=== PATIENT | male | born 1960 | race Caucasian/White ===

== ENCOUNTER 2018-01-16 17:27 | Emergency (ER) | payer OTHER ==
[~2018-01-16] VITALS: Ht 180.3 cm; Wt 74.8 kg
[2018-01-16 17:36] VITALS: Ht 180.3 cm; Wt 74.8 kg
[2018-01-16] MEDS ORDERED: KETOROLAC TROMETHAMINE 30 MG/ML VIAL IV STA (17:45)
[2018-01-16] MEDS ORDERED: SODIUM CHLORIDE 0.9% 1000ML 1,000 ML IV STA (17:45)
[2018-01-16] MEDS ORDERED: SODIUM CHLORIDE 0.9% 1000ML 1,000 ML IV ONE (17:45)
[2018-01-16] MEDS ORDERED: IBUP-1050 PO (17:59)
[2018-01-16] MEDS ORDERED: MULT20CH PO (17:59)
[2018-01-16] MEDS ORDERED: ACET-1256 PO (17:59)
[2018-01-16] MEDS ORDERED: OPTIRAY 320 IV PRN (18:00)
[2018-01-16 18:42] LABS: BASO % 0.8 %; BASO ABS # 0.05 K/uL (0-0.2); EOS % 4.1 %; EOS ABS # 0.25 K/uL (0-0.5); HEMOGLOBIN 14.7 g/dL (14.0-18.0); IG# 0.01 K/uL (0.00-0.02); LYMPH % 40.5 %; LYMPH ABS # 2.45 K/uL (1.2-3.4); MEAN CELL VOLUME 95.6 fL (80-100); MEAN CORPUSCULAR HEMOGLOBIN 34.3 pg (25-34); MEAN CORPUSCULAR HGB CONC 35.9 g/dl (32-36); MEAN PLATELET VOLUME 9.5 fL (7.4-10.4); MONO % 9.3 %; MONO ABS # 0.56 K/uL (0.11-0.59); NEUT % 45.1 %; NEUT ABS # 2.73 K/uL (1.4-6.5); PLATELET COUNT 227 K/uL (130-400); RED CELL DISTRIBUTION WIDTH CV 13.3 % (11.5-14.5); RED CELL DISTRIBUTION WIDTH SD 46.4 fL (36.4-46.3); WHITE BLOOD COUNT 6.05 K/uL (4.8-10.8)
[2018-01-16 20:37] LABS: ALBUMIN 3.8 gm/dl (3.4-5.0); ALKALINE PHOSPHATASE 78 U/L (45-117); ALT/SGPT 64 U/L (12-78); AST/SGOT 50 U/L (15-37); BLOOD UREA NITROGEN 13 mg/dl (7-18); CALCIUM 7.9 mg/dl (8.5-10.1); CARBON DIOXIDE 22 mmol/L (21-32); CREATININE 0.86 mg/dl (0.60-1.40); GLUCOSE 87 mg/dl (70-99); LIPASE 194 U/L (73-393); POTASSIUM 3.3 mmol/L (3.5-5.1); SODIUM 129 mmol/L (136-145); TOTAL PROTEIN 7.6 gm/dl (6.4-8.2)
--- NOTE | 2018-01-16 21:28 | DIAGNOSTIC IMAGING REPORT ---
CT SCAN OF THE ABDOMEN AND PELVIS WITH IV CONTRAST CLINICAL HISTORY: Right lower quadrant abdominal pain. COMPARISON STUDY: No priors. TECHNIQUE: Following the IV administration of 120 cc of Optiray 320, CT scan of the abdomen and pelvis is performed from the lung bases to the proximal femora. Images are reviewed in the axial, sagittal, and coronal planes. IV contrast was administered without complication. A dose lowering technique was utilized adhering to the principles of ALARA. CT DOSE: 324.17 mGy.cm FINDINGS: Lung bases: The heart is normal in size and without pericardial effusion. The coronary arteries are densely calcified. Emphysematous change is suggested at the lung bases. There is dependent atelectasis. No airspace consolidation or pleural effusion is identified. Chronic change is partially imaged in the lingula. A small hiatal hernia is observed. Liver: The contrast-enhanced liver is enlarged, measuring 20.9 cm in length. The liver demonstrates diffusely diminished attenuation consistent with hepatic steatosis. There is no intrahepatic biliary ductal dilatation. The hepatic veins and portal veins are patent. Gallbladder: Unremarkable. Spleen: Normal in size and attenuation. Pancreas: Unremarkable. Adrenal glands: Unremarkable. Kidneys: The contrast enhanced kidneys are normal in size and without hydronephrosis. The kidneys enhance symmetrically. Abdominal vasculature: The abdominal aorta is normal in course and caliber noting moderate atherosclerotic calcification. Bowel: There is mild colonic diverticulosis without CT evidence of acute diverticulitis. No bowel obstruction is seen. The appendix is well-visualized and normal. Peritoneum: There is no intraperitoneal free air or abdominal ascites. There is a small fat-containing umbilical hernia. Lymphadenopathy: None. Pelvic viscera: There is median lobe hypertrophy of the prostate gland. The bladder wall appears mildly thickened and trabeculated suggesting chronic outlet obstruction. Skeletal structures: There is mild/moderate lumbosacral spondylosis. Healed bilateral rib fractures are noted. No lytic or blastic lesions are seen. IMPRESSION: 1. There are no acute infectious or inflammatory findings in the abdomen or pelvis. 2. There is mild colonic diverticulosis without CT evidence of acute diverticulitis. 3. The coronary arteries are densely calcified. Consider nonemergent cardiology follow-up. 4. Hepatomegaly and hepatic steatosis. 5. There are chronic appearing changes suggested in the lingula. Follow-up chest x-ray is recommended. Electronically signed by: Liu Dawson M.D. 01/16/2018 9:27 PM Dictated Date/Time: 01/16/2018 9:20 PM
[2018-01-16 21:50] VITALS: BP 163/102; PULSE 77; TEMP 36.8; O2SAT 97
--- NOTE | 2018-01-16 23:18 | EMERGENCY ROOM VISIT NOTE ---
History Report prepared by Bernadette: Aarti Burnett Under the Supervision of: Dr. Rocky Hugo M.D. First contact with patient: 17:39 Chief Complaint: ABDOMINAL PAIN Stated Complaint: RLQ PAIN History of Present Illness The patient is a 57 year old male who presents to the Emergency Room with complaints of constant pain in his right lower abdomen that onset today. He notes that occasionally his abdomen will "sink in on the right side and then get bigger on the left". The patient notes that his pain increases with bending and lifting. The patient denies nausea, vomiting, back pain, genital pain, heart burn symptoms, leg pain, and urinary symptoms. He denies any trauma to cause the pain. He notes that this issue has happened before. He states that he took Tylenol and Ibuprofen this morning for the pain, but they did not help to reduce the pain. The patient states that he is a smoker and drinks daily. He denies any other drug use. The patient notes that he had a surgery on his nose two years ago, but denies any abdominal surgeries. Source of History: patient Onset: Today Position: abdomen Timing: constant Modifying Factors (Worsening): exertion, other (bending) Associated Symptoms: No nausea, No vomiting, No back pain, No urinary symptoms Note: The patient denies genital pain, heart burn symptoms, and leg pain. Review of Systems See HPI for pertinent positives and negatives. A total of ten systems were reviewed and were otherwise negative. Social History Smoking Status: Current Every Day Smoker Alcohol Use: other (daily) Drug Use: none Current/Historical Medications Scheduled Multiple Vitamins W/ Minerals (Adult One Daily Gummies), 1 TAB PO DAILY Scheduled PRN Acetaminophen (Tylenol), 1,000-2,000 MG PO DIRECTED PRN for Pain Ibuprofen (Advil), 200-600 MG PO Q4H PRN for Pain Allergies Coded Allergies: No Known Allergies (Unverified , 01/16/18) Physical Exam Vital Signs Date Time Temp Pulse Resp B/P (MAP) Pulse Ox O2 Delivery O2 Flow Rate FiO2 01/16/18 21:50 36.8 77 18 163/102 97 01/16/18 21:45 77 18 163/102 97 Room Air 01/16/18 20:58 74 18 145/96 95 Room Air 01/16/18 20:37 68 22 157/103 97 Room Air 01/16/18 20:01 122/90 01/16/18 19:57 61 14 96 01/16/18 19:34 158/94 01/16/18 19:27 72 16 98 01/16/18 19:01 78 21 159/100 97 Room Air 01/16/18 19:00 159/100 01/16/18 18:30 148/102 01/16/18 18:27 76 19 96 01/16/18 18:00 129/78 01/16/18 17:58 72 01/16/18 17:57 78 14 97 01/16/18 17:55 132/95 01/16/18 17:36 36.8 77 18 130/76 98 Room Air Physical Exam GENERAL: Awake, alert, well-appearing, in no distress HENT: Normocephalic, atraumatic. Oropharynx unremarkable. EYES: Normal conjunctiva. Sclera non-icteric. NECK: Supple. No nuchal rigidity. RESPIRATORY: Clear to auscultation. No wheezes. Normal respiratory effort. CARDIAC: Normal rate. Normal rhythm. Extremities warm and well perfused. GI: Soft, non-distended. Right lower quadrant periumbilical tenderness. No masses. Negative Obturator sign. RECTAL: Deferred. MUSCULOSKELETAL: Atraumatic. Chest examination reveals no tenderness. There is no CVA tenderness to palpation. LOWER EXTREMITIES: Calves are equal size bilaterally and non-tender. No edema NEURO: Normal sensorium. No sensory or motor deficits noted. No facial droop. SKIN: Warm and dry. No rash or jaundice noted. Medical Decision & Procedures ER Provider Diagnostic Interpretation: Radiology results as stated below per my review and radiologist interpretation: CT SCAN OF THE ABDOMEN AND PELVIS WITH IV CONTRAST CLINICAL HISTORY: Right lower quadrant abdominal pain. COMPARISON STUDY: No priors. TECHNIQUE: Following the IV administration of 120 cc of Optiray 320, CT scan of the abdomen and pelvis is performed from the lung bases to the proximal femora. Images are reviewed in the axial, sagittal, and coronal planes. IV contrast was administered without complication. A dose lowering technique was utilized adhering to the principles of ALARA. CT DOSE: 324.17 mGy.cm FINDINGS: Lung bases: The heart is normal in size and without pericardial effusion. The coronary arteries are densely calcified. Emphysematous change is suggested at the lung bases. There is dependent atelectasis. No airspace consolidation or pleural effusion is identified. Chronic change is partially imaged in the lingula. A small hiatal hernia is observed. Liver: The contrast-enhanced liver is enlarged, measuring 20.9 cm in length. The liver demonstrates diffusely diminished attenuation consistent with hepatic steatosis. There is no intrahepatic biliary ductal dilatation. The hepatic veins and portal veins are patent. Gallbladder: Unremarkable. Spleen: Normal in size and attenuation. Pancreas: Unremarkable. Adrenal glands: Unremarkable. Kidneys: The contrast enhanced kidneys are normal in size and without hydronephrosis. The kidneys enhance symmetrically. Abdominal vasculature: The abdominal aorta is normal in course and caliber noting moderate atherosclerotic calcification. Bowel: There is mild colonic diverticulosis without CT evidence of acute diverticulitis. No bowel obstruction is seen. The appendix is well-visualized and normal. Peritoneum: There is no intraperitoneal free air or abdominal ascites. There is a small fat-containing umbilical hernia. Lymphadenopathy: None. Pelvic viscera: There is median lobe hypertrophy of the prostate gland. The bladder wall appears mildly thickened and trabeculated suggesting chronic outlet obstruction. Skeletal structures: There is mild/moderate lumbosacral spondylosis. Healed bilateral rib fractures are noted. No lytic or blastic lesions are seen. IMPRESSION: 1. There are no acute infectious or inflammatory findings in the abdomen or pelvis. 2. There is mild colonic diverticulosis without CT evidence of acute diverticulitis. 3. The coronary arteries are densely calcified. Consider nonemergent cardiology follow-up. 4. Hepatomegaly and hepatic steatosis. 5. There are chronic appearing changes suggested in the lingula. Follow-up chest x-ray is recommended. Electronically signed by: Liu Dawson M.D. 01/16/2018 9:27 PM Dictated Date/Time: 01/16/2018 9:20 PM Laboratory Results 01/16/18 18:24 Red Blood Count 4.29, Mean Corpuscular Volume 95.6, Mean Corpuscular Hemoglobin 34.3, Mean Corpuscular Hemoglobin Concent 35.9, Mean Platelet Volume 9.5, Neutrophils (%) (Auto) 45.1, Lymphocytes (%) (Auto) 40.5, Monocytes (%) (Auto) 9.3, Eosinophils (%) (Auto) 4.1, Basophils (%) (Auto) 0.8, Neutrophils # (Auto) 2.73, Lymphocytes # (Auto) 2.45, Monocytes # (Auto) 0.56, Eosinophils # (Auto) 0.25, Basophils # (Auto) 0.05 01/16/18 18:24 Test 01/16/18 18:24 01/16/18 18:55 White Blood Count 6.05 K/uL (4.8-10.8) Red Blood Count 4.29 M/uL (4.7-6.1) Hemoglobin 14.7 g/dL (14.0-18.0) Hematocrit 41.0 % (42-52) Mean Corpuscular Volume 95.6 fL (80-100) Mean Corpuscular Hemoglobin 34.3 pg (25-34) Mean Corpuscular Hemoglobin Concent 35.9 g/dl (32-36) Platelet Count 227 K/uL (130-400) Mean Platelet Volume 9.5 fL (7.4-10.4) Neutrophils (%) (Auto) 45.1 % Lymphocytes (%) (Auto) 40.5 % Monocytes (%) (Auto) 9.3 % Eosinophils (%) (Auto) 4.1 % Basophils (%) (Auto) 0.8 % Neutrophils # (Auto) 2.73 K/uL (1.4-6.5) Lymphocytes # (Auto) 2.45 K/uL (1.2-3.4) Monocytes # (Auto) 0.56 K/uL (0.11-0.59) Eosinophils # (Auto) 0.25 K/uL (0-0.5) Basophils # (Auto) 0.05 K/uL (0-0.2) RDW Standard Deviation 46.4 fL (36.4-46.3) RDW Coefficient of Variation 13.3 % (11.5-14.5) Immature Granulocyte % (Auto) 0.2 % Immature Granulocyte # (Auto) 0.01 K/uL (0.00-0.02) Anion Gap 11.0 mmol/L (3-11) Est Creatinine Clear Calc Drug Dose 100.3 ml/min Estimated GFR () 111.6 Estimated GFR (Non- 96.3 BUN/Creatinine Ratio 14.7 (10-20) Lactic Acid Level 1.3 mmol/L (0.4-2.0) Calcium Level 7.9 mg/dl (8.5-10.1) Total Bilirubin 1.4 mg/dl (0.2-1) Direct Bilirubin 0.4 mg/dl (0-0.2) Aspartate Amino Transf (AST/SGOT) 50 U/L (15-37) Alanine Aminotransferase (ALT/SGPT) 64 U/L (12-78) Alkaline Phosphatase 78 U/L (45-117) Troponin I < 0.015 ng/ml (0-0.045) Total Protein 7.6 gm/dl (6.4-8.2) Albumin 3.8 gm/dl (3.4-5.0) Lipase 194 U/L (73-393) Urine Color YELLOW Urine Appearance CLEAR (CLEAR) Urine pH 5.5 (4.5-7.5) Urine Specific [place] 1.010 (1.000-1.030) Urine Protein NEG (NEG) Urine Glucose (UA) NEG (NEG) Urine Ketones NEG (NEG) Urine Occult Blood NEG (NEG) Urine Nitrite NEG (NEG) Urine Bilirubin NEG (NEG) Urine Urobilinogen NEG (NEG) Urine Leukocyte Esterase NEG (NEG) Laboratory results reviewed by me Medications Administered Medications (Trade) Dose Ordered Sig/Asim Route Start Time Stop Time Status Last Admin Dose Admin Sodium Chloride 1,000 ml @ 999 mls/hr Q1H1M STAT IV 01/16/18 17:45 01/16/18 18:45 DC 01/16/18 17:45 999 MLS/HR Ketorolac Tromethamine (Toradol Inj) 15 mg NOW STAT IV 01/16/18 17:45 01/16/18 17:47 DC 01/16/18 18:31 15 MG ECG Per My Interpretation Indication: abdominal pain Rate (beats per minute): 74 Rhythm: normal sinus Findings: other (Sinus arrhythmia, no ST segment elevation or depression, normal intervals. ) Comparison ECG Date: no prior available ED Course 1739: The patient was evaluated in room B12A. A complete history and physical exam was performed. 1745: Ordered Sodium Chloride 1,000 ml@ 999 mls/hr IV, Toradol Ink 15 mg IV, Sodium Chloride 1,000 ml @ 999 mls/hr IV. 1800: Ordered Ioversol 100 ml IV. 2145: I reevaluated the patient. Discussed results and discharge instructions: he verbalized understanding and agreement. The patient is ready for discharge. Medical Decision Differential diagnosis: Etiologies such as appendicitis, diverticulitis, PUD, biliary pathology, UTI, pancreatitis, obstruction, mesenteric ischemia, aortic pathology, infections, inflammatory bowel disease, renal colic, as well as others were entertained. Patient presents with onset of severe right lower quadrant pain starting today somewhat intermittent waxing and waning in nature. Occasionally radiates the periumbilical area. No nausea vomiting or diarrhea. 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 Denies back pain. Denies any sciatica symptoms. States occasionally past he has had some pain here but not like this. No testicular pain or masses. No chest pain or shortness of breath. Took Tylenol and Motrin with minimal improvement. Does have right lower quadrant tender without evidence of obvious hernia. CT of the abdomen pelvis completed. Basic laboratory studies look for possible hepatitis , pancreatitis, colitis, hernia, or appendicitis. Laboratory studies are significant only for some Hyponatremia. His pain is improved here upon reevaluation.. I doubt this is appendicitis. CT scan showed no acute intra- abdominal abnormality. Doubt hernia. Likely this is muscular skeletal pain and cramping; could be precipitated by his mild hyponatremia. Patient is otherwise well-appearing and can undergo an outpatient further workup for this. Was made aware of the findings of the lingula changes and some coronary calcifications advised to follow-up with his regular doctor regarding these. Will recommend patient continue to maintain hydration and follow-up as an outpatient at this time. Medication Reconcilliation Current Medication List: was personally reviewed by me Blood Pressure Screening Patient's blood pressure: Elevated blood pressure Blood pressure disposition: Referred to PCP Impression Primary Impression: Right lower quadrant abdominal pain Additional Impression: Hyponatremia Scribe Attestation The scribe's documentation has been prepared under my direction and personally reviewed by me in its entirety. I confirm that the note above accurately reflects all work, treatment, procedures, and medical decision making performed by me. Departure Information Dispostion Home / Self-Care Referrals Kimmy Randle DO (PCP) Forms Call Back Authorization, HOME CARE DOCUMENTATION FORM, IMPORTANT VISIT INFORMATION Patient Instructions My [facility] Additional Instructions Please continue to maintain good hydration. Recommend follow-up with a primary care physician in the next 3 days to discuss your symptoms, her sodium level, some findings of possible heart disease on imaging, and chronic lingular lung changes. May utilize [id number] pain medicine such as Tylenol for any recurrent pain symptoms. If you have any new or worrisome symptoms including but not limited to significant intractable abdominal pain, nausea, vomiting, fever, chest pain, or other concerns please represent for reevaluation. Would recommend some rest over the next several days as well as you are able. Problem Qualifiers
== END 2018-01-16 21:52 | disposition home or self-care (01) ==
LOC: C.EDB 17:28
DX: R10.31 Right lower quadrant pain (principal); E87.1 Hypo-osmolality and hyponatremia; I25.10 Atherosclerotic heart disease of native coronary artery without angina pectoris; F17.200 Nicotine dependence, unspecified, uncomplicated

== ENCOUNTER 2018-07-23 05:27 | Inpatient (IN) ==
--- NOTE | 2018-07-21 10:23 | Anesthesiology Consultation ---
Date of Service July 21, 2018 Assessment & Plan Chart Review Chart Review: Acceptable Risk for Surgery (PENDING PREOP CBC, BMP ORDERED BY SURGEON) and Patient NOT seen in Pre Admission Testing History Surgery Operation Date: 07/23/18 07:30 Proposed Procedures p Left Robotic Video Assisted Thoracoscopy with Chest Wall Resection - Brant Veloz MD, FACS Height/Weight Height: 5 ft 11 in Weight: 78.018 kg Allergies Allergy/AdvReac Type Severity Reaction Status Date / Time No Known Allergies Allergy Verified 07/11/18 08:02 Medications Home Medications Medication Instructions Recorded Confirmed Last Taken albuterol sulfate [ProAir HFA] 1 - 2 puff INHALATION Q6H PRN 07/11/18 07/11/18 Unknown amoxicillin-pot clavulanate 1 tab PO Q12H 07/11/18 07/11/18 Unknown loratadine 10 mg PO QAM 07/11/18 07/11/18 Unknown tiotropium bromide [Spiriva 2 puff INHALATION BID 07/11/18 07/11/18 Unknown Respimat] Past Medical History Medical History Chest wall mass Chronic obstructive pulmonary disease Past Surgical History Surgical History History of nasal cauterization Social History tobacco type: cigarettes Smoking cigarettes per day: QUIT 2 WEEKS AGO-ON PATCH Do You Dip or Chew Tobacco: No Hx Alcohol Use: Yes Alcohol type: beer alcohol intake frequency: a few times a week Hx Substance Use: No substance use type: does not use Testing Electrocardiogram Date: 01/16/18 NSR with sinus arrhythmia at 74bpm.
[2018-07-23 05:56] LABS: Hematocrit (blood only) 43.9 % (42-52); Hemoglobin 15.6 g/dL (14.0-18.0); Mean Platelet Volume 9.3 fL (7.4-10.4); Platelet Count 202 K/uL (130-400); RDW Coefficient of Variation 13.4 % (11.5-14.5); RDW Standard Deviation 46.3 fL (36.4-46.3); Red Blood Count 4.67 M/uL (4.7-6.1); White Blood Count 5.59 K/uL (4.8-10.8)
[2018-07-23 06:02] LABS: Mean Corpuscular Hgb Conc 35.5 g/dL (32-36)
[2018-07-23 06:14] LABS: BUN Creatinine Ratio 11.9 (10-20); Calcium 8.4 mg/dl (8.5-10.1); Creatinine Clr Calc Pharmacy 112.8 ml/min; Est GFR (African American) 116.6; Est GFR (Non-African American) 100.6; Potassium 4.2 mmol/L (3.5-5.1)
--- NOTE | 2018-07-23 06:53 | History & Physical Bridge Note ---
Date of Service July 23, 2018 History & Physical Bridge Note I have examined the patient, reviewed the History & Physical and in the interval since the performance of the History & Physical I have noted the following changes of clinical significance: no changes noted
[2018-07-23] MEDS ORDERED: SODIUM CHLORIDE 0.9% PF 50 ML VIAL ONE (06:59)
[2018-07-23] MEDS ORDERED: BUPIVACAINE LIPOSOME 1.3% 266 MG/20 ML VIAL ONE (06:59)
[2018-07-23] MEDS ORDERED: BUPIVACAINE 0.5 % 5 MG/1 ML MPF 30ML VIAL ONE (06:59)
[2018-07-23] MEDS ORDERED: PHENYLEPHRINE HCL 10 MG/ML VIAL ONE (07:08)
[2018-07-23] MEDS ORDERED: GLYCOPYRROLATE 0.2 MG/ML VIAL ONE (07:08)
[2018-07-23] MEDS ORDERED: LIDOCAINE HCL 2% 2 ML VIAL/AMP(20MG/ML) INFIL ONE (07:08)
[2018-07-23] MEDS ORDERED: DEXAMETHASONE SOD INJ 4 MG/ML VIAL ONE (07:08)
[2018-07-23] MEDS ORDERED: NEOSTIGMINE METHYLSULFATE 5 MG/5 ML SYR ONE (07:08)
[2018-07-23] MEDS ORDERED: SUCCINYLCHOLINE CHLORIDE 20 MG/ML 10 ML VIAL ONE (07:08)
[2018-07-23] MEDS ORDERED: ePHEDrine sulfate 50 MG/ML AMP ONE (07:08)
[2018-07-23] MEDS ORDERED: ONDANSETRON INJ 2 MG/ML 2 ML VIAL ONE (07:08)
[2018-07-23] MEDS ORDERED: PROPOFOL IV EMULSION 10 MG/ML 20 ML VIAL IV ONE (07:08)
[2018-07-23] MEDS ORDERED: MIDAZOLAM HCL 1 MG/ML 2ML VIAL ONE (07:09)
[2018-07-23] MEDS ORDERED: fentaNYL citrate 100 MCG/2 ML VIAL ONE ×2 (07:09→10:29)
[2018-07-23] MEDS ORDERED: ALBUT/IPRATROP 3MG/0.5MG NEB 3 ML VIAL ONE (07:23)
[2018-07-23] MEDS ORDERED: ALBUT/IPRATROP 3MG/0.5MG NEB 3 ML VIAL NEB STA (07:30)
[2018-07-23] MEDS ORDERED: ATROPINE SULFATE 0.1 MG/ML 10ML SYR IV PRN (07:31)
[2018-07-23] MEDS ORDERED: PHENYLEPHRINE 100MCG/ML 5ML SYR IV PRN (07:31)
[2018-07-23] MEDS ORDERED: MEPERIDINE HCL 25 MG/ML CARP IV PRN (07:31)
[2018-07-23] MEDS ORDERED: fentaNYL citrate 100 MCG/2 ML VIAL IV PRN (07:31)
[2018-07-23] MEDS ORDERED: ONDANSETRON INJ 2 MG/ML 2 ML VIAL IV PRN ×2 (07:31→12:22)
[2018-07-23] MEDS ORDERED: HYDROmorphone INJ 1 MG/ML SYRINGE IV PRN (07:31)
[2018-07-23] MEDS ORDERED: ePHEDrine sulfate 50 MG/ML AMP IV PRN (07:31)
[2018-07-23] MEDS ORDERED: CEFAZOLIN 250 MG/ML 1 GM VIAL ONE (08:04)
[2018-07-23] MEDS ORDERED: CEFAZOLIN 2000MG 2,000 MG/15 ML SYR IV SCH ×2 (08:45→09:30)
[2018-07-23] MEDS ORDERED: ROCURONIUM BROMIDE 10 MG/ML 5 ML VIAL ONE (09:05)
--- NOTE | 2018-07-23 10:15 | Post Operative Brief Note ---
Immediate Post Op Note v1 Date of Surgery July 23, 2018 Pre & Post Diagnosis Operation Date: 07/23/18 07:30 Pre-Op Diagnosis: Left 4th rib Mass Post-Op Diagnosis: Left 4th rib Mass Procedure Operation Date: 07/23/18 07:30 Actual Procedures p Left Robotic Video Assisted Thoracoscopy with Chest Wall Resection(Left) and reconstruction with prosthetic mesh - Brant Veloz MD, FACS Surgeon Brant Veloz MD, FACS Office Services Manager Edgardo VÁSQUEZ Estimated Blood Loss 15 Findings Consistent with Post-Op Diagnosis Drains Chest Tube
[2018-07-23] MEDS ORDERED: METOCLOPRAMIDE HCL INJ 5 MG/ML 2 ML VIAL IV ONE (10:35)
[2018-07-23] MEDS: LABETALOL HCL IV 5 MG/ML 20ML IV PRN ×3 (11:01→11:16)
--- NOTE | 2018-07-23 11:14 | XRay Report ---
SINGLE VIEW CHEST CLINICAL HISTORY: Status post rib resection. FINDINGS: An AP, portable, upright chest radiograph is compared to study dated 02/07/2018. Correlation is made with chest CT dated 02/28/2018. A left-sided chest tube is new from previous. Postoperative c hange is seen involving the left anterior fourth rib. The cardiomediastinal silhouette is unremarkabl e. Emphysema and chronic interstitial thickening are similar to previous. No airspace consolidation o r pleural effusion is identified. There is bibasilar atelectasis. Question a trace left apical pneumo thorax. The bony thorax is grossly intact. Subcutaneous emphysema is noted along the left chest wall. IMPRESSION: 1. A left-sided chest tube has been placed. A trace left apical pneumothorax is suspected. 2. Postoperative change is noted in the left anterior fourth rib. 3. No airspace consolidation or large pleural effusion is identified. Electronically signed by: Liu Dawson M.D. 07/23/2018 11:12 AM
--- NOTE | 2018-07-23 11:48 | Anesthesiology Progress Note ---
Date of Service July 23, 2018 Anesthesia Post Procedure Vital Signs Vital Signs: Temp Pulse Pulse Resp BP BP Pulse Ox 07/23/18 11:45 36.4 C L 73 12 96 07/23/18 11:43 66 12 150/99 H 97 07/23/18 11:41 71 18 147/100 H 97 07/23/18 11:40 61 14 98 07/23/18 11:36 68 12 165/99 H 97 07/23/18 11:35 58 L 13 97 07/23/18 11:32 60 16 168/97 H 97 07/23/18 11:31 59 L 15 152/104 H 99 07/23/18 11:30 67 13 95 07/23/18 11:27 68 13 166/96 H 95 07/23/18 11:26 62 18 148/102 H 97 07/23/18 11:25 66 14 98 07/23/18 11:22 60 15 153/97 H 96 07/23/18 11:21 65 17 155/107 H 98 07/23/18 11:20 65 15 97 07/23/18 11:16 61 14 168/106 H 98 07/23/18 11:15 65 15 99 07/23/18 11:11 64 13 158/93 H 99 07/23/18 11:10 61 14 98 07/23/18 11:06 59 L 14 165/92 H 100 07/23/18 11:05 71 11 L 98 07/23/18 11:02 71 13 97 07/23/18 11:01 68 14 168/105 H 99 07/23/18 11:00 77 16 98 07/23/18 10:57 75 13 175/101 H 98 07/23/18 10:56 77 12 157/110 H 98 07/23/18 10:55 79 20 97 07/23/18 10:51 76 13 164/98 H 98 07/23/18 10:50 74 13 99 07/23/18 10:46 71 12 152/99 H 99 07/23/18 10:45 74 17 97 07/23/18 10:42 72 15 152/106 H 98 07/23/18 10:41 74 17 151/105 H 97 07/23/18 10:40 80 15 99 07/23/18 10:36 83 17 97 07/23/18 10:35 36.4 C L 80 82 17 152/87 H 152/87 H 97 07/23/18 10:33 96 07/23/18 06:03 36.6 C 80 18 150/97 H 96 Notes Mental Status: alert / awake / arousable Patient Amnestic to Procedure: Yes Nausea / Vomiting: adequately controlled Pain: adequately controlled Airway Patency, RR, SpO2: stable & adequate BP & HR: stable & adequate Hydration State: stable & adequate Anesthetic Complications: no major complications apparent and Pt Satisfied with anesthetic care Notes: The patient is awake and comfortable in PACU. His vitals are stable.
[2018-07-23] MEDS ORDERED: MoRPHine SULFATE 4 MG/ML 1 ML CARP\\VIAL IV PRN (12:22)
[2018-07-23] MEDS ORDERED: D5W AND 1/2NSS 1,000 ML IV SCH (12:45)
[2018-07-23] MEDS: ACETAMINOPHEN 1,000 MG/100 ML VIAL IV SCH ×2 (14:00→20:31)
[2018-07-23] MEDS: TIOTROPIUM BROMIDE 5 PUFF/90 MCG INH INH SCH (14:01)
[2018-07-23] MEDS: KETOROLAC TROMETHAMINE 15 MG/ML VIAL IV PRN (15:35)
--- NOTE | 2018-07-23 20:29 | Operative Report ---
DATE OF OPERATION: 07/23/2018 PREOPERATIVE DIAGNOSIS: Mass, left fourth rib. POSTOPERATIVE DIAGNOSIS: Same. PROCEDURE: Robot-assisted thoracoscopic resection of left 4th rib. SURGEON: Brant Veloz MD HOTEL CUSTODIAN: FAHAD Estrada (Mr. Peraza was present for the entire case and was at the patient's bedside while I was at the console). ANESTHESIA: General anesthesia, endotracheal intubation using double lumen tube. 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 It is unclear whether this represented a benign etiology and really the only way to tell would be to remove it. After a long discussion, we elected to proceed with resection. On 07/23/2018, the patient underwent an uncomplicated robot-assisted left thoracoscopy. The mass was not growing into anything. It was not attached to the lung. We got good margins and removed it robotically and took it out longitudinally through the assistance port. He tolerated it very well with negligible blood loss and was extubated in the room. DESCRIPTION OF PROCEDURE: The patient was brought to the operating room and laid in supine position. General anesthesia was induced and endotracheal intubation was performed with a double lumen tube. The patient was then placed in the right lateral decubitus position. The left chest was prepped and draped in the usual sterile fashion. At approximately the 10th interspace just posterior to the mid axillary line, a camera port was placed. Upon placing the 5 mm thoracoscope first, it could be seen that we were in good position and had excellent visualization of this mass which was not attached to any underlying tissues and was confined to the 4th rib right near the rib and cartilage junction. We then put an 8 mm port more posteriorly and superiorly and another 8 mm port more medially and the assistance port was placed just above the diaphragm, 15 mm port. A 5 mm port was exchanged out for a 12 mm port and we docked the camera. First it should be noted that Exparel 266 mg was mixed with 250 mL of normal saline and 30 mL of 0.25% Marcaine injected into each of the 4 ports prior to placing the ports. We then went and did a block from the 2nd to the 11th rib. This was an intercostal intrathoracic block. We injected the Exparel under visualization into each of the interspaces. After docking the robot, we then used heat and with the cautery, I scored up in the interspace above and the interspace below the mass which was growing out of the 4th rib. I then scored the ribs posteriorly and anteriorly and it gave us about a 3 cm margin on each. With the cautery scissors, I was able to cut through the cartilage anteriorly. Posteriorly, we used an upper biting rongeur and we were able to cut through this. We then divided the rest of the tissue and it did not appear to be growing through the anterior cortex of the rib. We then this. We really did not get any bleeding from the intercostals. We then placed this in a bag. A nonabsorbable mesh was then used. This was a 7.5 x 13 cm mesh which we cut to size. I then used 2-0 Prolene and sutured this to cover this opening and prevent a lung herniation. This went well and we just tacked it down to keep it in place. The patient tolerated it quite well. We really began to note no bleeding, really no air leak. A 24-Lux[place]bourgish chest tube was then placed through the anterior port and directed towards the apex. We were able to deliver the mass longitudinally through our assistance port without difficulty and without enlarging it too much. This muscle layer was closed with 0 Vicryl in a running continuous fashion and then 4-0 Monocryl was used to close all of the skin incisions. We did hold this to the chest tube in with heavy silk suture. The patient was extubated in the room. He tolerated it well. I attest to the content of the Intraoperative Record and any orders documented therein. Any exception s are noted below.
[2018-07-23] MEDS: METOCLOPRAMIDE HCL INJ 5 MG/ML 2 ML VIAL IV SCH (20:31)
[2018-07-23] MEDS: DOCUSATE SODIUM 100 MG CAP PO SCH (20:31)
[2018-07-24] MEDS: METOCLOPRAMIDE HCL INJ 5 MG/ML 2 ML VIAL IV SCH (04:57)
[2018-07-24] MEDS: ACETAMINOPHEN 1,000 MG/100 ML VIAL IV SCH (04:57)
[2018-07-24] MEDS: KETOROLAC TROMETHAMINE 15 MG/ML VIAL IV PRN ×3 (05:30→23:48)
[2018-07-24 06:55] LABS: Partial Thromboplastin Ratio 1.1; Partial Thromboplastin Time 27.4 Seconds (21.0-31.0); Prothrombin Time 10.1 Seconds (9.0-12.0)
--- NOTE | 2018-07-24 07:10 | XRay Report ---
XR chest 1V portable CLINICAL HISTORY: left rib resection COMPARISON STUDY: 07/23/2018 FINDINGS: Postsurgical changes are present on the left with partial resection of the left fourth rib. There is left-sided subcutaneous emphysema. A left-sided chest tube is again evident. There is 25 mm left apical pneumothorax. There is no focal pulmonary consolidation.[ IMPRESSION: 1. 25 mm left apical pneumothorax 2. A left-sided chest tube is again visualized. 3. Persistent subcutaneous emphysema on the left Electronically signed by: Fabien Morataya M.D. 07/24/2018 7:08 AM
[2018-07-24] MEDS: OXYCODONE HCL IR 5 MG TAB (IMMEDIATE RELEASE) PO PRN (08:01)
[2018-07-24] MEDS: LORATADINE 10 MG TAB PO SCH (09:45)
[2018-07-24] MEDS: DOCUSATE SODIUM 100 MG CAP PO SCH ×2 (09:46→19:58)
[2018-07-24] MEDS: TIOTROPIUM BROMIDE 5 PUFF/90 MCG INH INH SCH (09:47)
[2018-07-24] MEDS: ENOXAPARIN INJ 40 MG/0.4 ML SYR SQ SCH (09:48)
--- NOTE | 2018-07-24 10:20 | Anesthesiology Progress Note ---
Date of Service July 24, 2018 Anesthesia Post Procedure Vital Signs Vital Signs: Temp Pulse Pulse Resp BP BP Pulse Ox 07/24/18 08:46 07/24/18 07:23 36.7 C 67 16 135/88 94 07/24/18 03:09 36.7 C 82 18 122/76 95 07/23/18 23:15 36.8 C 85 18 127/76 92 07/23/18 21:46 36.6 C 81 15 134/79 94 07/23/18 19:41 36.6 C 79 17 143/83 H 91 07/23/18 17:22 36.9 C 73 17 148/98 H 94 07/23/18 15:13 36.6 C 70 18 143/92 H 94 07/23/18 13:09 69 18 156/96 H 100 07/23/18 12:45 36.7 C 70 16 159/103 H 99 07/23/18 12:15 36.6 C 66 16 153/95 H 97 07/23/18 11:56 67 15 158/100 H 97 07/23/18 11:55 66 12 98 07/23/18 11:51 68 15 164/105 H 97 07/23/18 11:50 67 13 98 07/23/18 11:47 65 13 156/99 H 97 07/23/18 11:46 61 15 149/100 H 98 07/23/18 11:45 36.4 C L 73 12 96 07/23/18 11:43 66 12 150/99 H 97 07/23/18 11:41 71 18 147/100 H 97 07/23/18 11:40 61 14 98 07/23/18 11:36 68 12 165/99 H 97 07/23/18 11:35 58 L 13 97 07/23/18 11:32 60 16 168/97 H 97 07/23/18 11:31 59 L 15 152/104 H 99 07/23/18 11:30 67 13 95 07/23/18 11:27 68 13 166/96 H 95 07/23/18 11:26 62 18 148/102 H 97 07/23/18 11:25 66 14 98 07/23/18 11:22 60 15 153/97 H 96 07/23/18 11:21 65 17 155/107 H 98 07/23/18 11:20 65 15 97 07/23/18 11:16 61 14 168/106 H 98 07/23/18 11:15 65 15 99 07/23/18 11:11 64 13 158/93 H 99 07/23/18 11:10 61 14 98 07/23/18 11:06 59 L 14 165/92 H 100 07/23/18 11:05 71 11 L 98 07/23/18 11:02 71 13 97 07/23/18 11:01 68 14 168/105 H 99 07/23/18 11:00 77 16 98 07/23/18 10:57 75 13 175/101 H 98 07/23/18 10:56 77 12 157/110 H 98 07/23/18 10:55 79 20 97 07/23/18 10:51 76 13 164/98 H 98 07/23/18 10:50 74 13 99 07/23/18 10:46 71 12 152/99 H 99 07/23/18 10:45 74 17 97 07/23/18 10:42 72 15 152/106 H 98 07/23/18 10:41 74 17 151/105 H 97 07/23/18 10:40 80 15 99 07/23/18 10:36 83 17 97 07/23/18 10:35 36.4 C L 80 82 17 152/87 H 152/87 H 97 07/23/18 10:33 96 Pulse Ox 07/24/18 08:46 94 07/24/18 07:23 07/24/18 03:09 07/23/18 23:15 07/23/18 21:46 07/23/18 19:41 07/23/18 17:22 07/23/18 15:13 07/23/18 13:09 07/23/18 12:45 07/23/18 12:15 07/23/18 11:56 07/23/18 11:55 07/23/18 11:51 07/23/18 11:50 07/23/18 11:47 07/23/18 11:46 07/23/18 11:45 07/23/18 11:43 07/23/18 11:41 07/23/18 11:40 07/23/18 11:36 07/23/18 11:35 07/23/18 11:32 07/23/18 11:31 07/23/18 11:30 07/23/18 11:27 07/23/18 11:26 07/23/18 11:25 07/23/18 11:22 07/23/18 11:21 07/23/18 11:20 07/23/18 11:16 07/23/18 11:15 07/23/18 11:11 07/23/18 11:10 07/23/18 11:06 07/23/18 11:05 07/23/18 11:02 07/23/18 11:01 07/23/18 11:00 07/23/18 10:57 07/23/18 10:56 07/23/18 10:55 07/23/18 10:51 07/23/18 10:50 07/23/18 10:46 07/23/18 10:45 07/23/18 10:42 07/23/18 10:41 07/23/18 10:40 07/23/18 10:36 07/23/18 10:35 07/23/18 10:33 Pain Intensity Left Chest: Pain Intensity: 7 Notes Mental Status: alert / awake / arousable Patient Amnestic to Procedure: Yes Nausea / Vomiting: adequately controlled Pain: adequately controlled Airway Patency, RR, SpO2: stable & adequate BP & HR: stable & adequate Hydration State: stable & adequate Anesthetic Complications: no major complications apparent and Pt Satisfied with anesthetic care
--- NOTE | 2018-07-24 11:03 | Progress Note ---
DATE: 07/24/2018 Mr. Pineda looks great today. He is on room air. He is tolerating a regular diet. He is ambulating in the hallway. He is having some mild pain, but has done very well, was able to sleep last night. He appears to have a small air leak which is surprising to me since we did not do anything with the lung itself. I did not see an air leak, we inflated the lung, either. At any rate, he definitely has 1 small pneumothorax on his x-ray. We are going to place him on waterseal and leave him there and check an x-ray in the morning. It should be noted, he does not have an air leak on waterseal.
[2018-07-24] MEDS: ACETAMINOPHEN 325 MG TAB PO SCH ×3 (13:32→21:16)
[2018-07-24] MEDS: NICOTINE 14 MG/24 HR PATCH TD SCH (17:50)
[2018-07-24] MEDS: ALBUTEROL HFA 8 GM INHALER INH PRN (23:49)
[2018-07-25] MEDS: ACETAMINOPHEN 325 MG TAB PO SCH ×6 (02:29→22:05)
[2018-07-25] MEDS: ALBUTEROL HFA 8 GM INHALER INH PRN ×3 (06:15→20:35)
--- NOTE | 2018-07-25 07:49 | XRay Report ---
XR chest 1V portable CLINICAL HISTORY: pneumothorax COMPARISON STUDY: Chest radiograph July 24, 2018. FINDINGS: Extensive subcutaneous gas within the left chest wall and neck has increased since exam per formed July 24, 2018. There is suspected pneumomediastinum. Left apical chest tube is in place. E valuation for pneumothorax is difficult on this exam given subcutaneous emphysema. Possible displaced pleural line is noted superiorly. A medial pneumothorax is noted. IMPRESSION: 1. Increase in extensive subcutaneous gas within the left chest wall and neck. Suspected pneumomedias tinum. 2. Left apical chest tube in place. Probable left pneumothorax although size difficult to determine given subcutaneous emphysema. Electronically signed by: Tyrone Vasquez M.D. 07/25/2018 7:47 AM
[2018-07-25] MEDS: DOCUSATE SODIUM 100 MG CAP PO SCH ×2 (09:42→20:37)
[2018-07-25] MEDS: TIOTROPIUM BROMIDE 5 PUFF/90 MCG INH INH SCH (09:43)
[2018-07-25] MEDS: LORATADINE 10 MG TAB PO SCH (09:43)
[2018-07-25] MEDS: NICOTINE 14 MG/24 HR PATCH TD SCH (09:44)
[2018-07-25] MEDS: ENOXAPARIN INJ 40 MG/0.4 ML SYR SQ SCH (09:44)
--- NOTE | 2018-07-25 11:16 | XRay Report ---
XR chest 1V portable CLINICAL HISTORY: pneumothorax postoperative COMPARISON STUDY: 07/25/2018 at 7:00 AM FINDINGS: Left-sided chest tube remains in good position. Minimal pneumomediastinum.. No evidence for recurrent pneumothorax. Extensive subcutaneous emphysema and low cervical subcutaneous emphysema sim ilar. Right lung remains clear. IMPRESSION: 1. No significant pneumothorax. 2. Unchanging small pneumomediastinum. 3. Unchanging extensive subcutaneous emphysematous change. The above report was generated using voice recognition software. It may contain grammatical, syntax or spelling errors. Electronically signed by: Aric Joiner M.D. 07/25/2018 11:15 AM
[2018-07-25] MEDS: OXYCODONE HCL IR 5 MG TAB (IMMEDIATE RELEASE) PO PRN (14:45)
--- NOTE | 2018-07-25 16:24 | Progress Note ---
DATE: 07/25/2018 Mr. Pnieda was seen today. He looks fine. He did have some subcutaneous emphysema, which was much more on his x-ray and clinically, however, I switched him over to a Heimlich valve and the subcutaneous emphysema noticeably decreased over the course of the day. In addition, his air leak appears smaller, although persistent. It is unclear to me why he is leaking air. At any rate, his incisions looked good. He feels good, otherwise, is very little in the way of pain. He is ambulating in the hallway on room air. Tolerating a diet. He is having some nicotine withdrawal, but is doing well with nicotine patches. I discussed this case with pathology and it is interesting thus far. We are not quite clear what type of tumor this is; however, it was unusual on gross inspection. At any rate, we will have to wait to the permanent sections come out. It is still decalcifying.
[2018-07-26] MEDS: ACETAMINOPHEN 325 MG TAB PO SCH ×3 (01:38→10:42)
--- NOTE | 2018-07-26 07:03 | XRay Report ---
XR chest 1V portable CLINICAL HISTORY: pneumothorax COMPARISON STUDY: Chest radiograph July 25, 2018 10:50 AM. FINDINGS: Extensive gas within the left chest wall and neck is noted as well as suspected pneumomedia stinum. A left apical chest tube is in place. Evaluation for pneumothorax is difficult given subcutan eous gas. There is a suspected small pneumothorax with pleural separation of approximately 6 mm. Card iac size is normal. Mediastinal contours are normal. IMPRESSION: 1. Left apical chest tube in place. Suspected small left pneumothorax. 2. Subcutaneous gas within the chest and neck wall and pneumomediastinum which is similar to previous exam. Electronically signed by: Tyrone Vasquez M.D. 07/26/2018 7:02 AM
[2018-07-26] MEDS: OXYCODONE HCL IR 5 MG TAB (IMMEDIATE RELEASE) PO PRN (08:41)
[2018-07-26] MEDS: TIOTROPIUM BROMIDE 5 PUFF/90 MCG INH INH SCH (08:41)
[2018-07-26] MEDS: ALBUTEROL HFA 8 GM INHALER INH PRN (08:42)
[2018-07-26] MEDS: NICOTINE 14 MG/24 HR PATCH TD SCH (08:43)
[2018-07-26] MEDS: LORATADINE 10 MG TAB PO SCH (08:43)
[2018-07-26] MEDS: DOCUSATE SODIUM 100 MG CAP PO SCH (08:43)
[2018-07-26] MEDS: ENOXAPARIN INJ 40 MG/0.4 ML SYR SQ SCH (08:43)
[2018-07-26] MEDS: KETOROLAC TROMETHAMINE 15 MG/ML VIAL IV PRN (09:02)
--- NOTE | 2018-07-28 07:58 | Discharge Summary ---
Nabor Pineda is a 58-year-old male who had some pain in his left lateral chest and was found to have a mass growing out of his 4th rib. We had a long talk about this and electively planned to resect this. HOSPITAL COURSE: On 07/23/2018, the patient was brought to the operating room and underwent a robotic repair. His lung looked fine and we did not work on his lung at all. We were able to resect this rib without difficulty. I did not see an air leak at the time of surgery. It did not appear that he had an air leak. The following morning it was rather small. I put a Heimlich valve on him yesterday. He had subcutaneous emphysema and a small pneumothorax. He looked fine otherwise. We discussed keeping him or sending him home with a Heimlich valve in place. He really wanted to go home. His subcutaneous emphysema had improved clinically, although looked about the same on x-ray. I am going to send him home and see him back in the office in 5 days with an x-ray. I gave him oxycodone to go home. His incisions all looked good. The pathology is still pending on this mass. He tolerated it quite well. He looked quite good at the time of his discharge.
== END 2018-07-26 12:45 | disposition home health service (06) | DRG 168 ==
LOC: ASU 05:27 → 3N 10:23
DX: D16.7 Benign neoplasm of ribs, sternum and clavicle

== ENCOUNTER 2018-08-11 12:59 | Inpatient (IN) ==
[2018-08-11] MEDS ORDERED: VANCOMYCIN HCL 1,500 MG in SODIUM CHLORIDE 0.9% 500 ML IV ONE (14:10)
[2018-08-11] MEDS ORDERED: VANCOMYCIN CONSULT ACTIVE PRN (14:10)
[2018-08-11] MEDS ORDERED: PIPERACILL/TAZOBAC CONSULT ACTIVE PRN (14:12)
[2018-08-11] MEDS ORDERED: PIPERACILLIN/TAZOBACTAM 3.375 GM in DEXTROSE 5% 100 ML IV SCH (14:15)
[2018-08-11] MEDS ORDERED: ALBUTEROL HFA 8 GM INHALER INH PRN (14:20)
[2018-08-11 15:07] LABS: Hematocrit (blood only) 35.8 % (42-52); Hemoglobin 12.5 g/dL (14.0-18.0); Mean Corpuscular Volume 93.2 fL (80-100); Mean Platelet Volume 9.4 fL (7.4-10.4); Platelet Count 499 K/uL (130-400); RDW Coefficient of Variation 13.2 % (11.5-14.5); RDW Standard Deviation 44.7 fL (36.4-46.3); Red Blood Count 3.84 M/uL (4.7-6.1); White Blood Count 13.75 K/uL (4.8-10.8)
[2018-08-11 15:10] LABS: Mean Corpuscular Hgb Conc 34.9 g/dL (32-36)
--- NOTE | 2018-08-11 15:21 | Pharmacy Report ---
Pharmacy Abx Initial Consult - Date of Service August 11, 2018 - Pharmacy Dosing Scope Date of Consult: 3-4 Consultation requested by: Dr. Veloz Pharmacy is consulted to initiate vancomycin and zosyn dosing therapy, order appropriate labs and adjust drug dose/frequency. - Subjective The patient is a 58 year old M admitted on 08/11/18 13:19. - Objective Height: 5 ft 11 in Weight: 77 kg Vital Signs (Past 12hrs): Vital Signs Temp Pulse Resp BP Pulse Ox 08/11/18 13:30 36.4 C L 106 H 18 132/89 94 Micro Results: 08/11/18 14:46 Blood Culture - Pending Blood 08/11/18 14:39 Blood Culture - Pending Blood - Assessment & Plan Assessment/Plan Pharmacy consulted for vancomycin and zosyn for possible pneumonia. Per nurse, patient direct admit from 's office due to worsening respiratory symptoms. Blood cultures x 2 are pending at this time. Vancomycin: * 1750 mg (~23 mg/kg) loading dose ordered * Will start maintenance dosing of vancomycin 1000 mg (~13 mg/kg) iv q 8 hrs to achieve an estimated trough ~15-20 mcg/ml (goal for pneumonia) * Estimated kinetics: t1/2~8 hr, ke~0.08 hr-1, CrCl >100 ml/min; appears to be at baseline for Scr Zosyn: * 3.375 gm iv x 1 ordered; will start 3.375 gm iv q 8 hrs (appropriate for CrCl >20 ml/min) Pharmacy will continue to follow and will adjust dose/frequency as necessary. Thank you.
[2018-08-11 15:24] LABS: Albumin Level 2.2 gm/dl (3.4-5.0); BUN Creatinine Ratio 22.1 (10-20); Calcium 8.3 mg/dl (8.5-10.1); Creatinine Clr Calc Pharmacy 112.8 ml/min; Est GFR (African American) 116.6; Est GFR (Non-African American) 100.6; Phosphorus 4.2 mg/dl (2.5-4.9); Potassium 4.1 mmol/L (3.5-5.1)
[2018-08-11] MEDS ORDERED: PIPERACILLIN/TAZOBACTAM 3.375 GM in DEXTROSE 5% 100 ML IV ONE (15:30)
[2018-08-11] MEDS ORDERED: VANCOMYCIN HCL 1,750 MG in SODIUM CHLORIDE 0.9% 500 ML IV ONE (15:30)
[2018-08-11 15:34] LABS: Basophils # (auto) 0.05 K/uL (0-0.2); Basophils % (auto) 0.4 %; Eosinophils # (auto) 0.38 K/uL (0-0.5); Eosinophils % (auto) 2.8 %; Immature Granulocytes # (auto) 0.18 K/uL (0.00-0.02); Immature Granulocytes % (auto) 1.3 %; Lymphocytes # (auto) 1.48 K/uL (1.2-3.4); Lymphocytes % (auto) 10.8 %; Monocytes # (auto) 2.46 K/uL (0.11-0.59); Monocytes % (auto) 17.9 %; Neutrophils % (auto) 66.8 %; Toxic Granulation 1+
--- NOTE | 2018-08-11 15:54 | Anesthesiology Consultation ---
Date of Service August 11, 2018 Assessment & Plan Chart Review Chart Review: Pending: Refer to Additional Notes / Consult section (Pt is currently with acute hyponatremia. Will need to get sodium improved prior to surgery unless surgery is emergent. Will need to recheck sodium prior to case tomorrow. Dr. Veloz is aware of the hyponatremia and will get the hospitalist involved to manage the hyponatremia.) and Patient NOT seen in Pre Admission Testing Proposed Anesthesia Anesthesia Type: General Risk / Benefits Reviewed With: PT / POA / Parent / Guardian, Accepts Plan and Informed Consent Obtained Additional Comments: Risks and benefits of anesthesia explained to patient. Risks including possible post op intubation were also discussed. All questions and concerns were answered. Consent was signed by pt and witnessed by his nurse. History Surgery Operation Date: 08/11/18 15:10 Proposed Procedures p Left Video Assisted Thoracoscopy - Brant Veloz MD, FACS Height/Weight Height: 1.8 m Weight: 77 kg Allergies Allergy/AdvReac Type Severity Reaction Status Date / Time No Known Allergies Allergy Verified 07/11/18 08:02 Medications Home Medications Medication Instructions Recorded Confirmed Last Taken Spiriva Respimat 2 puff INHALATION BID 07/11/18 08/11/18 08/11/18 albuterol sulfate [ProAir HFA] 1 - 2 puff INHALATION Q6H PRN 07/11/18 08/11/18 Unknown loratadine 10 mg PO QAM 07/11/18 08/11/18 08/08/18 Advil 200 mg PO DAILY 08/11/18 08/11/18 08/11/18 09:00 Active Medications Generic Name Dose Route Start Last Admin Trade Name Freq PRN Reason Stop Dose Admin Diclofenac Sodium 1 appln 08/11/18 16:00 08/11/18 16:19 Voltaren 1% Top EXT 09/10/18 15:59 1 appln [id number] TYLER Administration Vancomycin HCl 1,750 mg/ 535 mls @ 200 mls/hr 08/11/18 15:30 08/11/18 15:55 Sodium Chloride IV 08/11/18 18:10 200 mls/hr TODAY@1530 ONE Administration Past Medical History Medical History Chest wall mass Chronic obstructive pulmonary disease No h/o prior hospitalization or intubation due to COPD. No home O2 Past Family History Family History Other Family history non-contributory Past Surgical History Surgical History S/P robot-assisted surgical procedure S/p Left robot assisted VATS on 07/23/18. Mac 3 with gr 1 view with VICENTE without issues History of nasal cauterization Past Anesthesia History No Hx of Anesthesia Complications and No Family Hx of Anesthesia Complications History of PONV No Motion Sickness Screening History of Motion Sickness: No Social History Smoking Status: Current every day smoker (2-5 cigs/day. Used to smoke 2ppd x 30 years) tobacco type: cigarettes Smoking cigarettes per day: 5-6 Do You Dip or Chew Tobacco: No Hx Alcohol Use: Yes Alcohol type: beer alcohol intake frequency: a few times a week Hx Substance Use: No substance use type: does not use Exercise / Class Metabolic Activity II 4-5 Yardwork/Stairs/Walk up hill Works with a tree service trimming around power lines. Walks around and active without issues of SOB or CP. Physical Exam Vital Signs Last Vital Signs Temp 37.0 C 08/11/18 16:34 Pulse 98 H 08/11/18 16:34 Resp 18 08/11/18 16:34 BP 137/76 08/11/18 16:34 Pulse Ox 92 08/11/18 16:34 ENMT Mouth: + edentulous; no TMJ abnormality and no TMJ clicking Thyromental Distance: > or= 3.5 Finger Breadths Mallampati Class: II Neck normal visual inspection; neck extension not limited Respiratory Auscultation: lungs clear to auscultation bilaterally Cardiovascular Rate/Rhythm: regular rate and regular rhythm Psychiatric Orientation: alert and oriented x 3 Testing Electrocardiogram Date: 01/16/18 Findings: + NSR @ (@ 74 bpm with sinus arrhythmia) Chest X-Ray Date: 08/11/18 FINDINGS: The right lung remains clear. No pneumothorax. Left chest wall subcutaneous emphysema has improved. Interval development of left mid to lower lung zone posterior density. This favors a large loculated pleural effusion. This measures approximately 20 x 10 cm. There is evidence for resection of the left anterior fourth rib. The heart is normal in size. Compressive atelectasis seen within the left lower lobe. IMPRESSION: Interval development of left mid to lower lung zone posterior density. This favors a large loculated pleural effusion. Pulmonary Function Test Date: 07/16/18 FINDINGS: Pre-bronchodilator spirometry demonstrates mild obstructive airways disease. FVC was 116% of predicted. FEV1 was 72% of predicted. [id number] was 25% of predicted. There was minimal change after inhaled bronchodilator. FVC improved 2%-119% of predicted. FEV1 improve 8%-78% of predicted. [id number] improved 7%-26% of predicted. IMPRESSION: Mild obstructive airways disease with minimal improvement after inhaled bronchodilator. These pulmonary function tests are consistent with the clinical diagnosis of chronic obstructive pulmonary disease. Laboratory Results 08/11/18 14:40 08/11/18 14:40 08/11/18 15:00 Gram Stain - Final Pleural Fluid
[2018-08-11] MEDS ORDERED: GLYCOPYRROLATE 0.2 MG/ML VIAL ONE (15:58)
[2018-08-11] MEDS ORDERED: NEOSTIGMINE METHYLSULFATE 5 MG/5 ML SYR ONE (15:58)
[2018-08-11] MEDS ORDERED: ONDANSETRON INJ 2 MG/ML 2 ML VIAL ONE (15:58)
[2018-08-11] MEDS ORDERED: LIDOCAINE HCL 2% 2 ML VIAL/AMP(20MG/ML) INFIL ONE (15:58)
[2018-08-11] MEDS ORDERED: ROCURONIUM BROMIDE 10 MG/ML 5 ML VIAL ONE (15:58)
[2018-08-11] MEDS ORDERED: DEXAMETHASONE SOD INJ 4 MG/ML VIAL ONE (15:58)
[2018-08-11] MEDS ORDERED: PROPOFOL IV EMULSION 10 MG/ML 20 ML VIAL IV ONE (15:58)
[2018-08-11] MEDS ORDERED: BUPIVACAINE 0.5 % 5 MG/1 ML MPF 30ML VIAL ONE (15:59)
[2018-08-11] MEDS ORDERED: fentaNYL citrate 100 MCG/2 ML VIAL ONE (15:59)
[2018-08-11] MEDS ORDERED: MIDAZOLAM HCL 1 MG/ML 2ML VIAL ONE (15:59)
[2018-08-11] MEDS ORDERED: BUPIVACAINE LIPOSOME 1.3% 266 MG/20 ML VIAL ONE (15:59)
[2018-08-11] MEDS ORDERED: SODIUM CHLORIDE 0.9% PF 50 ML VIAL ONE (15:59)
--- NOTE | 2018-08-11 15:59 | XRay Report ---
XR chest 1V portable CLINICAL HISTORY: 58 years-old Male presenting with thoracentesis. TECHNIQUE: Portable upright AP view of the chest was obtained. COMPARISON: 08/11/2018 at 11:52 AM. FINDINGS: The left heart border is obscured due to the presence of a moderate to large left pleural effusion. S light interval decreased size of the left pleural effusion status post thoracentesis. Slight improved aeration of the left upper lung though there is significant nonaeration of the mid to lower left shari g. The right lung and pleural spaces clear. Soft tissue emphysema along the left lateral chest wall. No pneumothorax allowing for portable technique. Fracture of the left anterolateral fourth rib. IMPRESSION: 1. Slight interval decreased size of the moderate to large left pleural effusion with slight improve d aeration of the left lung. No pneumothorax. 2. Acute anterolateral left fourth rib fracture. Electronically signed by: Amarjit Bustillos M.D. 08/11/2018 3:58 PM
--- NOTE | 2018-08-11 16:02 | History & Physical Report ---
Date of Service August 11, 2018 Assessment & Plan (1) Empyema of left pleural space: Thoracentesis. If the fluid has a low pH, I will take him to the operating room to drain the empyema and remove the patch. Present on Admission?: Yes History of Present Illness Primary Care Provider: Colleen Sanchez MD This is a 58-year-old male with a history of cigarette smoking who was found to have a mass growing from his left fourth rib. After workup we deemed him to be a surgical candidate on and on July 23, 2018 I performed a left robot- assisted thoracoscopic resection of this mass. We placed a nonabsorbable patch over this chest wall defect anteriorly. Surprisingly, the patient had an air leak following day. We did not appear that we injured the lung we did not see an air leak at the time of surgery. At any rate on postoperative day 3 the patient was very eager to be discharged. I sent him home with a Heimlich valve. 9 days later I saw him back in the office. Because of the there is been cancellations of the head patient came back and I was quite pleased with how it all looked in the catheter was no longer leaking air. I removed the chest tube. I made arrangements to see him back in the office. Patient called today and stated that he felt poorly. He also had "swelling" in his chest. I asked him to come in after an x-ray which showed a large effusion. I immediately admitted him to the hospital. Quite concerned he may have a empyema as there is erythema over the anterior aspect of his chest where the patches. Should be noted that this patient does not have an incision over this as we resected the mass and repaired with mesh intra-thoracically. Allergies Allergy/AdvReac Type Severity Reaction Status Date / Time No Known Allergies Allergy Verified 07/11/18 08:02 Home Medications Home Medications Medication Instructions Recorded Confirmed Type Spiriva Respimat 2 puff INHALATION BID 07/11/18 08/11/18 History albuterol sulfate [ProAir HFA] 1 - 2 puff INHALATION Q6H PRN 07/11/18 08/11/18 History loratadine 10 mg PO QAM 07/11/18 08/11/18 History Advil 200 mg PO DAILY 08/11/18 08/11/18 History Past Med/Surg History Medical History Chest wall mass Chronic obstructive pulmonary disease Surgical History History of nasal cauterization Social History Preferred Language: Tunisian Communication Ability: Effective Radio Interference Investigator Required: No Beliefs That Will Affect Care: None marital status: Single Current Living Situation: Family Current Living Situation Comment: LIVES WITH MOTHER Other Information That Helps Us Care for You: No Feels Safe at Home: Yes Safety Concerns: Feels Safe At This Time Smoking Status: Current every day smoker Hx Alcohol Use: Yes Hx Substance Use: No Review of Systems All systems reviewed & are unremarkable except as noted in HPI & below Patient states he has had no appetite for the last several days. He is been drinking fluids. He said nothing to eat or drink today. He states that the last 24-48 hours his breathing is become worse. He denies fevers or chills. He had no nausea or vomiting. He has had increasing pain in his left chest. Physical Exam Vital Signs (Past 24 Hours): Last Vital Signs Temp 36.4 C L 08/11/18 13:30 Pulse 106 H 08/11/18 13:30 Resp 18 08/11/18 13:30 BP 132/89 08/11/18 13:30 Pulse Ox 94 08/11/18 13:30 Physical Exam: He is awake and alert. Extra commands are intact. His mucous membranes are fairly dry. He has no neck vein distention. He has decreased breath sounds on the left. All of his incisions of healed quite nicely. He has a regular rate and rhythm of his heart at about 100 bpm. His abdomen soft nontender. He does have some fluctuance over his left anterior chest. There is some mild erythema. He has no peripheral edema. He has good peripheral pulses. Neurologically is completely intact.
[2018-08-11] MEDS: DICLOFENAC SOD 1% GEL 100 GM TUBE EXT SCH (16:19)
[2018-08-11] MEDS ORDERED: SODIUM CHLORIDE 0.9% 1000ML 1,000 ML IV ONE (16:41)
--- NOTE | 2018-08-11 17:00 | Consultation ---
Date of Consultation August 11, 2018 Assessment & Plan (1) Empyema of left pleural space: - Surgical management per primary team - Zosyn and Vancomycin - H/O L 4th Rib mass removed on Jul 23 with patching; ultimately had air leak and Heimlich valve which was then removed; now presenting with increasing L pleural effusion and underwent thoracentesis today which likely supports empyema Present on Admission?: Yes (2) Hyponatremia: - Found incidentally on pre-operative labs; no home meds as culprit - Reports increasing fluid intake however not taking in food adequately - so maybe some poor intake/dilution from increase fluids - Repeat BMP now with serum osm/urine osm/urine Na and TSH - Can continue LR at 125 mL/hr and will repeat BMP Q4H until stabilized - if worsening with fluid intake with ultimately restrict intake as SIADH is possible - Has a mild headache but no other symptoms of low Na - did have a reading of 129 in January but most recent from Jul was 135 Present on Admission?: Yes (3) COPD (chronic obstructive pulmonary disease): - No evidence of acute exacerbation at this time - Continue Albuterol PRN; Loratadine 10 mg daily; Tiotropium bromide daily Present on Admission?: Yes Supervising Physician Co-Signing Physician Notes FAHAD Supervision Note: I personally saw and examined the patient. I verified all casey points and agree with FAHAD Mccrary with the following exceptions and/or additions: Patient here with left-sided empyema and hospitalist service was asked to consult for his hyponatremia. He has been drinking several gallons of free water and very minimal p.o. intake over the last few days as he was feeling unwell with his empyema. His urine sodium is quite low at 7 and his urine osmolality is in the 700s. He appears euvolemic but may have been a little hypovolemic prior to our evaluation given his illness. Therefore, urine studies may be consistent with a combination of polydipsia along with the "Tea and toast diet" as well as some component of hypovolemic hyponatremia Vitals reviewed NAD, AAO x3 RRR, no murmurs rubs gallops Lungs with diminished breath sounds in the left lower and middle lung white with rhonchi in the left upper lung field, no wheezing Extremities-no edema 58-year-old male here with left-sided empyema and hyponatremia Switch LR to normal saline and give another 1 L of normal saline at 180 mL's per hour as sodium has slightly improved but has stabilized at 128-he likely needs increased sodium intake -Follow BMP in the morning, however with a sodium of 128, he is already improved and could undergo surgery if okay with anesthesia History of Present Illness Reason for Consultation: Hyponatremia Requesting Physician: Dr. Veloz Attending Physician: Brant Veloz MD, [facility] History of Present Illness Mr. Pineda is a 58 y/o male with PMHx of Emphysema who presents as a direct admission from Dr. Veloz's office for possible empyema. Pt underwent a L rib mass removal on 07/23/18 which pathology supports a osteochondroma. He had a patch placed over this defect. He had an air leak and had a Heimlich valve placed which was ultimately removed several days later. However today patient reports feeling ill. He noticed increased edema in the anterior L chest and a cough. XR shows a large L pleural effusion. He was directly admitted by Dr. Veloz and underwent thoracentesis for approx. 700 cc and suspicion of empyema. On pre-operative labs he was found to be hyponatremic at 126. He denies having issues with hyponatremia in the past. He reports taking in more fluids than he normally does (several gallons of water the last few days) and reports a reduced appetite in regards to food. He is not on any medications that would likely contribute to hyponatremia. Allergies Allergy/AdvReac Type Severity Reaction Status Date / Time No Known Allergies Allergy Verified 07/11/18 08:02 Home Medications Home Medications Medication Instructions Recorded Confirmed Type Spiriva Respimat 2 puff INHALATION BID 07/11/18 08/11/18 History albuterol sulfate [ProAir HFA] 1 - 2 puff INHALATION Q6H PRN 07/11/18 08/11/18 History loratadine 10 mg PO QAM 07/11/18 08/11/18 History Advil 200 mg PO DAILY 08/11/18 08/11/18 History Patient History Medical History Chest wall mass Chronic obstructive pulmonary disease No h/o prior hospitalization or intubation due to COPD. No home O2 Surgical History S/P robot-assisted surgical procedure S/p Left robot assisted VATS on 07/23/18. Mac 3 with gr 1 view with IVCENTE without issues History of nasal cauterization Family History Other Family history non-contributory Social History Preferred Language: Urdu Communication Ability: Effective Pourer Off Required: No Beliefs That Will Affect Care: None marital status: Single Current Living Situation: Family Current Living Situation Comment: LIVES WITH MOTHER Other Information That Helps Us Care for You: No Feels Safe at Home: Yes Safety Concerns: Feels Safe At This Time Smoking Status: Current every day smoker (2-5 cigs/day. Used to smoke 2ppd x 30 years) Hx Alcohol Use: Yes Hx Substance Use: No Review of Systems Constitutional: + fatigue and + anorexia; no fever and no chills Eyes: no worsening vision Ear, Nose, Mouth, Throat: no nasal congestion, no sore throat and no dysphagia Respiratory: + cough and + sputum production; no dyspnea Cardiovascular: + chest pain (at tap site - mild); no palpitations and no edema Gastrointestinal: no abdominal pain, no nausea, no vomiting, no constipation and no diarrhea/loose stools Genitourinary (Male): no dysuria Musculoskeletal: + swelling (L upper chest) Integumentary: + rash (mild erythema of L upper chest which is warm to touch; new thoracentesis site without erythema; healing incisions from previous chest tubes/procedures) Physical Exam Vital Signs (Past 24 Hours): Last Vital Signs Temp 37.0 C 08/11/18 16:34 Pulse 98 H 08/11/18 16:34 Resp 18 08/11/18 16:34 BP 137/76 08/11/18 16:34 Pulse Ox 92 08/11/18 16:34 Constitutional: well developed, well nourished and + thin; no acute distress and not ill appearing Eyes: + anicteric sclerae ENMT: Ears: no hearing impairment Neck: trachea midline Respiratory: normal respiratory effort Auscultation: + diminished lung sounds (L base to mid lung) Cardiovascular: Rate/Rhythm: regular rate and regular rhythm Heart Sounds: no murmur Chest (Breasts): Additional Comments: L upper thoracentesis site with dressing C/D/I without surrounding erythema; healing incisions from previous chest tube/VATs without erythema; mild erythema and edema of upper L chest Gastrointestinal (Abdomen): Inspection/Auscultation: normal bowel sounds Percussion/Palpation: abdomen soft; abdomen nontender Musculoskeletal: large quarter-sized raised mass that feels soft and mobile - possible lipoma Skin: no rashes, warm and dry (other than described in chest) Neurologic: moves all extremities Psychiatric: A+Ox3, euthymic affect Results & Data Laboratory Results 08/11/18 08/11/18 08/11/18 Range/Units 21:09 17:28 17:28 WBC (4.8-10.8) K/uL RBC (4.7-6.1) M/uL Hgb (14.0-18.0) g/dL Hct (42-52) % MCV (80-100) fL MCH (25-34) pg MCHC (32-36) g/dL RDW Std Deviation (36.4-46.3) fL RDW Coeff of Genevieve (11.5-14.5) % Plt Count (130-400) K/uL MPV (7.4-10.4) fL Immature Gran % (Auto) % Neut % (Auto) % Lymph % (Auto) % Falls % (Auto) % Eos % (Auto) % Baso % (Auto) % Immature Gran # (Auto) (0.00-0.02) K/uL Neut # (Auto) (1.4-6.5) K/uL Lymph # (Auto) (1.2-3.4) K/uL Falls # (Auto) (0.11-0.59) K/uL Eos # (Auto) (0-0.5) K/uL Baso # (Auto) (0-0.2) K/uL Toxic Granulation Sodium 128 L (136-145) mmol/L Potassium 4.1 (3.5-5.1) mmol/L Chloride 94 L (98-107) mmol/L Carbon Dioxide 24 (21-32) mmol/L Anion Gap 10.0 (3-11) BUN 15 (7-18) mg/dl Creatinine 0.73 (0.6-1.4) mg/dl Est Cr Clr Drug Dosing 117.5 ml/min Est GFR ( Amer) 118.5 Est GFR (Non-Af Amer) 102.2 BUN/Creatinine Ratio 21.1 H (10-20) Glucose 117 H (70-99) mg/dl Osmolality (280-300) mOsm/kg Calcium 8.1 L (8.5-10.1) mg/dl Phosphorus (2.5-4.9) mg/dl Albumin (3.4-5.0) gm/dl TSH (0.300-4.500) uIu/ml Urine Osmolality 719 (500-800) mOsm/kg Ur Random Sodium 7 mmol/L Fluid Slide Review Pleural Fluid Source Pleural Color Pleural Appearance Pleural WBC /uL Pleural RBC /uL Pleural Polynuclear % % Pleural Mononuclear % % Pleural Total Protein g/dl Pleural LDH U/L Pleural Glucose mg/dl 08/11/18 08/11/18 08/11/18 Range/Units 16:57 16:57 16:57 WBC (4.8-10.8) K/uL RBC (4.7-6.1) M/uL Hgb (14.0-18.0) g/dL Hct (42-52) % MCV (80-100) fL MCH (25-34) pg MCHC (32-36) g/dL RDW Std Deviation (36.4-46.3) fL RDW Coeff of Genevieve (11.5-14.5) % Plt Count (130-400) K/uL MPV (7.4-10.4) fL Immature Gran % (Auto) % Neut % (Auto) % Lymph % (Auto) % Falls % (Auto) % Eos % (Auto) % Baso % (Auto) % Immature Gran # (Auto) (0.00-0.02) K/uL Neut # (Auto) (1.4-6.5) K/uL Lymph # (Auto) (1.2-3.4) K/uL Falls # (Auto) (0.11-0.59) K/uL Eos # (Auto) (0-0.5) K/uL Baso # (Auto) (0-0.2) K/uL Toxic Granulation Sodium 128 L (136-145) mmol/L Potassium 4.4 (3.5-5.1) mmol/L Chloride 92 L (98-107) mmol/L Carbon Dioxide 26 (21-32) mmol/L Anion Gap 10.0 (3-11) BUN 16 (7-18) mg/dl Creatinine 0.80 (0.6-1.4) mg/dl Est Cr Clr Drug Dosing 107.2 ml/min Est GFR ( Amer) 114.1 Est GFR (Non-Af Amer) 98.5 BUN/Creatinine Ratio 19.9 (10-20) Glucose 117 H (70-99) mg/dl Osmolality 267 L (280-300) mOsm/kg Calcium 8.4 L (8.5-10.1) mg/dl Phosphorus (2.5-4.9) mg/dl Albumin (3.4-5.0) gm/dl TSH 0.669 (0.300-4.500) uIu/ml Urine Osmolality (500-800) mOsm/kg Ur Random Sodium mmol/L Fluid Slide Review Pleural Fluid Source Pleural Color Pleural Appearance Pleural WBC /uL Pleural RBC /uL Pleural Polynuclear % % Pleural Mononuclear % % Pleural Total Protein g/dl Pleural LDH U/L Pleural Glucose mg/dl 08/11/18 08/11/18 08/11/18 Range/Units 15:00 14:40 14:40 WBC (4.8-10.8) K/uL RBC (4.7-6.1) M/uL Hgb (14.0-18.0) g/dL Hct (42-52) % MCV (80-100) fL MCH (25-34) pg MCHC (32-36) g/dL RDW Std Deviation (36.4-46.3) fL RDW Coeff of Genevieve (11.5-14.5) % Plt Count (130-400) K/uL MPV (7.4-10.4) fL Immature Gran % (Auto) % Neut % (Auto) % Lymph % (Auto) % Falls % (Auto) % Eos % (Auto) % Baso % (Auto) % Immature Gran # (Auto) (0.00-0.02) K/uL Neut # (Auto) (1.4-6.5) K/uL Lymph # (Auto) (1.2-3.4) K/uL Falls # (Auto) (0.11-0.59) K/uL Eos # (Auto) (0-0.5) K/uL Baso # (Auto) (0-0.2) K/uL Toxic Granulation Sodium 126 L (136-145) mmol/L Potassium 4.1 (3.5-5.1) mmol/L Chloride 91 L (98-107) mmol/L Carbon Dioxide 24 (21-32) mmol/L Anion Gap 11.0 (3-11) BUN 17 (7-18) mg/dl Creatinine Cancelled 0.76 (0.6-1.4) mg/dl Est Cr Clr Drug Dosing Cancelled 112.8 ml/min Est GFR ( Amer) Cancelled 116.6 Est GFR (Non-Af Amer) Cancelled 100.6 BUN/Creatinine Ratio 22.1 H (10-20) Glucose 114 H (70-99) mg/dl Osmolality (280-300) mOsm/kg Calcium 8.3 L (8.5-10.1) mg/dl Phosphorus 4.2 (2.5-4.9) mg/dl Albumin 2.2 L (3.4-5.0) gm/dl TSH (0.300-4.500) uIu/ml Urine Osmolality (500-800) mOsm/kg Ur Random Sodium mmol/L Fluid Slide Review Pending Pleural Fluid Source LEFT LUNG Pleural Color RED Pleural Appearance BLOODY Pleural WBC 595647 /uL Pleural RBC 909811 /uL Pleural Polynuclear % 96.2 % Pleural Mononuclear % 3.8 % Pleural Total Protein g/dl Pleural LDH U/L Pleural Glucose mg/dl 08/11/18 Range/Units 14:40 WBC 13.75 H (4.8-10.8) K/uL RBC 3.84 L (4.7-6.1) M/uL Hgb 12.5 L (14.0-18.0) g/dL Hct 35.8 L (42-52) % MCV 93.2 (80-100) fL MCH 32.6 (25-34) pg MCHC 34.9 (32-36) g/dL RDW Std Deviation 44.7 (36.4-46.3) fL RDW Coeff of Genevieve 13.2 (11.5-14.5) % Plt Count 499 H (130-400) K/uL MPV 9.4 (7.4-10.4) fL Immature Gran % (Auto) 1.3 % Neut % (Auto) 66.8 % Lymph % (Auto) 10.8 % Falls % (Auto) 17.9 % Eos % (Auto) 2.8 % Baso % (Auto) 0.4 % Immature Gran # (Auto) 0.18 H (0.00-0.02) K/uL Neut # (Auto) 9.20 H (1.4-6.5) K/uL Lymph # (Auto) 1.48 (1.2-3.4) K/uL Falls # (Auto) 2.46 H (0.11-0.59) K/uL Eos # (Auto) 0.38 (0-0.5) K/uL Baso # (Auto) 0.05 (0-0.2) K/uL Toxic Granulation 1+ Sodium (136-145) mmol/L Potassium (3.5-5.1) mmol/L Chloride (98-107) mmol/L Carbon Dioxide (21-32) mmol/L Anion Gap (3-11) BUN (7-18) mg/dl Creatinine (0.6-1.4) mg/dl Est Cr Clr Drug Dosing ml/min Est GFR ( Amer) Est GFR (Non-Af Amer) BUN/Creatinine Ratio (10-20) Glucose (70-99) mg/dl Osmolality (280-300) mOsm/kg Calcium (8.5-10.1) mg/dl Phosphorus (2.5-4.9) mg/dl Albumin (3.4-5.0) gm/dl TSH (0.300-4.500) uIu/ml Urine Osmolality (500-800) mOsm/kg Ur Random Sodium mmol/L Fluid Slide Review Pleural Fluid Source Pleural Color Pleural Appearance Pleural WBC /uL Pleural RBC /uL Pleural Polynuclear % % Pleural Mononuclear % % Pleural Total Protein g/dl Pleural LDH U/L Pleural Glucose mg/dl
[2018-08-11 17:16] LABS: Appearance Pleural Fluid BLOODY; Color Pleural Fluid RED; Mononuclear WBC Pleural 3.8 %; RBC Pleural Fluid (A) 445000 /uL; Source Pleural Fluid LEFT LUNG; WBC Pleural Fluid (A) 144100 /uL
--- NOTE | 2018-08-11 17:48 | Progress Note ---
DATE: 08/11/2018 The patient was scheduled for the operating room tonight to drain an empyema. I performed a thoracentesis and removed about 700 mL of serous bloody fluid with a low pH. Unfortunately, his sodium is 126. For this reason, I have pushed him off into early tomorrow morning. I have asked Dr. Avis Carlson to evaluate him for correcting his sodium. I discussed this with Anesthesia and we would like to get the sodium up to at least 128 - 130 before proceeding. NOLVIAD
[2018-08-11 17:49] LABS: BUN Creatinine Ratio 19.9 (10-20); Calcium 8.4 mg/dl (8.5-10.1); Creatinine Clr Calc Pharmacy 107.2 ml/min; Est GFR (African American) 114.1; Est GFR (Non-African American) 98.5; Potassium 4.4 mmol/L (3.5-5.1)
[2018-08-11] MEDS: LACTATED RINGER'S 1,000 ML IV SCH (19:03)
[2018-08-11] MEDS: ENOXAPARIN INJ 40 MG/0.4 ML SYR SQ SCH (19:03)
[2018-08-11 20:37] LABS: Polynuclear WBC Pleural 96.2 %
--- NOTE | 2018-08-11 20:55 | Operative Report ---
DATE OF OPERATION: 08/11/2018 PREOPERATIVE DIAGNOSIS: Postoperative pleural effusion. POSTOPERATIVE DIAGNOSIS: Postoperative empyema. PROCEDURE: Ultrasound-guided thoracentesis. SURGEON: Brant Veloz MD ANESTHESIA: Local. SPECIFICS OF PROCEDURE: The patient is a 58-year-old and I excised a benign bone tumor from his left 4th rib. We were concerned about an osteosarcoma but it turns out this is a benign lesion. We did this robotically and I did place a patch over this defect. He did have an air leak after surgery, went home on postop day 3 with a Heimlich valve, and then returned to the office where I removed it. He states over the last several days, he has felt very poorly and he is having more pain. I saw him in the office today, I was quite concerned about him. Admitted him directly to the hospital and then came up to the floor where I offered him a thoracentesis under ultrasound guidance. I had a long talk with the patient and his family. I drained about 700 mL of a sero-bloody fluid and the pH was 6.6. He tolerated it well. X-ray showed no pneumothorax with some decrease in the amount of fluid. DESCRIPTION OF PROCEDURE: The patient sat up at the side of the bed in room 379. Ultrasound showed there to be complex fluid, but there did appear to be a window. At approximately the fifth interspace in the posterior axillary line, I raised a skin wheal. This was done with a 25-gauge needle after he had been properly anesthetized and a timeout had been called. A large bore needle was then used to anesthetize the deeper subcutaneous tissues and enter the pleural cavity where some sero-bloody fluid was drained. A guidewire was inserted and needle removed. A triple lumen catheter was then slid over the guidewire into this and we drained about 700 mL of a sero-bloody fluid. The pH was checked with the i-STAT and seemed to be about 6.6. When we could drain no more fluid, I removed the catheter. He had no bleeding. An x-ray showed no evidence of pneumothorax. As this is an empyema, we will be taking him to the operating room. He did tolerate this well. We placed the antimicrobial dressing on the puncture site. I attest to the content of the Intraoperative Record and any orders documented therein. Any exception s are noted below.
[2018-08-11 21:42] LABS: BUN Creatinine Ratio 21.1 (10-20); Calcium 8.1 mg/dl (8.5-10.1); Creatinine Clr Calc Pharmacy 117.5 ml/min; Est GFR (African American) 118.5; Est GFR (Non-African American) 102.2; Potassium 4.1 mmol/L (3.5-5.1)
[2018-08-11] MEDS: PIPERACILLIN/TAZOBACTAM 3.375 GM in DEXTROSE 5% 100 ML IV SCH (21:51)
[2018-08-11] MEDS: HYDROCODONE/ACETAMOPHEN 5/325MG TAB PO PRN (21:56)
[2018-08-11] MEDS ORDERED: SODIUM CHLORIDE 0.9% 1000ML 1,000 ML IV SCH (23:00)
[2018-08-11] MEDS: VANCOMYCIN HCL 1,000 MG in SODIUM CHLORIDE 0.9% 250 ML IV SCH (23:35)
[2018-08-11] MEDS ORDERED: MoRPHine SULFATE 4 MG/ML 1 ML CARP\\VIAL ONE (23:39)
[2018-08-11] MEDS: MoRPHine SULFATE 2 MG/ML CARP IV PRN (23:43)
[2018-08-12] MEDS: PIPERACILLIN/TAZOBACTAM 3.375 GM in DEXTROSE 5% 100 ML IV SCH ×3 (05:55→22:47)
[2018-08-12] MEDS ORDERED: BUPIVACAINE 0.5 % 5 MG/1 ML MPF 30ML VIAL ONE (06:52)
[2018-08-12] MEDS ORDERED: SODIUM CHLORIDE 0.9% PF 50 ML VIAL ONE (06:52)
[2018-08-12] MEDS ORDERED: BUPIVACAINE LIPOSOME 1.3% 266 MG/20 ML VIAL ONE (06:53)
[2018-08-12 06:54] LABS: Hematocrit (blood only) 31.7 % (42-52); Hemoglobin 11.1 g/dL (14.0-18.0); Mean Corpuscular Volume 93.5 fL (80-100); Platelet Count 444 K/uL (130-400); RDW Coefficient of Variation 13.2 % (11.5-14.5); RDW Standard Deviation 45.6 fL (36.4-46.3); Red Blood Count 3.39 M/uL (4.7-6.1); White Blood Count 10.78 K/uL (4.8-10.8)
[2018-08-12] MEDS ORDERED: fentaNYL citrate 100 MCG/2 ML VIAL ONE (07:11)
[2018-08-12] MEDS ORDERED: MIDAZOLAM HCL 1 MG/ML 2ML VIAL ONE (07:11)
[2018-08-12 07:21] LABS: BUN Creatinine Ratio 21.9 (10-20); Calcium 7.9 mg/dl (8.5-10.1); Creatinine Clr Calc Pharmacy 129.9 ml/min; Est GFR (African American) 123.5; Est GFR (Non-African American) 106.6; Potassium 3.9 mmol/L (3.5-5.1)
--- NOTE | 2018-08-12 07:25 | History & Physical Bridge Note ---
Date of Service August 12, 2018 History & Physical Bridge Note I have examined the patient, reviewed the History & Physical and in the interval since the performance of the History & Physical I have noted the following changes of clinical significance: no changes noted
[2018-08-12] MEDS ORDERED: fentaNYL citrate 100 MCG/2 ML VIAL IV PRN (07:34)
[2018-08-12] MEDS ORDERED: ATROPINE SULFATE 0.1 MG/ML 10ML SYR IV PRN (07:34)
[2018-08-12] MEDS ORDERED: ePHEDrine sulfate 50 MG/ML AMP IV PRN (07:34)
[2018-08-12] MEDS ORDERED: PROMETHAZINE HCL 6.25 MG in SODIUM CHLORIDE 0.9% 50 ML IV PRN (07:34)
[2018-08-12] MEDS ORDERED: ONDANSETRON INJ 2 MG/ML 2 ML VIAL IV PRN (07:34)
[2018-08-12] MEDS: DICLOFENAC SOD 1% GEL 100 GM TUBE EXT SCH ×4 (08:00→16:47)
[2018-08-12] MEDS ORDERED: ROCURONIUM BROMIDE 10 MG/ML 5 ML VIAL ONE (08:08)
[2018-08-12] MEDS ORDERED: ePHEDrine sulfate 50 MG/ML SYR ONE (08:09)
[2018-08-12] MEDS ORDERED: LARYING-O-JET KIT (LTA) ONE (08:09)
[2018-08-12] MEDS ORDERED: PHENYLEPHRINE 100MCG/ML 5ML SYR ONE (08:09)
--- NOTE | 2018-08-12 09:56 | Post Operative Brief Note ---
Immediate Post Op Note v1 Date of Surgery August 12, 2018 Pre & Post Diagnosis Operation Date: 08/11/18 15:10 <No data on this case meets the specified criteria> Operation Date: 08/12/18 07:15 Pre-Op Diagnosis: Empyema, Left Post-Op Diagnosis: Empyema, Left Procedure Operation Date: 08/11/18 15:10 <No data on this case meets the specified criteria> Operation Date: 08/12/18 07:15 Actual Procedures p Video Assisted Left Thoracoscopy with Decortication, Evacuation of Empyema, Removal of Infected Patch, Placement of [place] Chest Tube and PleurX Catheter(Left) - Brant Veloz MD, FACS Surgeon Brant Veloz MD, FACS Marketing Strategy [employer] Estimated Blood Loss 50 Findings Consistent with Post-Op Diagnosis Drains Chest Tube and PleurX Catheter
--- NOTE | 2018-08-12 10:16 | XRay Report ---
XR chest 1V portable CLINICAL HISTORY: s/p VATS postoperative COMPARISON STUDY: 08/11/2017 FINDINGS: Interval placement of a left-sided drainage catheter. Considerable decrease in volume of a left effusion. Mild increase in density throughout the left hemithorax compared to the right. No evid ence for pneumothorax. IMPRESSION: Considerable improvement in aeration left hemithorax post left-sided chest tube placemen t and VATS procedure . No evidence for postprocedural pneumothorax. The above report was generated using voice recognition software. It may contain grammatical, syntax or spelling errors. Electronically signed by: Aric Joiner M.D. 08/12/2018 10:14 AM
--- NOTE | 2018-08-12 10:48 | Anesthesiology Progress Note ---
Date of Service August 12, 2018 Anesthesia Post Procedure Vital Signs Vital Signs: Temp Pulse Pulse Resp BP Pulse Ox 08/12/18 10:40 92 H 20 95/65 L 96 08/12/18 10:30 36.6 C 88 16 110/79 97 08/12/18 10:20 90 19 105/73 94 08/12/18 10:10 89 19 119/76 98 08/12/18 10:00 88 23 111/73 97 08/12/18 09:53 36.8 C 77 20 120/96 96 08/12/18 07:21 36.7 C 90 22 121/79 98 08/12/18 06:58 37.1 C 92 H 20 105/71 93 08/11/18 23:12 37.1 C 97 H 16 99/62 L 92 08/11/18 16:34 37.0 C 98 H 18 137/76 92 08/11/18 13:30 36.4 C L 106 H 18 132/89 94 Pain Intensity Left Ribs: Pain Intensity: 7 Notes Mental Status: alert / awake / arousable Patient Amnestic to Procedure: Yes Nausea / Vomiting: adequately controlled Pain: adequately controlled Airway Patency, RR, SpO2: stable & adequate BP & HR: stable & adequate Hydration State: stable & adequate Anesthetic Complications: no major complications apparent
--- NOTE | 2018-08-12 11:25 | Operative Report ---
DATE OF OPERATION: 08/12/2018 PREOPERATIVE DIAGNOSES: 1. Left pleural empyema. 2. Status post robot-assisted thoracoscopic excision of left 4th rib for benign osteochondroma. POSTOPERATIVE DIAGNOSES: 1. Left pleural empyema. 2. Status post robot-assisted thoracoscopic excision of left 4th rib for benign osteochondroma. PROCEDURE: 1. Left thoracoscopy with evacuation of empyema. 2. Excision of infected patch. 3. Decortication left lower lobe. SURGEON: Dr. Veloz. GRADES 1 THRU 6 HOME TEACHER: oJon Saeed PA-C. ANESTHESIA: General anesthesia with single lumen intubation. INDICATION FOR PROCEDURE AND FINDINGS: The patient is a 58-year-old male who is a smoker, who was found to have a mass growing from his right rib, which was remarkable on CT. He also had some pain with this. At this point, we felt that this should be excised after presenting her at our Multidisciplinary Cancer Conference. On 07/23/2018, I performed a left robot-assisted thoracoscopic resection of this mass and placed a nonabsorbable mesh over the chest wall defect. The patient had an air leak, went home with Gautam. We took it out and he looked quite good in the office about 10 days ago; however, he presented back and certainly appeared to have an infection. He had more pain, more shortness of breath and he had a large amount of fluid in his chest. I immediately admitted him to the hospital, gave him antibiotics and then did a thoracentesis and drained 700 mL of a serous bloody fluid, which had Gram positive cocci and Gram stain. I prepared to take him to the Operating Room last night right after he had been admitted; however, his sodium is 126. Anesthesia felt we should correct this prior to taking him to the Operating Room. This morning on 08/12/2018, I took the patient to the Operating Room and performed a left thoracoscopy without difficulty. He did have an empyema. I removed a good 1500 mL of sero-bloody fluid and removed debris. I then removed the patch which was rather attached to the left upper lobe, but we finally got it off. I removed this in toto. I then did a decortication of left lower lobe, which was not too difficult. He tolerated it quite well, was actually improved at the end of the surgery. I did do an Exparel block. DESCRIPTION OF PROCEDURE: The patient was brought to the Operating Room and laid in supine position. General anesthesia induced. Endotracheal intubation was performed. After prepping and draping in usual sterile fashion and turning the patient in right lateral decubitus position, a timeout was called. After appropriate antibiotics have been given, I made an incision posteriorly just at the tip of the scapular tip of the posterior for a 5 mm port. I immediately got sero-bloody fluid back and I placed a sucker and drained about a liter of fluid. I then placed another 5 mm port anteriorly and then placed about a 12 mm port in the mid axillary line, more inferiorly. Through these 3 ports, we then worked him. I suctioned out a total of about 1500 mL of sero-bloody fluid and then removed a large amount of debris, which I was able to remove with a forceps. I then irrigated out the entire chest. We felt the patch nicely and it was attached to the left upper lobe and we gently took this down bluntly and sharply. I then cut all the Prolene sutures, removed the patch and the Prolene sutures. After removing all the fibrinous debris meticulously, I then did a decortication by removing a fibrinous peel from the left lower lobe. This expanded nicely at the end of the case. A 266 mg of Exparel mixed with 250 mL of normal saline and 30 mL of 0.25% bupivacaine. This was used to do an intercostal block from the 2nd to the 11th rib intrathoracically. I did use an Aquamantys to make sure we had good bleeding control of the chest wall. A 24-Georgian chest tube was then placed through the anterior thoracoscopy port towards the apex, sutured in place with heavy silk suture. A PleurX catheter was then placed through a separate stab wound anteriorly and laid along the diaphragmatic gutter posteriorly. Sutured in place with silk suture. A 0 Polysorb was used to close the muscle layers of the larger 12 mm port site. A 4-0 Monocryl was used in running subcuticular fashion to approximate the wound edge. The patient was extubated in the room. He tolerated it well with negligible blood loss. I attest to the content of the Intraoperative Record and any orders documented therein. Any exceptions are noted below. SHAMA
[2018-08-12] MEDS: TIOTROPIUM BROMIDE 5 PUFF/90 MCG INH INH SCH (11:42)
[2018-08-12] MEDS: LORATADINE 10 MG TAB PO SCH (11:42)
[2018-08-12] MEDS: LACTATED RINGER'S 1,000 ML IV SCH (11:50)
[2018-08-12] MEDS: VANCOMYCIN HCL 1,000 MG in SODIUM CHLORIDE 0.9% 250 ML IV SCH ×2 (12:09→20:27)
--- NOTE | 2018-08-12 12:11 | Hospitalist Progress Note ---
Date of Service August 12, 2018 Assessment & Plan (1) Empyema of left pleural space: - Surgical management per primary team - Zosyn and Vancomycin - Cx with staph aureus and awaiting sensitivities covering for MRSA until proven otherwise - H/O L 4th Rib mass removed on Jul 23 with patching; ultimately had air leak and Heimlich valve which was then removed; now presenting with increasing L pleural effusion and underwent thoracentesis on 08/11 and underwent clean-out today with VATS (2) Hyponatremia: - Found incidentally on pre-operative labs; no home meds as culprit - Reports increasing fluid intake however not taking in food adequately - so maybe some poor intake/dilution from increase fluids - TSH WNL; some conflicting findings with osms - currently at 130 and will monitor now off fluids (3) COPD (chronic obstructive pulmonary disease): - No evidence of acute exacerbation at this time - Continue Albuterol PRN; Loratadine 10 mg daily; Tiotropium bromide daily - Will add Duonebs TYLER as he does have rhonchi now but did not hear wheezing but may help open airways Supervising Physician Co-Signing Physician Notes PA Supervision Note: I did not personally see or examine the patient today, but I verified all casey points of FAHAD Mccrary's assessment and plan with the following exceptions/additions: Na+ trended back down again this afternoon to 128--> start NaCl tabs 1 gm po bid, fluid restrict to 1500mL daily Follow BMP Subjective Patient reports doing okay but having increased pain today. Currently has a chest tube placed with some blood serosang drainage. He feels like he has a lot of congestion in the chest. He does have rhonchi throughout. Na improved to 130 and he notes he continues to take in significant oral fluids. Constitutional: + fatigue and + anorexia; no fever and no chills Eyes: no worsening vision Ear, Nose, Mouth, Throat: + hoarseness; no sore throat Respiratory: + cough and + sputum production; no dyspnea Cardiovascular: + chest pain (Site of chest tube); no palpitations and no edema Gastrointestinal: no abdominal pain, no nausea, no vomiting, no constipation and no diarrhea/loose stools Genitourinary (Male): no dysuria Physical Exam Vital Signs (Past 24 Hours): Last Vital Signs Temp 36.6 C 08/12/18 11:30 Pulse 89 08/12/18 11:30 Resp 16 08/12/18 11:30 BP 118/79 08/12/18 11:30 Pulse Ox 92 08/12/18 11:30 Constitutional: well developed, well nourished and + thin; no acute distress and not ill appearing Eyes: + anicteric sclerae ENMT: Ears: no hearing impairment Neck: trachea midline Respiratory: normal respiratory effort Auscultation: + rhonchi (diffuse with some improved aeration compared to yesterday's exam) Cardiovascular: Rate/Rhythm: regular rate and regular rhythm Heart Sounds: no murmur Chest (Breasts): Additional Comments: Chest tube present with dressing C/D/I to L anterior axillary line Gastrointestinal (Abdomen): Inspection/Auscultation: normal bowel sounds Percussion/Palpation: abdomen soft; abdomen nontender Skin: no rashes, warm and dry (other than described in chest) Neurologic: moves all extremities Psychiatric: A+Ox3, euthymic affect
[2018-08-12 15:37] LABS: Hematocrit (blood only) 34.6 % (42-52); Hemoglobin 11.8 g/dL (14.0-18.0); Mean Corpuscular Hgb Conc 34.1 g/dL (32-36); Mean Corpuscular Volume 95.3 fL (80-100); Mean Platelet Volume 9.3 fL (7.4-10.4); Platelet Count 475 K/uL (130-400); RDW Coefficient of Variation 13.4 % (11.5-14.5); RDW Standard Deviation 47.3 fL (36.4-46.3); Red Blood Count 3.63 M/uL (4.7-6.1); White Blood Count 14.06 K/uL (4.8-10.8)
[2018-08-12 15:45] LABS: Albumin Level 1.6 gm/dl (3.4-5.0); BUN Creatinine Ratio 18.7 (10-20); Calcium 7.2 mg/dl (8.5-10.1); Creatinine Clr Calc Pharmacy 114.3 ml/min; Est GFR (African American) 117.2; Est GFR (Non-African American) 101.1; Phosphorus 4.2 mg/dl (2.5-4.9); Potassium 4.3 mmol/L (3.5-5.1)
[2018-08-12] MEDS: ALBUT/IPRATROP 3MG/0.5MG NEB 3 ML VIAL NEB SCH ×2 (15:53→20:01)
[2018-08-12 16:14] LABS: Basophils # (auto) 0.04 K/uL (0-0.2); Basophils % (auto) 0.3 %; Eosinophils % (auto) 0.7 %; Immature Granulocytes # (auto) 0.11 K/uL (0.00-0.02); Immature Granulocytes % (auto) 0.8 %; Lymphocytes # (auto) 1.75 K/uL (1.2-3.4); Lymphocytes % (auto) 12.4 %; Monocytes # (auto) 1.45 K/uL (0.11-0.59); Monocytes % (auto) 10.3 %; Neutrophils # (auto) 10.61 K/uL (1.4-6.5); Neutrophils % (auto) 75.5 %
[2018-08-12] MEDS: ENOXAPARIN INJ 40 MG/0.4 ML SYR SQ SCH (18:54)
[2018-08-12] MEDS: guaiFENesin 600 MG TABCR PO SCH (20:24)
[2018-08-12] MEDS: SODIUM CHLORIDE 1 GM TABLET PO SCH (20:24)
[2018-08-12] MEDS: HYDROCODONE/ACETAMOPHEN 5/325MG TAB PO PRN (22:47)
[2018-08-13] MEDS ORDERED: MoRPHine SULFATE 4 MG/ML 1 ML CARP\\VIAL ONE ×2 (01:46→07:59)
[2018-08-13] MEDS: MoRPHine SULFATE 2 MG/ML CARP IV PRN (01:50)
[2018-08-13] MEDS: VANCOMYCIN HCL 1,000 MG in SODIUM CHLORIDE 0.9% 250 ML IV SCH (04:38)
[2018-08-13] MEDS: HYDROCODONE/ACETAMOPHEN 5/325MG TAB PO PRN ×3 (04:47→16:00)
[2018-08-13] MEDS: PIPERACILLIN/TAZOBACTAM 3.375 GM in DEXTROSE 5% 100 ML IV SCH ×3 (06:27→22:11)
[2018-08-13] MEDS: DICLOFENAC SOD 1% GEL 100 GM TUBE EXT SCH ×4 (06:28→16:00)
[2018-08-13 06:44] LABS: Hemoglobin 10.9 g/dL (14.0-18.0); Mean Corpuscular Hgb Conc 34.1 g/dL (32-36); Mean Corpuscular Volume 95.2 fL (80-100); Mean Platelet Volume 9.2 fL (7.4-10.4); Platelet Count 496 K/uL (130-400); RDW Coefficient of Variation 13.3 % (11.5-14.5); RDW Standard Deviation 46.3 fL (36.4-46.3); Red Blood Count 3.36 M/uL (4.7-6.1); White Blood Count 13.11 K/uL (4.8-10.8)
[2018-08-13 07:19] LABS: BUN Creatinine Ratio 16.8 (10-20); Calcium 7.8 mg/dl (8.5-10.1); Est GFR (African American) 122.8; Est GFR (Non-African American) 105.9; Potassium 4.1 mmol/L (3.5-5.1)
--- NOTE | 2018-08-13 07:23 | XRay Report ---
XR chest 1V portable HISTORY: Postop. VATS COMPARISON: Chest 08/12/2018. FINDINGS: Left chest tube terminates in the left lung apex. This is unchanged in position. No definit e pneumothorax. There is also left basilar chest tube, unchanged. Small left pleural effusion persist s. Left lung interstitial thickening is slightly improved. Prior resection of the left anterior fourt h rib. Left chest wall subcutaneous emphysema remains unchanged. The heart is stable in size. The rig ht lung is clear. IMPRESSION: Postoperative changes again noted within the left hemithorax with improved aeration within the left h emithorax. No pneumothorax identified. Electronically signed by: Pavel Rose M.D. 08/13/2018 7:21 AM
[2018-08-13] MEDS ORDERED: VANCOMYCIN TROUGH ONE ×2 (07:30→11:30)
[2018-08-13 08:25] LABS: Basophils # (auto) 0.06 K/uL (0-0.2); Basophils % (auto) 0.5 %; Eosinophils # (auto) 0.29 K/uL (0-0.5); Eosinophils % (auto) 2.2 %; Immature Granulocytes # (auto) 0.13 K/uL (0.00-0.02); Lymphocytes # (auto) 1.61 K/uL (1.2-3.4); Lymphocytes % (auto) 12.3 %; Monocytes # (auto) 1.12 K/uL (0.11-0.59); Monocytes % (auto) 8.5 %; Neutrophils % (auto) 75.5 %
--- NOTE | 2018-08-13 08:59 | Progress Note ---
DATE: 08/13/2018 Mr. Pineda "feels great" today. He has no air leak. He has been draining some fluid from his chest tube, put out a total of 710, some of that was irrigation we had used. His PleurX catheter drained 300 last night, but very little today. His x-ray shows some blunting of the left costophrenic angle, but I think his x-ray looks better. All in all, I am quite pleased with Mr. Pineda. He is growing out a Staph aureus which is pansensitive. We will stop the vancomycin and simply continue the Zosyn. We will be able to transition him over to Augmentin. We were worried about his sodium. Today, his sodium is up to 131, his potassium is 4.1, chloride is 97. His BUN and creatinine are 11 and 0.67. Quite frankly, I am pleased with him. His white count is 13,110 with a hemoglobin of 10.9. He has been ambulating in the hallway. He is tolerating a regular diet. At this point, I would like to continue his chest tube for at least another day or two and then it is still unclear to me when we will take his PleurX out depending on his drainage. I am quite pleased and I think he is going to do well with this procedure.
[2018-08-13] MEDS ORDERED: IBUPROFEN 200 MG TAB PO SCH (09:00)
[2018-08-13] MEDS: SODIUM CHLORIDE 1 GM TABLET PO SCH ×2 (09:19→22:11)
[2018-08-13] MEDS: TIOTROPIUM BROMIDE 5 PUFF/90 MCG INH INH SCH (09:19)
[2018-08-13] MEDS: LORATADINE 10 MG TAB PO SCH (09:20)
--- NOTE | 2018-08-13 09:20 | Anesthesiology Progress Note ---
Date of Service August 13, 2018 Anesthesia Post Procedure Vital Signs Vital Signs: Temp Pulse Pulse Resp BP BP Pulse Ox 08/13/18 07:45 36.3 C L 76 18 104/70 95 08/13/18 07:00 36.7 C 72 16 104/73 95 08/13/18 02:58 36.9 C 77 16 85/54 L 94/62 L 95 08/12/18 22:54 36.7 C 80 17 98/65 L 93 08/12/18 20:53 36.8 C 86 17 100/62 93 08/12/18 20:02 77 16 95 08/12/18 17:06 37.5 C 99 H 17 102/68 93 08/12/18 16:00 101 H 16 95 08/12/18 15:09 36.7 C 100 H 17 109/73 91 08/12/18 13:52 36.8 C 90 16 103/67 92 08/12/18 12:47 90 16 107/73 96 08/12/18 11:30 36.6 C 89 16 118/79 92 08/12/18 11:00 36.8 C 89 18 102/69 92 08/12/18 10:40 92 H 20 95/65 L 96 08/12/18 10:30 36.6 C 88 16 110/79 97 08/12/18 10:20 90 19 105/73 94 08/12/18 10:10 89 19 119/76 98 08/12/18 10:00 88 23 111/73 97 08/12/18 09:53 36.8 C 77 20 120/96 96 Pain Intensity Left Ribs: Pain Intensity: 5 Left Lateral Chest: Pain Intensity: 5 Notes Mental Status: alert / awake / arousable and participated in evaluation Patient Amnestic to Procedure: Yes Nausea / Vomiting: adequately controlled Pain: adequately controlled Airway Patency, RR, SpO2: stable & adequate BP & HR: stable & adequate Hydration State: stable & adequate Anesthetic Complications: no major complications apparent and Pt Satisfied with anesthetic care
[2018-08-13] MEDS: ALBUT/IPRATROP 3MG/0.5MG NEB 3 ML VIAL NEB SCH ×4 (10:08→19:29)
[2018-08-13] MEDS: guaiFENesin 600 MG TABCR PO SCH ×2 (10:12→22:11)
[2018-08-13] MEDS ORDERED: BISACODYL 5 MG TABEC PO ONE (12:37)
[2018-08-13] MEDS ORDERED: BISACODYL 5 MG TABEC PO PRN (12:37)
[2018-08-13] MEDS ORDERED: SIMETHICONE 80 MG CHEW PO PRN (12:37)
--- NOTE | 2018-08-13 17:53 | Hospitalist Progress Note ---
Date of Service August 13, 2018 Assessment & Plan (1) Empyema of left pleural space: - Surgical management per primary team - Cx with MSSA - continuing Zosyn therapy for now and then will likely transition to Augmentin po for course as determined by Dr. Veloz - H/O L 4th Rib mass removed on Jul 23 with patching; ultimately had air leak and Heimlich valve which was then removed; now presenting with increasing L pleural effusion and underwent thoracentesis on 08/11 and underwent clean-out 08/12 with VATS (2) Hyponatremia: - Found incidentally on pre-operative labs; no home meds as culprit - Reports increasing fluid intake however not taking in food adequately - so maybe some poor intake/dilution from increase fluids - TSH WNL; some conflicting findings with osms could be tea and toast diet vs some hypovolemic hyponatremia- currently at 131-->130 - Fluid restriction in place; sodium tabs ordered -check daily weights, strict I/Os -dc NSAIDs as these can cause hyponatremia (3) COPD (chronic obstructive pulmonary disease): - No evidence of acute exacerbation at this time - Continue Albuterol PRN; Loratadine 10 mg daily; Tiotropium bromide daily; Duonebs ON LICENSE OF [facility] Supervising Physician Co-Signing Physician Notes PA Supervision Note: I did not personally see or examine the patient today, but I verified all casey p oints of FAHAD Mccrary's assessment and plan with the following exceptions/additions: None Subjective Reports feeling better today but having some discomfort at the chest tube site and did make some pain medication adjustment States he feels bloated and has not had a good BM in a few days. Will add a bowel regimen and simethicone Remains on RA and hemodynamically stable. Na is up to 131 and will repeat this evening - currently with fluid restriction Constitutional: + fatigue and + anorexia; no fever and no chills Respiratory: + cough, + chest congestion and + sputum production; no dyspnea Cardiovascular: + chest pain (Site of chest tube); no palpitations and no edema Gastrointestinal: + bloating and + constipation; no abdominal pain, no nausea, no vomiting and no diarrhea/loose stools Genitourinary (Male): no dysuria Physical Exam Vital Signs (Past 24 Hours): Last Vital Signs Temp 37.3 C 08/13/18 15:24 Pulse 87 08/13/18 15:28 Resp 16 08/13/18 15:28 BP 100/65 08/13/18 15:24 Pulse Ox 92 08/13/18 15:28 Constitutional: well developed, well nourished and + thin; no acute distress and not ill appearing Eyes: + anicteric sclerae ENMT: Ears: no hearing impairment Neck: trachea midline Respiratory: normal respiratory effort Auscultation: + rhonchi (diffuse with some improved aeration compared to yesterday's exam) Cardiovascular: Rate/Rhythm: regular rate and regular rhythm Heart Sounds: no murmur Gastrointestinal (Abdomen): Inspection/Auscultation: normal bowel sounds Percussion/Palpation: abdomen soft; abdomen nontender Skin: no rashes, warm and dry (other than described in chest) Neurologic: moves all extremities Psychiatric: A+Ox3, euthymic affect Results & Data Laboratory Results 08/13/18 08/13/18 08/13/18 Range/Units 18:06 06:09 06:09 WBC 13.11 H (4.8-10.8) K/uL RBC 3.36 L (4.7-6.1) M/uL Hgb 10.9 L (14.0-18.0) g/dL Hct 32.0 L (42-52) % MCV 95.2 (80-100) fL MCH 32.4 (25-34) pg MCHC 34.1 (32-36) g/dL RDW Std Deviation 46.3 (36.4-46.3) fL RDW Coeff of Genevieve 13.3 (11.5-14.5) % Plt Count 496 H (130-400) K/uL MPV 9.2 (7.4-10.4) fL Immature Gran % (Auto) 1.0 % Neut % (Auto) 75.5 % Lymph % (Auto) 12.3 % Baxter % (Auto) 8.5 % Eos % (Auto) 2.2 % Baso % (Auto) 0.5 % Immature Gran # (Auto) 0.13 H (0.00-0.02) K/uL Neut # (Auto) 9.90 H (1.4-6.5) K/uL Lymph # (Auto) 1.61 (1.2-3.4) K/uL Baxter # (Auto) 1.12 H (0.11-0.59) K/uL Eos # (Auto) 0.29 (0-0.5) K/uL Baso # (Auto) 0.06 (0-0.2) K/uL Sodium 130 L 131 L (136-145) mmol/L Potassium 3.7 4.1 (3.5-5.1) mmol/L Chloride 98 97 L (98-107) mmol/L Carbon Dioxide 26 27 (21-32) mmol/L Anion Gap 6.0 6.0 (3-11) BUN 10 11 (7-18) mg/dl Creatinine 0.73 0.67 (0.6-1.4) mg/dl Est Cr Clr Drug Dosing 117.5 128.0 ml/min Est GFR ( Amer) 118.5 122.8 Est GFR (Non-Af Amer) 102.2 105.9 BUN/Creatinine Ratio 14.0 16.8 (10-20) Glucose 112 H 105 H (70-99) mg/dl Calcium 7.5 L 7.8 L (8.5-10.1) mg/dl
[2018-08-13] MEDS: ENOXAPARIN INJ 40 MG/0.4 ML SYR SQ SCH (18:20)
[2018-08-13 18:35] LABS: Calcium 7.5 mg/dl (8.5-10.1); Creatinine Clr Calc Pharmacy 117.5 ml/min; Est GFR (African American) 118.5; Est GFR (Non-African American) 102.2; Potassium 3.7 mmol/L (3.5-5.1)
[2018-08-14] MEDS: HYDROCODONE/ACETAMOPHEN 5/325MG TAB PO PRN ×4 (04:38→21:30)
[2018-08-14] MEDS: PIPERACILLIN/TAZOBACTAM 3.375 GM in DEXTROSE 5% 100 ML IV SCH ×3 (05:56→21:30)
[2018-08-14] MEDS: DICLOFENAC SOD 1% GEL 100 GM TUBE EXT SCH ×4 (05:57→14:59)
[2018-08-14 06:20] LABS: Hematocrit (blood only) 29.9 % (42-52); Hemoglobin 10.2 g/dL (14.0-18.0); Mean Corpuscular Hgb Conc 34.1 g/dL (32-36); Mean Corpuscular Volume 94.9 fL (80-100); Platelet Count 522 K/uL (130-400); RDW Coefficient of Variation 13.3 % (11.5-14.5); RDW Standard Deviation 46.2 fL (36.4-46.3); Red Blood Count 3.15 M/uL (4.7-6.1); White Blood Count 12.22 K/uL (4.8-10.8)
[2018-08-14 06:53] LABS: BUN Creatinine Ratio 14.2 (10-20); Calcium 7.5 mg/dl (8.5-10.1); Est GFR (African American) 120.6; Potassium 4.1 mmol/L (3.5-5.1)
[2018-08-14] MEDS: ALBUT/IPRATROP 3MG/0.5MG NEB 3 ML VIAL NEB SCH ×4 (06:55→19:40)
[2018-08-14] MEDS: TIOTROPIUM BROMIDE 5 PUFF/90 MCG INH INH SCH (07:26)
[2018-08-14] MEDS: LORATADINE 10 MG TAB PO SCH (07:26)
[2018-08-14] MEDS: SODIUM CHLORIDE 1 GM TABLET PO SCH (07:27)
[2018-08-14] MEDS: guaiFENesin 600 MG TABCR PO SCH ×2 (07:27→21:26)
--- NOTE | 2018-08-14 08:04 | XRay Report ---
XR chest 2V routine CLINICAL HISTORY: 58 years-old Male presenting with empyema. TECHNIQUE: PA and lateral views of the chest were obtained. COMPARISON: 08/13/2018. FINDINGS: Two left pleural drains in place, one positioned at the periphery of the left upper lung and one at t he left lung base. Associated subcutaneous and soft tissue emphysema along the inferior left chest wa ll. Cardiomediastinal silhouette normal. Extensive mid to basilar predominant opacity of the left shari g and poor aeration of the left lung base. Small left pleural effusion, which may be loculated. No pn eumothorax. Right lung and pleural spaces grossly clear. Degenerative changes of the thoracic spine. Acute fracture of the lateral left fourth rib again noted. IMPRESSION: 1. No significant change in the small left pleural effusion and extensive mid to basilar predominant left lung infiltrates. Electronically signed by: Amarjit Bustillos M.D. 08/14/2018 8:03 AM
--- NOTE | 2018-08-14 16:22 | Hospitalist Progress Note ---
Date of Service August 14, 2018 Assessment & Plan (1) Empyema of left pleural space: - Surgical management per primary team - Cx with MSSA - continuing Zosyn therapy for now and then will likely transition to Augmentin po for course as determined by Dr. Veloz - H/O L 4th Rib mass removed on Jul 23 with patching; ultimately had air leak and Heimlich valve which was then removed; then presenting with increasing L pleural effusion and underwent thoracentesis on 08/11 and underwent clean-out 08/12 with VATS Hospitalist service will monitor peripherally. No contraindication for discharge from the medical team. Disposition/Discharge when ready by surgical team. Recommendations simply for maintaining a fluid restriction around 1500 mL even on discharge and can have F/U labs with PCP. Hospitalist will sign-off however do not hesitate to contact us for any questions/concerns (2) Hyponatremia: - Found incidentally on pre-operative labs; no home meds as culprit - Reports increasing fluid intake however not taking in food adequately - so maybe some poor intake/dilution from increase fluids - TSH WNL; some conflicting findings with osms could be tea and toast diet vs some hypovolemic hyponatremia- currently at 132 - Fluid restriction in place; will hold further sodium tablets and monitor with AM labs - Daily weights, strict I/Os - DC NSAIDs as these can cause hyponatremia (3) COPD (chronic obstructive pulmonary disease): - No evidence of acute exacerbation at this time - Continue Albuterol PRN; Loratadine 10 mg daily; Tiotropium bromide daily; Duonebs [facility] Supervising Physician Co-Signing Physician Notes PA Supervision Note: I did not personally see or examine the patient today, but I verified all casey points of FAHAD Mccrary's assessment and plan with the following exceptions/additions: None Subjective Reports feeling well today. The increased pill helps his pain. He feels that his breathing is stable and ambulating without difficulty. Is hoping the chest tube can be removed soon. Na is staying stable. Will hold further salt tablets and continue restriction and check labs in AM He did move his bowels yesterday and reports improvement with symptoms from yesterday Constitutional: no fever and no chills Eyes: no worsening vision Respiratory: + cough and + sputum production; no dyspnea Cardiovascular: + chest pain (Site of chest tube - improving); no palpitations and no edema Gastrointestinal: no abdominal pain, no nausea, no vomiting, no constipation and no diarrhea/loose stools Genitourinary (Male): no dysuria Neurologic: no gait abnormality and no unsteadiness Physical Exam Vital Signs (Past 24 Hours): Last Vital Signs Temp 36.8 C 08/14/18 15:27 Pulse 79 08/14/18 16:04 Resp 18 08/14/18 16:04 BP 102/65 08/14/18 15:27 Pulse Ox 93 08/14/18 16:04 Constitutional: well developed, well nourished and + thin; no acute distress and not ill appearing Eyes: + anicteric sclerae ENMT: Ears: no hearing impairment Neck: trachea midline Respiratory: normal respiratory effort Auscultation: + rhonchi Cardiovascular: Rate/Rhythm: regular rate and regular rhythm Heart Sounds: no murmur Chest (Breasts): Additional Comments: dressing applied around chest tube and pleur-x c/d/i Gastrointestinal (Abdomen): Inspection/Auscultation: normal bowel sounds Percussion/Palpation: abdomen soft; abdomen nontender Skin: no rashes, warm and dry (other than described in chest) Neurologic: moves all extremities Psychiatric: A+Ox3, euthymic affect
[2018-08-14] MEDS: ENOXAPARIN INJ 40 MG/0.4 ML SYR SQ SCH (18:18)
--- NOTE | 2018-08-14 19:01 | Progress Note ---
DATE: 08/14/2018 Mr. Pineda was seen today on 08/14/2018. He looks better. His numbers are all improving. He is growing out a methicillin-sensitive staph aureus from his pleural fluid. I am happy with his x-ray. He does have some thickening at the base but our PleurX catheter is right in the middle of this. The PleurX drained about 225 mL this morning. I went ahead and removed his chest tube as it was draining very little. His incisions are all clean, although he does have some mild erythema around his access port. The PleurX site and his chest tube site are clean. We are going to continue the Zosyn for the time being. I am going to see how his wounds look tomorrow. We will get an AP and lateral film on him in the morning.
[2018-08-15] MEDS: PIPERACILLIN/TAZOBACTAM 3.375 GM in DEXTROSE 5% 100 ML IV SCH ×3 (05:43→21:51)
[2018-08-15] MEDS: DICLOFENAC SOD 1% GEL 100 GM TUBE EXT SCH ×4 (05:44→16:06)
[2018-08-15] MEDS: HYDROCODONE/ACETAMOPHEN 5/325MG TAB PO PRN ×3 (05:47→21:54)
[2018-08-15 06:50] LABS: Hematocrit (blood only) 28.2 % (42-52); Mean Corpuscular Hgb Conc 35.5 g/dL (32-36); Mean Corpuscular Volume 94.3 fL (80-100); Mean Platelet Volume 8.9 fL (7.4-10.4); Platelet Count 530 K/uL (130-400); RDW Coefficient of Variation 13.4 % (11.5-14.5); RDW Standard Deviation 45.9 fL (36.4-46.3); Red Blood Count 2.99 M/uL (4.7-6.1); White Blood Count 11.99 K/uL (4.8-10.8)
[2018-08-15 07:20] LABS: BUN Creatinine Ratio 15.1 (10-20); Calcium 7.8 mg/dl (8.5-10.1); Creatinine Clr Calc Pharmacy 118.7 ml/min; Est GFR (African American) 121.3; Est GFR (Non-African American) 104.6; Potassium 4.2 mmol/L (3.5-5.1)
[2018-08-15] MEDS: ALBUT/IPRATROP 3MG/0.5MG NEB 3 ML VIAL NEB SCH (07:34)
--- NOTE | 2018-08-15 08:02 | XRay Report ---
XR chest 2V routine CLINICAL HISTORY: 58 years-old Male presenting with CHEST TUBE REMOVAL. TECHNIQUE: PA and lateral views of the chest were obtained. COMPARISON: [facility] 12/2018. FINDINGS: Cardiac silhouette top normal in size. 1 of the 2 left pleural drains has been removed. No pneumothor ax. The drain at the left lung base remains in place. Small left pleural effusion persists, which is likely loculated. Associated subcutaneous/soft tissue emphysema along the inferior left chest wall un changed. Diffuse left lung hazy opacity with a mid to basilar predominance. Trace right pleural effus ion. Right lung clear. Degenerative changes of the thoracic spine. Upper abdomen normal. IMPRESSION: 1. Removal of one of the 2 left pleural drains. No pneumothorax. 2. Unchanged left lung infiltrate and loculated left pleural effusion. Electronically signed by: Amarjit Bustillos M.D. 08/15/2018 8:01 AM
[2018-08-15] MEDS ORDERED: ALBUT/IPRATROP 3MG/0.5MG NEB 3 ML VIAL NEB PRN (08:25)
[2018-08-15] MEDS: guaiFENesin 600 MG TABCR PO SCH ×2 (09:40→21:47)
[2018-08-15] MEDS: LORATADINE 10 MG TAB PO SCH (09:41)
[2018-08-15] MEDS: TIOTROPIUM BROMIDE 5 PUFF/90 MCG INH INH SCH (09:41)
--- NOTE | 2018-08-15 09:57 | Progress Note ---
DATE: 08/15/2018 SUBJECTIVE: Mr. Pineda was seen today. He looks great. He is walking around the hallway without difficulty. OBJECTIVE: He is on room air. He has excellent saturations. His lungs are clear. His ice chest tube was pulled last night and the x-ray today shows no evidence of pneumothorax. He does have pleural thickening at the base. I believe that the airfield densities are improving. He certainly sounds very good on exam. LABORATORY DATA: The patient's white count today is 11,990. Hemoglobin is 10.0. His sodium is up to 133. His BUN and creatinine are 10 and 0.69 respectively. ASSESSMENT AND PLAN: I inspected his wounds that were all clean except for the access incision from his drainage of his empyema. Chest tube site was clean and the other port sites were fine; however, this area has some erythema. There is no fluctuance, but he does appear to have some purulent drainage. We are going to continue the Zosyn and put an antimicrobial dressing over this. I am going to keep him on parenteral antibiotics and will see how he looks in the morning. His PleurX site is clean and he drained 200 mL of fluid. My hope is that this goes down in the next few days. We are going to have to continue him on antibiotics, however.
[2018-08-15] MEDS: ENOXAPARIN INJ 40 MG/0.4 ML SYR SQ SCH (18:41)
[2018-08-16] MEDS: DICLOFENAC SOD 1% GEL 100 GM TUBE EXT SCH ×4 (06:05→18:15)
[2018-08-16] MEDS: PIPERACILLIN/TAZOBACTAM 3.375 GM in DEXTROSE 5% 100 ML IV SCH ×3 (06:05→21:21)
[2018-08-16] MEDS: TIOTROPIUM BROMIDE 5 PUFF/90 MCG INH INH SCH (09:04)
[2018-08-16] MEDS: LORATADINE 10 MG TAB PO SCH (09:04)
[2018-08-16] MEDS: guaiFENesin 600 MG TABCR PO SCH ×2 (09:04→21:06)
--- NOTE | 2018-08-16 10:20 | Progress Note ---
DATE: 08/16/2018 Mr. Pineda was seen today. The erythema and drainage from his thoracoscopy access port on the left side has improved. He is still draining some purulent material, but the erythema and edema is improved. I drained his PleurX catheter for 250 mL of a serous fluid. I have sent it down to the lab for evaluation. He looks fine. He is moving his bowels. He is eating. He is afebrile. He is on room air. He is ambulating in the hallway. Postop day #6 status post decortication for staph aureus, empyema, left pleural cavity. He is improving; however, he lives a good distance from the hospital, I am not comfortable sending him home at this point. We are going to continue the parenteral antibiotics and will evaluate him on a daily basis. SHAMA
[2018-08-16 11:03] LABS: Glucose Pleural Fluid < 1 mg/dl
[2018-08-16 11:16] LABS: LDH Pleural Fluid 2090 U/L
--- NOTE | 2018-08-16 11:51 | XRay Report ---
XR chest 2V routine HISTORY: left empyema COMPARISON: Chest 08/15/2018. FINDINGS: Left basilar pleural catheter is unchanged in position. Small left pleural effusion has sli ghtly improved. Hazy and interstitial thickening within the left lung remains unchanged. The heart is normal in size. The right lung is clear. No pneumothorax. IMPRESSION: 1. Slight improvement in the small left pleural effusion. The left pleural catheter remains unchanged . 2. Left lung opacities persist. Electronically signed by: Pavel Rose M.D. 08/16/2018 11:50 AM
[2018-08-16 12:15] LABS: Appearance Pleural Fluid CLOUDY; Color Pleural Fluid AMBER; Mononuclear WBC Pleural 3.7 %; Polynuclear WBC Pleural 96.3 %; RBC Pleural Fluid (A) 18000 /uL; Source Pleural Fluid LEFT LUNG; WBC Pleural Fluid (A) 48026 /uL
[2018-08-16] MEDS: POLYETHYLENE (MIRALAX) 17 GM PACK PO PRN (14:03)
[2018-08-16] MEDS: HYDROCODONE/ACETAMOPHEN 5/325MG TAB PO PRN (16:46)
[2018-08-16] MEDS: ENOXAPARIN INJ 40 MG/0.4 ML SYR SQ SCH (18:16)
[2018-08-17] MEDS: PIPERACILLIN/TAZOBACTAM 3.375 GM in DEXTROSE 5% 100 ML IV SCH ×3 (06:35→22:06)
[2018-08-17] MEDS: DICLOFENAC SOD 1% GEL 100 GM TUBE EXT SCH ×4 (06:37→15:29)
[2018-08-17] MEDS: HYDROCODONE/ACETAMOPHEN 5/325MG TAB PO PRN ×2 (06:40→20:16)
[2018-08-17] MEDS: guaiFENesin 600 MG TABCR PO SCH ×2 (08:34→20:16)
[2018-08-17] MEDS: LORATADINE 10 MG TAB PO SCH (08:34)
[2018-08-17] MEDS: TIOTROPIUM BROMIDE 5 PUFF/90 MCG INH INH SCH (08:34)
--- NOTE | 2018-08-17 12:25 | Progress Note ---
DATE: 08/17/2018 Mr. Pineda was seen today. A bit disappointed to see gram-positive cocci on the Gram stain. This is a Staph aureus, although sensitivities are not back yet. I only drained 150 mL today. He has no fever. The fluid is less than yesterday. The erythema and drainage from his access site for his thoracoscopy is improving on a daily basis. We are going to continue the local antimicrobial with the antibiotics. I think he is getting better with the Zosyn; however, this could be a bit longer than I anticipated. We are going to have to wait until he stops draining and the pleural fluid is negative. The patient is eating well. He is moving his bowels normally. Ambulating in the hallway. He is not on oxygen. He does have some decreased breath sounds on the left, but no wheezing, rhonchi, or rales. He is in no discomfort. The PleurX site is clean. MTDD
[2018-08-17] MEDS: ENOXAPARIN INJ 40 MG/0.4 ML SYR SQ SCH (17:41)
[2018-08-18] MEDS: PIPERACILLIN/TAZOBACTAM 3.375 GM in DEXTROSE 5% 100 ML IV SCH ×2 (05:47→13:58)
[2018-08-18] MEDS: DICLOFENAC SOD 1% GEL 100 GM TUBE EXT SCH ×4 (05:49→17:08)
[2018-08-18 05:50] LABS: Basophils # (auto) 0.05 K/uL (0-0.2); Basophils % (auto) 0.5 %; Eosinophils # (auto) 0.16 K/uL (0-0.5); Eosinophils % (auto) 1.7 %; Hematocrit (blood only) 28.9 % (42-52); Hemoglobin 9.9 g/dL (14.0-18.0); Immature Granulocytes # (auto) 0.07 K/uL (0.00-0.02); Immature Granulocytes % (auto) 0.7 %; Lymphocytes # (auto) 2.13 K/uL (1.2-3.4); Lymphocytes % (auto) 22.4 %; Mean Corpuscular Hgb Conc 34.3 g/dL (32-36); Mean Corpuscular Volume 95.4 fL (80-100); Mean Platelet Volume 8.3 fL (7.4-10.4); Monocytes # (auto) 0.83 K/uL (0.11-0.59); Monocytes % (auto) 8.7 %; Neutrophils # (auto) 6.29 K/uL (1.4-6.5); Platelet Count 573 K/uL (130-400); RDW Coefficient of Variation 13.4 % (11.5-14.5); RDW Standard Deviation 46.7 fL (36.4-46.3); Red Blood Count 3.03 M/uL (4.7-6.1); White Blood Count 9.53 K/uL (4.8-10.8)
[2018-08-18 06:24] LABS: Albumin Level 1.7 gm/dl (3.4-5.0); BUN Creatinine Ratio 12.5 (10-20); Calcium 7.9 mg/dl (8.5-10.1); Creatinine Clr Calc Pharmacy 110.9 ml/min; Est GFR (African American) 119.2; Est GFR (Non-African American) 102.8; Phosphorus 3.7 mg/dl (2.5-4.9)
[2018-08-18] MEDS: HYDROCODONE/ACETAMOPHEN 5/325MG TAB PO PRN ×3 (07:30→21:23)
[2018-08-18] MEDS: LORATADINE 10 MG TAB PO SCH (07:32)
[2018-08-18] MEDS: guaiFENesin 600 MG TABCR PO SCH ×2 (07:32→21:23)
[2018-08-18] MEDS: TIOTROPIUM BROMIDE 5 PUFF/90 MCG INH INH SCH (07:32)
--- NOTE | 2018-08-18 08:39 | XRay Report ---
XR chest 2V routine CLINICAL HISTORY: empyema COMPARISON STUDY: 08/16/2018 FINDINGS: The cardiac and mediastinal contours remain stable. There is a slight decrease in the left- sided subcutaneous emphysema. The left basilar chest tube remains unchanged in position. No pneumotho rax is visualized. There is persistent left pleural thickening/fluid. The left lung interstitial thic kening remains stable.[ The right lung is clear. IMPRESSION: Stable findings Electronically signed by: Fabien Morataya M.D. 08/18/2018 8:37 AM
--- NOTE | 2018-08-18 08:39 | Progress Note ---
DATE: 08/18/2018 Nabor was seen today. He looks great. He has no complaints whatsoever. He denies pain. Having said that, he does have some drainage from his access port. He has persistent erythema, although it is not really very extensive. He continues to have some purulent drainage from this wound. There is no fluctuance. The drainage from his PleurX catheter is decreasing. I only got 75 mL this morning and they got 50 last night. I got about 150 yesterday morning. The patient is afebrile. He has stable vital signs. His labs look quite good today. His sodium is up to 137. His white count is normal at 9530. Hemoglobin is stable at 9.9. His BUN and creatinine are 9 and 0.72. In reviewing his micro, the fluid that we drained 2 days ago on 08/16/2018 has persistent methicillin sensitive Staph aureus. He has been on Zosyn since his admission 1 week ago today. I am going to check a CT scan without contrast this morning. I may switch him over to a cephalosporin, but I would like to see how the scan looks. Hopefully his drainage will continue to decrease. Based on what we see on the CT, there is a possibility we may put some tPA or Dornase into this catheter. His pleural fluid today was serous in nature.
--- NOTE | 2018-08-18 09:22 | CT Scan Report ---
CT SCAN OF THE CHEST WITHOUT IV CONTRAST CLINICAL HISTORY: Empyema. COMPARISON STUDY: Chest x-ray dated 08/18/2018. Chest CT dated 02/28/2018. PET/CT dated 07/09/2018. TECHNIQUE: CT scan of the thorax was performed from the thoracic inlet to the upper abdomen. Images are reviewed in the axial, sagittal, and coronal planes. IV contrast was not administered for this ex amination as per the referring clinician. Note that the examination is suboptimal without IV contrast . A dose lowering technique was utilized adhering to the principles of ALARA. CT DOSE: 301.04 mGy.cm FINDINGS: Thyroid: Imaged portions of the thyroid gland are normal in size and attenuation. Thoracic aorta: There is mild atherosclerotic calcification of the thoracic aorta, which is normal in caliber and demonstrates standard 3-vessel arch anatomy. Heart: The heart is normal in size and without pericardial effusion. The coronary arteries are densel y calcified. Lungs and pleural spaces: Emphysematous change is noted. Trace pleural fluid with scarring/atelectas is is noted at the right lung base. There is a partially loculated pleural collection at the left shari g base which contains small foci of gas. There is associated pleural thickening, and the appearance i s consistent with the reported history of empyema. This collection measures up to 3 cm in maximum thi ckness. A pleural drain is present within the collection at the left lung base, entering laterally be tween the 8th and 9th ribs. Consolidation is noted at the left lung base. Small foci of loculated flu id are also seen along the anterior left chest wall and the left major fissure. No pneumothorax is se en. The trachea and central airways are clear. Mediastinum: There are numerous subcentimeter mediastinal lymph nodes. These are not pathologically e nlarged by size criteria Karla: Not well assessed without IV contrast. Axillae: There is no axillary lymphadenopathy. Upper abdomen: Partially visualized upper abdominal viscera is within normal limits. Skeletal structures: The left anterior fourth rib is surgically absent. There are healed left lower r ib fractures. No lytic or blastic bony lesions are seen. Soft tissues: A 3 cm sebaceous cyst is noted in the upper back on image #47. Subcutaneous emphysema a nd mild induration is noted along the left chest wall. IMPRESSION: 1. There are postoperative changes from left anterior 4th rib resection, new from prior studies. 2. There is a thick-walled and at least partially loculated pleural collection at the left lung base, with a left-sided pleural drain in place and associated left basilar consolidation. This is consiste nt with reported clinical history of empyema. 3. Emphysema. 4. Trace pleural fluid is seen at the right lung base. The right lung is otherwise clear. 5. Additional findings as above. Electronically signed by: Liu Dawson M.D. 08/18/2018 9:21 AM
[2018-08-18] MEDS: ENOXAPARIN INJ 40 MG/0.4 ML SYR SQ SCH (17:09)
[2018-08-18] MEDS: CEFAZOLIN 2000MG 2,000 MG/15 ML SYR IV SCH (21:24)
[2018-08-19] MEDS: HYDROCODONE/ACETAMOPHEN 5/325MG TAB PO PRN ×4 (01:21→20:53)
[2018-08-19] MEDS: CEFAZOLIN 2000MG 2,000 MG/15 ML SYR IV SCH ×3 (06:09→22:11)
[2018-08-19] MEDS: DICLOFENAC SOD 1% GEL 100 GM TUBE EXT SCH ×4 (06:12→17:21)
[2018-08-19] MEDS: guaiFENesin 600 MG TABCR PO SCH ×2 (07:46→20:53)
[2018-08-19] MEDS: LORATADINE 10 MG TAB PO SCH (07:47)
[2018-08-19] MEDS: TIOTROPIUM BROMIDE 5 PUFF/90 MCG INH INH SCH (07:48)
[2018-08-19] MEDS: RECOMBINANT IPL SCH ×2 (09:14→20:52)
[2018-08-19] MEDS: ALTEPLASE IPL SCH ×2 (09:14→20:52)
[2018-08-19] MEDS: DORNASE ALFA 5 ML in SYRINGE 25 ML IPL SCH ×2 (10:35→22:11)
--- NOTE | 2018-08-19 11:19 | XRay Report ---
XR chest 1V portable CLINICAL HISTORY: empyema dyspnea COMPARISON STUDY: 08/18/2018 FINDINGS: Left basilar chest tube unchanged in position. Small left effusion with medial left basilar consolidation is similar. Subtle increase in density left hemithorax is stable. Right lung is clear. IMPRESSION: Postprocedural changes left lung base including unchanged position of a drainage cathete r. No evidence of pneumothorax. The above report was generated using voice recognition software. It may contain grammatical, syntax or spelling errors. Electronically signed by: Aric Joiner M.D. 08/19/2018 11:18 AM
--- NOTE | 2018-08-19 18:54 | Progress Note ---
DATE: 08/19/2018 Mr. Pineda was seen today. He is afebrile. He looks quite good. His PleurX catheter was used for the MIST-2 protocol earlier and he drained about 150 mL after we instilled this. I am hopeful that this improves his chest x-ray. He has a small amount of loculated fluid above the diaphragm, and we have continued to grow methicillin sensitive staph out of this, but I think with the MIST-2 protocol we can get this completely drained. SHAMA
[2018-08-19] MEDS: ENOXAPARIN INJ 40 MG/0.4 ML SYR SQ SCH (20:52)
[2018-08-20] MEDS: CEFAZOLIN 2000MG 2,000 MG/15 ML SYR IV SCH ×3 (06:05→22:12)
[2018-08-20] MEDS: DICLOFENAC SOD 1% GEL 100 GM TUBE EXT SCH ×4 (06:06→15:24)
[2018-08-20] MEDS: HYDROCODONE/ACETAMOPHEN 5/325MG TAB PO PRN ×3 (06:13→21:24)
--- NOTE | 2018-08-20 07:21 | XRay Report ---
XR chest 1V not portable CLINICAL HISTORY: empyema COMPARISON STUDY: 08/19/2018 FINDINGS: The cardiac images so contours remain stable. There is a left basilar chest tube. There is trace left-sided subcutaneous emphysema. There is a persistent small left pleural effusion/pleural th ickening. Associated left basilar consolidative changes remain unchanged. The right lung remains inessa r. No pneumothorax is visualized. There are presumed postsurgical changes involving the left fourth r ib. IMPRESSION: No significant change from the preceding study. No evidence of pneumothorax. Stable left- sided pleural drain with left-sided pleural fluid/thickening and left mid and lower lung zone airspac e opacities Electronically signed by: Fabien Morataya M.D. 08/20/2018 7:20 AM
[2018-08-20] MEDS: ALTEPLASE IPL SCH ×2 (08:21→19:40)
[2018-08-20] MEDS: RECOMBINANT IPL SCH ×2 (08:21→19:40)
[2018-08-20] MEDS: LORATADINE 10 MG TAB PO SCH (08:49)
[2018-08-20] MEDS: guaiFENesin 600 MG TABCR PO SCH ×2 (08:49→21:05)
[2018-08-20] MEDS: DORNASE ALFA 5 ML in SYRINGE 25 ML IPL SCH ×2 (09:54→21:05)
[2018-08-20] MEDS: TIOTROPIUM BROMIDE 5 PUFF/90 MCG INH INH SCH (10:15)
--- NOTE | 2018-08-20 19:23 | Progress Note ---
DATE: 08/20/2018 Mr. Pineda was seen today. He has had a bit more pain when they drain him now, which actually is a good sign that his lung is expanding. There has been some blood in the drainage, but really not very much and he has not drained nearly as much fluid. He is ambulating in the hallway. He has been eating well. He is moving his bowels. His x-ray looks about the same. We are continuing the MIST2 protocol through tomorrow and then repeat his cultures on Saturday and repeat a CT scan.
[2018-08-20] MEDS: ENOXAPARIN INJ 40 MG/0.4 ML SYR SQ SCH (19:40)
[2018-08-21] MEDS: DICLOFENAC SOD 1% GEL 100 GM TUBE EXT SCH ×4 (06:12→16:07)
[2018-08-21] MEDS: CEFAZOLIN 2000MG 2,000 MG/15 ML SYR IV SCH ×3 (06:12→22:59)
[2018-08-21] MEDS: HYDROCODONE/ACETAMOPHEN 5/325MG TAB PO PRN ×3 (06:19→23:02)
--- NOTE | 2018-08-21 07:22 | XRay Report ---
XR chest 1V not portable CLINICAL HISTORY: empyema COMPARISON STUDY: 08/20/2018 FINDINGS: The cardiac and mediastinal contours remain stable. There is a persistent small left pleura l effusion with associated left basilar atelectasis/consolidation. Postsurgical changes involve the l eft fourth rib. Left basilar pleural drain remains unchanged in position. There is no pneumothorax. L eft mid and lower lung zone interstitial opacities remain stable.[ IMPRESSION: Stable findings Electronically signed by: Fabien Morataya M.D. 08/21/2018 7:21 AM
[2018-08-21] MEDS: RECOMBINANT IPL SCH ×2 (08:06→19:45)
[2018-08-21] MEDS: ALTEPLASE IPL SCH ×2 (08:06→19:45)
[2018-08-21] MEDS: DORNASE ALFA 5 ML in SYRINGE 25 ML IPL SCH ×2 (09:11→21:35)
[2018-08-21] MEDS: LORATADINE 10 MG TAB PO SCH (10:59)
[2018-08-21] MEDS: guaiFENesin 600 MG TABCR PO SCH ×2 (10:59→21:20)
[2018-08-21] MEDS: TIOTROPIUM BROMIDE 5 PUFF/90 MCG INH INH SCH (10:59)
--- NOTE | 2018-08-21 15:56 | Progress Note ---
DATE: 08/21/2018 Mr. Pineda was seen today. His drainage has really not been much with each of the drainages. He has no clinical complaints. He is on his last day of his MIST-2 protocol. We are going to finish this up today and then tomorrow we will check a CT scan and send his fluid off for culture. His incision looks better. He has less erythema, less drainage. We will see how he looks in the morning.
[2018-08-21] MEDS: ENOXAPARIN INJ 40 MG/0.4 ML SYR SQ SCH (17:57)
[2018-08-21] MEDS: POLYETHYLENE (MIRALAX) 17 GM PACK PO PRN (18:03)
[2018-08-22] MEDS: CEFAZOLIN 2000MG 2,000 MG/15 ML SYR IV SCH ×3 (06:16→21:31)
[2018-08-22] MEDS: DICLOFENAC SOD 1% GEL 100 GM TUBE EXT SCH ×4 (06:22→16:59)
--- NOTE | 2018-08-22 07:34 | XRay Report ---
XR chest 1V not portable CLINICAL HISTORY: 58 years-old Male presenting with empyema. TECHNIQUE: Portable upright AP view of the chest was obtained. COMPARISON: 08/21/2018. FINDINGS: Left pleural drain positioned at the left lung base. Minimal associated soft tissue emphysema. Cardio mediastinal silhouette normal. Diffuse hazy opacity with a gradient of density and persistent loculat ed left pleural effusion. No pneumothorax. Degenerative changes of the thoracic spine. Acute fracture of one of the lateral left ribs. IMPRESSION: 1. No significant change from prior. Persistent loculated left pleural effusion and basilar predomin ant infiltrate. Electronically signed by: Amarjit Bustillos M.D. 08/22/2018 7:32 AM
--- NOTE | 2018-08-22 09:02 | CT Scan Report ---
CT chest wo con CLINICAL HISTORY: 58 years-old Male presenting with empyema. TECHNIQUE: Multidetector CT imaging of the chest was performed without the use of intravenous contras t. IV contrast: None. One or more dose lowering techniques were used consistent with the principles o f ALARA (as low as reasonably achievable), including automatic exposure control, mA or kV adjustment to individual patient size, and/or use of iterative reconstruction. COMPARISON: 08/18/2018. CT DOSE (mGy.cm): The estimated cumulative dose is 281.65 mGy.cm. FINDINGS: [employer] topogram: Left pleural drain position at the left lung base with a loculated left pleural effus ion and hazy left lung infiltrate. Soft tissues: Normal thyroid and thoracic inlet. Few scattered small mediastinal lymph nodes, likely reactive. No axillary, supraclavicular, or mediastinal lymphadenopathy. Evaluation of the luis antonio limite d without intravenous contrast. Atherosclerosis of the aorta. Normal heart size. Coronary artery calc ification. Left pleural drain positioned at the left posterior lateral costophrenic sulcus, where the re is a small left pleural effusion and significant pleural thickening. The fluid component has decre ased from prior. Upper abdomen normal. Lungs and airways: No pneumothorax. Central airways patent. Mild bronchial wall thickening in the lef t lung. Mild interlobular septal thickening in the lung bases. Mild/moderate diffuse centrilobular em physema. Persistent subpleural consolidation and bronchiectasis in the lingula similar to prior. No n ew focal infiltrate. Musculoskeletal: Degenerative changes of the spine. Postsurgical changes of anterolateral left fourth rib resection. Nondisplaced fracture of the anterior left third rib unchanged from prior. IMPRESSION: 1. Diminished fluid volume within the loculated left pleural effusion with persistent significant pl eural thickening. This is compatible with known empyema. Left pleural drain remains in place. 2. Subpleural consolidation in the lingula and extensive left lung bronchial wall thickening unchang ed from prior. 3. Background emphysema. Electronically signed by: Amarjit Bustillos M.D. 08/22/2018 9:01 AM
[2018-08-22] MEDS: LORATADINE 10 MG TAB PO SCH (09:46)
[2018-08-22] MEDS: guaiFENesin 600 MG TABCR PO SCH ×2 (09:46→20:40)
[2018-08-22] MEDS: TIOTROPIUM BROMIDE 5 PUFF/90 MCG INH INH SCH (09:46)
[2018-08-22] MEDS: HYDROCODONE/ACETAMOPHEN 5/325MG TAB PO PRN ×2 (09:49→20:42)
[2018-08-22] MEDS: ENOXAPARIN INJ 40 MG/0.4 ML SYR SQ SCH (17:00)
--- NOTE | 2018-08-22 20:11 | Progress Note ---
DATE: 08/22/2018 Mr. Pineda was seen today. He has now been hospitalized for 11 days. He has undergone evacuation of an empyema with decortication and removal of infected patch. He looks great. He has no fevers. He has no chills. I was quite pleased with his CT scan today, which showed a decrease in the amount of fluid in his left base. He did have a pleural thickening; however, I was quite happy to see that he had no organisms on his Gram stain. He is afebrile. His vital signs are stable. All in all, I am quite pleased with him. He is ambulating in the hallway without difficulty. ASSESSMENT AND PLAN: Pansensitive Staphylococcus aureus empyema, left chest. He has responded well to the MIST-2 protocol. If his cultures remain negative tomorrow, I am going to remove his PleurX catheter and allow him to be discharged as we are draining very little from these catheters. Today, we got less than 20 mL. I am quite pleased with how well he looks clinically.
[2018-08-23] MEDS: CEFAZOLIN 2000MG 2,000 MG/15 ML SYR IV SCH (05:13)
[2018-08-23] MEDS: HYDROCODONE/ACETAMOPHEN 5/325MG TAB PO PRN (05:21)
[2018-08-23] MEDS: DICLOFENAC SOD 1% GEL 100 GM TUBE EXT SCH ×2 (05:22→09:55)
[2018-08-23 07:31] VITALS: BP 131/84; TEMP 97.9; O2SAT 96
[2018-08-23] MEDS: guaiFENesin 600 MG TABCR PO SCH (08:52)
[2018-08-23] MEDS: LORATADINE 10 MG TAB PO SCH (08:52)
[2018-08-23] MEDS: TIOTROPIUM BROMIDE 5 PUFF/90 MCG INH INH SCH (08:52)
[2018-08-23 10:44] VITALS: PULSE 90
--- NOTE | 2018-08-23 11:17 | XRay Report ---
SINGLE VIEW CHEST CLINICAL HISTORY: Status post pleural catheter removal. Empyema. FINDINGS: An AP, portable, upright chest radiograph is compared to chest x-ray and chest CT dated 08/08. The examination is degraded by portable technique and patient rotation. The cardiomediastina l silhouette is unremarkable. Advanced emphysema and chronic interstitial thickening is similar to pr evious. A pleural drain at the left lung base is normal. There is a small to moderate pleural effusio ns with the left lung base with left basilar consolidation probable scarring in the left mid to lower lung is similar to previous. The right lung appears clear. No pneumothorax is seen. Postoperative ch cheryl is again seen in the left-sided ribs. IMPRESSION: 1. A pleural drain at the left lung base has been removed. No pneumothorax is seen. 2. Small to moderate pleural effusion at the left lung base with associated consolidation is similar to previous. 3. Emphysema. Electronically signed by: Liu Dawson M.D. 08/23/2018 11:16 AM
--- NOTE | 2018-08-24 00:14 | Operative Report ---
DATE OF OPERATION: 08/23/2018 PROCEDURE: Removal of left PleurX catheter. SURGEON: Brant Veloz MD ANESTHESIA: Local. SPECIFICS OF PROCEDURE: The patient is lying supine in the bed. I took off all his dressings and cut the suture and anesthetize this area after prepping it with alcohol. I then had to sharply dissect out the fiber sheath, which was done rather easily. The catheter was then removed quickly and an occlusive antimicrobial dressing was placed. He tolerated it well. X-ray after we pulled it looked quite good. I attest to the content of the Intraoperative Record and any orders documented therein. Any exception s are noted below.
--- NOTE | 2018-08-24 01:39 | Discharge Summary ---
DISCHARGE DIAGNOSES: 1. Postoperative left pleural empyema. 2. Infected prosthetic patch left chest wall. 3. 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 4. History of cigarette smoking. HOSPITAL COURSE: This patient is a 58-year-old male who had an enlarging mass in his left 4th rib growing inward. I brought the patient to the Operating Room electively and on 07/23/2018, I performed a robot-assisted left thoracoscopy with resection of this mass. We placed a prosthetic mesh into the chest wall to cover this defect intrathoracically. This went very well. He was discharged quite quickly. He was discharged home on postoperative day #3 and I was quite pleased with him. Unfortunately, he had a small air leak and I discharged the patient with Heimlich valve. I had made arrangements to see him back in the office; however, due to snow and other issues, he was not seen for 9 days, when he came back in, chest tube was no longer leaking air and I removed it. The patient then presented back to the office on 08/11/2018 with increasing chest pain and loculated effusion. He was admitted. I was going to take him to the Operating Room that evening after admitted from the office because I tapped him and obviously the fluid was infected with a pH of 6.6. Upon evaluation of the patient, his sodium was down to 126. As it was in the evening, Anesthesia was a bit concerned about this and asked if we can wait till the following morning. Sodium came back up to 129. The following morning, I took him to the Operating Room and did an empyemectomy and removed the prosthetic patch thoracoscopically and decorticated him. He did well with the surgery and immediately felt better. He was on room air, ambulating in the hallway on the floor of the day of surgery. The problem that we ran into was that the patient had persistent drainage from his chest tube. I was able to remove the chest tube, but I did not have an air leak and I had a PleurX catheter and the PleurX continued to drain. The fluid was also infected. For this reason, we elected to proceed with MIST-2 protocol with TPA and Pulmozyme. This worked very nicely. The fluid became less turbid and after 3 days, we repeated CT scan and really he just had some pleural thickening. Drainage decreased tremendously from the PleurX catheter. In fact, on the morning of his discharge, I got 3 mL of serous fluid from his PleurX catheter. A chest x-ray showed he had continued thickening after I pulled the PleurX catheter. His incisions were clean. He did have one incision with some drainage and erythema at the port site, but this had completely resolved by the time he was discharged. He grew out methicillin-sensitive Staph aureus, but did not have any growth on the pleural fluid we had sent on 08/22/2018. I removed the PleurX catheter and discharged him. He had no pain. We are going to continue 4 weeks of antibiotics; however, I just put him on 2 weeks of Keflex and I will see him back in the office this week to see how he looks. We have been quite pleased with him and clinically he looks quite good.
== END 2018-08-23 11:29 | disposition home health service (06) | DRG 164 ==
LOC: 3N 13:19

== ENCOUNTER 2025-05-14 20:45 | Inpatient (IN) ==
--- NOTE | 2025-05-14 21:01 | Emergency Department Note ---
Impression & Plan Closed hip fracture, Acute hyponatremia, Alcohol abuse ED Provider Note NAME: MILENA WHITMORE AGE: 65 SEX: M : 1960 ARRIVES VIA: Ambulance INFORMANT: Patient ED PROVIDER(S): Bert Denney DO CHIEF COMPLAINT: Fall HPI: Patient is a 65-year-old male with a past medical history of hyponatremia, GERD and COPD who presents to the ER for a fall. He was drinking alcohol today and had a 12 pack. He fell onto his left hip. He is unable to get up. He does not think he hit his head. Denies any neck pain chest pain belly pain. Pain is focal in the left hip. No tingling or numbness. ADDITIONAL HISTORY OBTAINED: Per HPI Chronic Medical/Social Conditions Affecting Care: Per HPI PAST MEDICAL HISTORY:See Below PAST SURGICAL HISTORY:See Below FAMILY HISTORY:See Below SOCIAL HISTORY:See Below HOME MEDICATIONS:See Below ALLERGIES:See Below VITALS:See Below PHYSICAL EXAMINATION: Primary Survey Airway: Intact Breathing: Normal, breath sounds equal bilaterally Circulation: Skin warm, distal pulses 2+, capillary refill less than 2 seconds GCS: 15 Secondary Survey GENERAL: alert, intoxicated with smell of alcohol on breath HEAD: normal cephalic, atraumatic EYE EXAM: normal conjunctiva, PERRL and EOM's grossly intact OROPHARYNX: no exudate, no erythema, lips, buccal mucosa, and tongue normal and mucous membranes are moist EARS: TMs clear b/l NECK: supple, no nuchal rigidity, no adenopathy, non-tender CHEST: stable to compression anteriorly and posteriorly LUNGS: clear to auscultation. Normal chest wall mechanics HEART: no murmurs, S1 normal and S2 normal ABDOMEN: abdomen soft, non-tender, normo-active bowel sounds, no masses, no rebound or guarding. PELVIS: stable to compression anteriorly and posteriorly BACK: Back is symmetrical on inspection and there is no deformity, no midline tenderness, no CVA tenderness. UPPER EXTREMITIES: full active and passive range of motion of all joints without tenderness to palpation LOWER EXTREMITIES: No tenderness on the entire right lower extremity. Obvious deformity left proximal femur. No tenderness about the distal femur knee tib- fib ankle or foot. DP and PT 2 out of 4. Gross station intact. NEURO EXAM: Awake alert answering questions appropriately with a smell of alcohol breath, cranial nerves II-XII grossly intact, normal speech, no gross weakness of arms, no gross weakness of legs. GCS: 15. MEDICAL DECISION MAKING: Patient is a 65-year-old male who presents ER for above-stated complaint. IV was established and blood work is obtained. Labs showed no significant leukocytosis. Hemoglobin at 13.9. INR unremarkable. BMP with a hyponatremia 121. LFTs bilirubin was unremarkable. Lipase was normal. Alcohol at 206. Patient was given thiamine, folic acid as well as IV morphine and fluids. X- rays of the pelvis and hip show a left hip, chest abdomen pelvis was obtained. I contacted radiology as there was initially concern for a subarachnoid bleed but after discussion with the radiologist it was consistent with the falx which was very calcified. CTs were read as negative and patient was discussed with the hospitalist for further evaluation management treatment. Cervical spine was cleared around 10:30 PM. Patient never had any cervical tenderness and denies hitting his head. Consults/Care Managements Discussions: Per [facility] Triage Nursing notes reviewed. Limited review of prior medical records performed Vital Signs: reviewed and remarkable for no significant abnormalities Differential diagnosis: Differential diagnoses include major intracranial, cervical, spinal, thoracic, abdominal, pelvic and neurologic injury. Fracture, contusion, sprain, strain, laceration, abrasions included as well. ER treatment provided: See below Diagnostics interpreted by me include EKG and cardiac monitoring as listed below: -Cardiac Monitoring: An order was placed for continuous cardiac monitoring. The monitor shows a rate of 60 with sinus rhythm. -ECG: Sinus rhythm rate of 59 Normal axis No PVCs QTc 457 -Laboratory studies:Interpreted by me as stated above in MDM and shown below. Imaging studies: Xrays: As interpreted by me: Portable AP upright 1 view of the chest shows no focal M-Trate X-rays of the hip and pelvis show left hip fracture CTs show: CT the trauma was negative per radiology Procedures: None Critical Care: None Past Med/Surg History Problem List (Updated 05/14/25 @ 23:43 by Bert Denney DO) Alcohol abuse (Acute) Acute hyponatremia (Acute) Closed hip fracture (Acute) Hypoxia Alcohol withdrawal Intertrochanteric fracture of left femur Trauma Hearing loss in left ear Alcohol dependence Lyme arthritis Olecranon bursitis, right elbow GERD without esophagitis Emphysema lung Hyponatremia (Acute) Empyema of left pleural space (Acute) COPD (chronic obstructive pulmonary disease) (Chronic) Generalized headaches Infected sebaceous cyst Tobacco use Bilateral cataracts Pulmonary nodule, right (~08/2020) Aneurysm of infrarenal abdominal aorta 1st noted to 08/02/2020 -2.8 cm Cervical stenosis of spinal canal C3-C4 Hypercholesterolemia Elevated LFTs Hypertension Medical History History of colon polyps Hx of migraines GERD (gastroesophageal reflux disease) Chronic obstructive pulmonary disease Surgical History History of colonoscopy History of cataract surgery History of tooth extraction S/P robot-assisted surgical procedure History of nasal cauterization Family History Father Myocardial infarction Uncle Myocardial infarction Grandmother (Maternal) Myocardial infarction Mother Family history of diabetes mellitus Other Family history non-contributory No family history of adverse response to anesthesia Denies family history of Ovarian cancer Prostate cancer Breast cancer Colorectal cancer Social History Smoking Status: Current every day smoker Tobacco Type: Cigarettes Age Started Using Tobacco: 10; packs per day: 2; Cigarettes Per Day: 20 CIG DAILY *ADVISED; Second Hand Exposure: Yes; Do You Dip or Chew Tobacco: No; Hx Alcohol Use: Yes Alcohol type: beer Hx Substance Use: Yes Last Used Substance: Days (ago) Last Used Substance Other:: ADVISED Preferred Language: Georgian Communication Ability: Effective Visual Impairment: No Limitations Hearing Ability: Hard of Hearing Sign Language Instructor Required: No Beliefs That Will Affect Care: None marital status: Single Current Living Situation: Family Current Living Situation Comment: WITH MOTHER current occupational status: employed Feels Safe at Home: Yes Childhood Exposure to Second-Hand Smoke: Yes Diet: regular caffeine: Yes during the past year weight has: remained stable Dental Care, Regularly: Yes Physical Activity Frequency: Daily Seatbelt Use: always Sunscreen Use: No Assistive Devices: Denture - Upper, Denture - Lower and Glasses Allergies Allergies Allergy/AdvReac Type Severity Reaction Status Date / Time dextromethorphan Allergy Mild STRANGE Verified 04/14/25 14:20 [From Robitussin Cough and FEELING Cold CF] guaifenesin Allergy Mild STRANGE Verified 04/14/25 14:20 [From Robitussin Cough and FEELING Cold CF] phenylephrine Allergy Mild STRANGE Verified 04/14/25 14:20 [From Robitussin Cough and FEELING Cold CF] Home Meds Previous Rx's Medication Instructions Recorded atorvastatin 40 mg tablet 40 mg PO QPM #90 tabs 07/07/24 metoprolol succinate 50 mg 50 mg PO DAILY #90 tabs 07/07/24 tablet,extended release 24 hr albuterol sulfate 90 mcg/actuation 2 puff inhalation Q6H PRN 09/29/24 aerosol inhaler shortness of breath or wheezing #18 grams tiotropium bromide 2.5 2 puff inhalation DAILY #4 grams 01/18/25 mcg/actuation mist for inhalation (Spiriva Respimat) amlodipine 10 mg tablet 10 mg PO DAILY #30 tabs 03/31/25 cholecalciferol (vitamin D3) 25 25 mcg PO DAILY #30 caps 05/10/25 mcg (1,000 unit) capsule Results & Data (ED) Vital Signs Vital Signs - 24 hr 05/14/25 21:00 05/14/25 21:00 05/14/25 21:00 Temperature Pulse Rate 64 62 Pulse Rate [Apical] 64 Pulse Rhythm Regular Pulse Strength Pulse Strength [Apical] Respiratory Rate 20 20 Respiratory Effort / Characteristics Non-Labored Spontaneous Respiratory Depth Normal Respiratory Pattern Regular Blood Pressure Blood Pressure [Right Arm] 122/85 Blood Pressure Mean Blood Pressure Mean [Right Arm] 97 Blood Pressure Position Blood Pressure Position [Right Arm] Lying Pulse Oximetry 94 94 Oxygen Delivery Method Room Air Room Air Oxygen Flow Rate Sepsis Recent Fever Within 48 Hours Sepsis New/Unexplained Change in Mental Status Sepsis Action Taken by Nursing Pulse Oximetry Post Tiitration 05/14/25 21:10 05/14/25 21:10 05/14/25 22:00 Temperature 36.4 C L Pulse Rate 64 64 Pulse Rate [Apical] 59 L Pulse Rhythm Regular Pulse Strength Normal Pulse Strength [Apical] Normal Respiratory Rate 20 20 15 Respiratory Effort / Characteristics Non-Labored Spontaneous Non-Labored Spontaneous Respiratory Depth Normal Normal Respiratory Pattern Regular Regular Blood Pressure 122/85 122/85 Blood Pressure [Right Arm] 106/78 Blood Pressure Mean 97 Blood Pressure Mean [Right Arm] 87 Blood Pressure Position Lying Blood Pressure Position [Right Arm] Lying Pulse Oximetry 94 94 93 Oxygen Delivery Method Room Air Room Air Nasal Cannula Oxygen Flow Rate 0 2 Sepsis Recent Fever Within 48 Hours No Sepsis New/Unexplained Change in Mental Status N/A Sepsis Action Taken by Nursing No Action Required Pulse Oximetry Post Tiitration 05/14/25 22:24 05/14/25 22:35 05/14/25 23:00 Temperature Pulse Rate Pulse Rate [Apical] 57 L 55 L Pulse Rhythm Pulse Strength Pulse Strength [Apical] Respiratory Rate 30 H 22 Respiratory Effort / Characteristics Spontaneous Non-Labored Spontaneous Respiratory Depth Normal Respiratory Pattern Regular Regular Blood Pressure Blood Pressure [Right Arm] 113/74 98/73 L Blood Pressure Mean Blood Pressure Mean [Right Arm] 87 81 Blood Pressure Position Blood Pressure Position [Right Arm] Lying Lying Pulse Oximetry 88 L 95 96 Oxygen Delivery Method Nasal Cannula Nasal Cannula Nasal Cannula Oxygen Flow Rate 2 2 2 Sepsis Recent Fever Within 48 Hours Sepsis New/Unexplained Change in Mental Status Sepsis Action Taken by Nursing Pulse Oximetry Post Tiitration 97 05/14/25 23:30 Temperature Pulse Rate Pulse Rate [Apical] 59 L Pulse Rhythm Pulse Strength Pulse Strength [Apical] Respiratory Rate 18 Respiratory Effort / Characteristics Respiratory Depth Respiratory Pattern Blood Pressure Blood Pressure [Right Arm] 105/69 Blood Pressure Mean Blood Pressure Mean [Right Arm] 81 Blood Pressure Position Blood Pressure Position [Right Arm] Pulse Oximetry 97 Oxygen Delivery Method Nasal Cannula Oxygen Flow Rate 2 Sepsis Recent Fever Within 48 Hours Sepsis New/Unexplained Change in Mental Status Sepsis Action Taken by Nursing Pulse Oximetry Post Tiitration Laboratory Data 05/14/25 21:02 05/14/25 21:02 Lab Results 05/14/25 05/14/25 05/14/25 Range/Units 21:02 21:22 22:29 WBC 10.01 (4.8-10.8) K/ul RBC 4.10 L (4.70-6.10) M/uL Hgb 13.9 L (14.0-18.0) g/dL POC Hgb 14.6 (14.0-18.0) g/dl Hct 38.1 L (42.0-52.0) % POC Hct 43 (42-52) % MCV 92.9 (80.0-100.0) fL MCH 33.9 (25.0-34.0) pg MCHC 36.5 H (32.0-36.0) g/dL RDW Std Deviation 40.5 (36.4-46.3) fL RDW Coeff of Genevieve 11.9 (11.5-14.5) % Plt Count 260 (130-400) K/uL MPV 9.2 L (9.4-12.4) fL Immature Gran % (Auto) 0.5 % Neut % (Auto) 58.9 % Lymph % (Auto) 27.7 % Amelia % (Auto) 9.3 % Eos % (Auto) 2.5 % Baso % (Auto) 1.1 % Neut # (Auto) 5.90 (1.40-6.50) K/uL Lymph # (Auto) 2.77 (1.20-3.40) K/uL Amelia # (Auto) 0.93 H (0.11-0.59) K/uL Eos # (Auto) 0.25 (0.00-0.50) K/uL Baso # (Auto) 0.11 (0.00-0.20) K/uL Immature Gran # (Auto) 0.05 (0.01-0.20) K/uL PT 10.9 (9.0-12.0) Seconds INR 1.0 (0.9-1.1) APTT 30 (21-31) Seconds PTT Ratio 1.1 POC Sodium 124 L (135-144) mmol/L Sodium 121 L (136-145) mmol/L POC Potassium 3.9 (3.3-5.0) mmol/L Potassium 3.8 (3.5-5.1) mmol/L POC Chloride 87 L (101-112) mmol/L Chloride 88 L (98-107) mmol/L Carbon Dioxide 23 (21-32) mmol/L POC Total CO2 21 L (24-31) mmol/L Anion Gap 10 (3-11) POC Anion Gap 20.0 (16-25) mmol/L POC BUN 7 (7-18) mg/dl BUN 8 (6-23) mg/dl Creatinine 0.72 (0.6-1.4) mg/dl POC Creatinine 1.0 (0.6-1.3) mg/dl Est Cr Clr Drug Dosing 115.7 ml/min eGFR 101.39 BUN/Creatinine Ratio 11.1 (10-20) Glucose 99 (70-99(Fasting)) mg/dl POC Glucose (other) 95 (70-99) mg/dl Calcium 8.3 L (8.6-10.3) mg/dl POC Ioniz Calcium Tiesha 1.03 L (1.12-1.32) mmol/l Total Bilirubin 0.7 (0.2-1.0) mg/dl AST 36 (13-39) U/L ALT 35 (7-52) U/L Alkaline Phosphatase 124 H (34-104) U/L Total Protein 7.4 (6.0-8.3) gm/dl Albumin 4.0 (3.4-5.0) gm/dl Globulin 3.4 (2.5-4.0) gm/dl Albumin/Globulin Ratio 1.2 (0.9-2) Lipase 17 (11-82) U/L Vitamin B12 226 (180-914) pg/ml Ethyl Alcohol mg/dL 206.6 H (<10.0) mg/dl Administered Medications Lactated Ringer's (Lr) 1,000 mls @ 80 mls/hr IV .[id number] [facility] Stop: 05/15/25 10:59 Last Admin: 05/14/25 23:28 Dose: 80 mls/hr Documented By: AN Morphine Sulfate (Morphine Sulfate 4 Mg/Ml 1 Ml Carp\Vial) 2 - 4 mg IV Q1H PRN PRN Reason: Pain Stop: 05/28/25 20:57 Last Admin: 05/14/25 21:59 Dose: 4 mg Documented By: [facility] [place] Discontinued Medications Thiamine HCl 100 mg/ Syringe 10 mls @ 2 mls/min IV NOW STA Stop: 05/14/25 21:49 Last Admin: 05/14/25 23:29 Dose: 2 mls/min Documented By: AN Folic Acid 1 mg/ Syringe 10 mls @ 5 mls/min IV NOW STA Stop: 05/14/25 21:46 Last Admin: 05/14/25 23:29 Dose: 5 mls/min Documented By: AN Acetaminophen (Ofirmev) 1,000 mg in 100 mls @ 400 mls/hr IV NOW STA Stop: 05/14/25 22:44 Last Admin: 05/14/25 23:29 Dose: 400 mls/hr Documented By: AN Ioversol (Optiray 320 100ml) 90 ml IV ONCE ONE Stop: 05/14/25 21:27 Last Admin: 05/14/25 21:27 Dose: 90 ml Documented By: Eamon Imaging Data Radiologist's Impression: Chest X-Ray 05/14/25 20:57 Exam(s): XR CXR 1 VIEW EXAM: XR Chest, 1 View CLINICAL HISTORY: Trauma. TECHNIQUE: Frontal view of the chest. COMPARISON: No relevant prior studies available. FINDINGS: Lungs: No definite pulmonary contusive injury or focal consolidation. Pleural space: No significant abnormality. No pneumothorax. No large pleural effusion. Heart: No significant abnormality. No cardiomegaly. Mediastinum: No evidence for mediastinal widening. No tracheal deviation. Bones/joints: No definite acute osseous traumatic injury. 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 IMPRESSION: No radiographic evidence for significant acute traumatic injury involving the chest/thorax. Electronically signed by: Manpreet Melchor MD 05/14/25 22:03 PM Hip/Pelvis X-Ray 05/14/25 20:57 Exam(s): XR HIP + PELVIS, 1 view EXAM: XR Left Hip With Pelvis When Performed, 1 View CLINICAL HISTORY: fall. TECHNIQUE: Frontal view of the left hip with pelvis when performed. COMPARISON: No relevant prior studies available. FINDINGS: Bones/joints: Comminuted displaced left intertrochanteric femur fracture. The left femoral head remains in the acetabulum. The pelvic bones are intact. No dislocation. Soft tissues: No significant abnormality. Vasculature: Regional arterial calcification noted. IMPRESSION: Comminuted displaced left intertrochanteric femur fracture. The left femoral head remains in the acetabulum. Electronically signed by: Manpreet Melchor MD 05/14/25 22:01 PM Abdomen/Pelvis CT 05/14/25 20:58 Exam(s): CT ABDOMEN + PELVIS With Contrast IV Amt: 90 ml optiray 320 EXAM: CT Abdomen and Pelvis With Intravenous Contrast CLINICAL HISTORY: Trauma. TECHNIQUE: Axial computed tomography images of the abdomen and pelvis with intravenous contrast. CTDI is 62.75 mGy and DLP is 4670.68 mGy-cm. Automated exposure control was utilized for the study. A dose lowering technique was utilized adhering to the principles of ALARA. CONTRAST: Patient received 90 ml optiray 320 of IV contrast COMPARISON: No relevant prior studies available. FINDINGS: Lung bases: For findings regarding the lung bases, please see the CT report of the chest performed concurrently. ABDOMEN: Liver: The liver is intact without evidence for acute traumatic injury. Gallbladder and bile ducts: Dependent subcentimeter cholelithiasis noted in the gallbladder. No ductal dilation. Pancreas: No significant abnormality. No mass. No ductal dilation. Spleen: The spleen is intact without evidence for acute traumatic injury. Adrenals: No significant abnormality. No mass. Kidneys and ureters: The kidneys appear intact without evidence for acute traumatic injury. No hydronephrosis. Stomach and bowel: No evidence for acute traumatic bowel injury. No bowel obstruction. No definite significant asymmetric mucosal thickening. PELVIS: Appendix: Not evaluated. Bladder: The bladder is prominently distended with fluid with some lobulation posteriorly. No evidence for traumatic injury. Reproductive: Unremarkable as visualized. ABDOMEN and PELVIS: Intraperitoneal space: No significant abnormality. No free air. No significant fluid collection. Retroperitoneal space: No evidence for retroperitoneal hematoma. Bones/joints: There is a displaced left intertrochanteric proximal femur fracture. The left femoral head remains in the acetabulum. The lumbar spine, pelvic bones and proximal right femur appear intact. No dislocation. Soft tissues: Intramuscular fat stranding noted about the femur fracture. No definite well-defined hematoma. No other significant acute traumatic soft tissue injury identified. Vasculature: The aorta is normal in caliber without evidence for traumatic injury. No dissection. No evidence for acute periaortic abnormality. Atherosclerotic disease. Lymph nodes: No significant abnormality. No enlarged lymph nodes. IMPRESSION: 1. There is a displaced left intertrochanteric proximal femur fracture. The left femoral head remains in the acetabulum. Intramuscular and soft tissue edema surrounding the femur fracture. No well-defined hematoma. No subcutaneous emphysema. 2. No other significant acute traumatic injury to the abdomen or pelvis with incidental findings, as noted above. Electronically signed by: Manpreet Melchor MD 05/14/25 22:[address] 05/14/25 20:58 Exam(s): CT C SPINE EXAM: CT Cervical Spine Without Intravenous Contrast CLINICAL HISTORY: Trauma. TECHNIQUE: Axial computed tomography images of the cervical spine without intravenous contrast. CTDI is 25.06 mGy and DLP is 529.64 mGy-cm. Automated exposure control was utilized for the study. A dose lowering technique was utilized adhering to the principles of ALARA. COMPARISON: No relevant prior studies available. FINDINGS: Vertebrae: The vertebral bodies are intact without acute osseous traumatic injury. No anterolisthesis or retrolisthesis is identified. The facet joints are well aligned without subluxation or dislocation. The pedicles, transverse processes and spinous processes are intact. Bilateral chronic facet hypertrophic arthropathy incidentally noted. Discs/spinal canal/neural foramina: Incidental chronic appearing multilevel disc spondylosis noted with narrowing and marginal hypertrophic changes. No significant acute central canal stenosis identified. Soft tissues: No significant abnormality. Vasculature: Extensive atherosclerotic calcification involving the carotid bifurcations, [id number], with apparent near transluminal calcification suggested. Lung apices: The included lung apices demonstrate no evidence for acute traumatic injury. IMPRESSION: No acute osseous traumatic injury or significant abnormal alignment involving the cervical spine. Electronically signed by: Manpreet Melchor MD 05/14/25 22:[address] 05/14/25 20:58 Exam(s): CT CHEST With Contrast IV Amt: 90 ml optiray 320 EXAM: CT Chest With Intravenous Contrast CLINICAL HISTORY: Trauma. TECHNIQUE: Axial computed tomography images of the chest with intravenous contrast. CTDI is 62.75 mGy and DLP is 4670.68 mGy-cm. Automated exposure control was utilized for the study. A dose lowering technique was utilized adhering to the principles of ALARA. CONTRAST: Patient received 90 ml optiray 320 of IV contrast COMPARISON: Noncontrast CT chest 04/02/2024 FINDINGS: Lungs: No pulmonary contusive injury. Similar peripheral cystic subcentimeter honeycombing along the periphery of the left upper lobe in the region of the rib defect. Curvilinear changes of the right lung base. Pleural space: No pleural effusion or pneumothorax. Heart: Moderate coronary artery calcification. No pericardial effusion. Cardiac chambers are normal in size. Mediastinum: Small hiatal hernia. 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 No acute osseous traumatic injury. Similar chronic anterior wedging from C7 through T9 levels resulting in slightly accentuated kyphosis. Soft tissues: Similar subdermal cyst in the dorsal midline subcutaneous fat, not significantly altered in size measuring 1.7 x 3.2 cm. No significant overlying acute traumatic soft tissue abnormality. Vasculature: The thoracic aorta is normal in caliber without dissection or aneurysm. Mild atherosclerotic calcification. Lymph nodes: No significant abnormality. No enlarged lymph nodes. IMPRESSION: No significant acute traumatic injury involving the chest/thorax. Chronic underlying findings, as noted above. Electronically signed by: aMnpreet Melchor MD 05/14/25 22:[address] 05/14/25 20:58 Exam(s): CT HEAD Without Contrast EXAM: CT Head Without Intravenous Contrast CLINICAL HISTORY: trauma. TECHNIQUE: Axial computed tomography images of the head/brain without intravenous contrast. CTDI is 62.75 mGy and DLP is 4670.68 mGy-cm. Automated exposure control was utilized for the study. A dose lowering technique was utilized adhering to the principles of ALARA. COMPARISON: No relevant prior studies available. FINDINGS: Limitations: There is motion artifact, which degrades image quality on multiple image slices. Brain: Accounting for mild motion artifact, there is no intracranial hemorrhage. No significant mass effect. No cortical infarct. There are a few areas of decreased attenuation in the deep cerebral white matter consistent with mild small vessel ischemic/degenerative changes. The cerebral and cerebellar sulci are mildly prominent consistent with mild brain atrophy. Ventricles: No significant abnormality. No ventriculomegaly. Bones/joints: No significant abnormality. No acute fracture. Soft tissues: No significant overlying soft tissue traumatic injury identified. No radiopaque foreign body or subcutaneous emphysema. Vasculature: Atherosclerotic disease. Sinuses: Mucosal thickening and opacification of several ethmoid air cells in the right sphenoid sinus. No air-fluid levels. Mastoid air cells: Unremarkable as visualized. No mastoid effusion. IMPRESSION: No acute intracranial process identified. Electronically signed by: Manpreet Melchor MD 05/14/25 21:55 PM Discharge Plan Visit Data Chief Complaint: Trauma Stated Complaint: FALL, L HIP PAIN ED Provider: Bert Denney Discharge Problem: Closed hip fracture, Acute hyponatremia, Alcohol abuse Condition: Fair Forms Stand Alone Forms: [facility] Prescriptions Prescriptions: No Action metoprolol succinate 50 mg tablet extended release 24 hr 50 mg PO DAILY Qty: 90 2RF Patient Comments: Qam atorvastatin 40 mg tablet 40 mg PO QPM Qty: 90 2RF albuterol sulfate 90 mcg/actuation HFA aerosol inhaler 2 puff inhalation Q6H PRN (Reason: shortness of breath or wheezing) Qty: 18 3RF Spiriva Respimat 2.5 mcg/actuation mist 2 puff inhalation DAILY Qty: 4 3RF Patient Comments: TAKES PRN SOB cholecalciferol (vitamin D3) 25 mcg (1,000 unit) capsule 25 mcg PO DAILY Qty: 30 0RF amlodipine 10 mg tablet 10 mg PO DAILY Qty: 30 2RF Referrals Referrals: Manpreet Casillas CRNP [Primary Care Provider] - Discharge Problem: Closed hip fracture Qualifiers: Encounter type: initial encounter Laterality: unspecified laterality Qualified Code(s): S72.009A - Fracture of unspecified part of neck of unspecified femur, initial encounter for closed fracture
[2025-05-14] MEDS: OPTIRAY 320 100ml IV ONE (21:27)
[2025-05-14 21:48] LABS: Hematocrit (blood only) 38.1 % (42.0-52.0); Hemoglobin 13.9 g/dL (14.0-18.0); Immature Granulocytes # (auto) 0.05 K/uL (0.01-0.20); Immature Granulocytes % (auto) 0.5 %; Mean Corpuscular Hemoglobin 33.9 pg (25.0-34.0); Mean Corpuscular Volume 92.9 fL (80.0-100.0); Platelet Count 260 K/uL (130-400); RDW Standard Deviation 40.5 fL (36.4-46.3); Red Blood Count 4.10 M/uL (4.70-6.10); White Blood Count 10.01 K/ul (4.8-10.8)
[2025-05-14 21:52] LABS: Alanine Aminotransferase 35.0 U/L (7-52); Albumin Globulin Ratio 1.2 (0.9-2); Albumin Level 4.0 gm/dl (3.4-5.0); Alkaline Phosphatase 124.0 U/L (34-104); Anion Gap 10.0 (3-11); Bilirubin,Total 0.7 mg/dl (0.2-1.0); Blood Urea Nitrogen 8.0 mg/dl (6-23); Calcium 8.3 mg/dl (8.6-10.3); Carbon Dioxide 23.0 mmol/L (21-32); Chloride 88.0 mmol/L (98-107); Creatinine Clr Calc Pharmacy 115.7 ml/min; Globulin 3.4 gm/dl (2.5-4.0); Glucose 99.0 mg/dl (70-99(Fasting)); Lipase 17.0 U/L (11-82); Potassium 3.8 mmol/L (3.5-5.1); Sodium 121.0 mmol/L (136-145); Total Protein 7.4 gm/dl (6.0-8.3)
--- NOTE | 2025-05-14 21:55 | CT Scan Report ---
Exam(s): CT HEAD Without Contrast EXAM: CT Head Without Intravenous Contrast CLINICAL HISTORY: trauma. TECHNIQUE: Axial computed tomography images of the head/brain without intravenous contrast. CTDI is 62.75 mGy and DLP is 4670.68 mGy-cm. Automated exposure control was utilized for the study. A dose lowering technique was utilized adhering to the principles of ALARA. COMPARISON: No relevant prior studies available. FINDINGS: Limitations: There is motion artifact, which degrades image quality on multiple image slices. Brain: Accounting for mild motion artifact, there is no intracranial hemorrhage. No significant mass effect. No cortical infarct. There are a few areas of decreased attenuation in the deep cerebral white matter consistent with mild small vessel ischemic/degenerative changes. The cerebral and cerebellar sulci are mildly prominent consistent with mild brain atrophy. Ventricles: No significant abnormality. No ventriculomegaly. Bones/joints: No significant abnormality. No acute fracture. Soft tissues: No significant overlying soft tissue traumatic injury identified. No radiopaque foreign body or subcutaneous emphysema. Vasculature: Atherosclerotic disease. Sinuses: Mucosal thickening and opacification of several ethmoid air cells in the right sphenoid sinus. No air-fluid levels. Mastoid air cells: Unremarkable as visualized. No mastoid effusion. IMPRESSION: No acute intracranial process identified. Electronically signed by: Manpreet Melchor MD 05/14/25 21:55 PM
[2025-05-14] MEDS: MoRPHine SULFATE 4 MG/ML 1 ML CARP\\VIAL IV PRN (21:59)
--- NOTE | 2025-05-14 22:02 | XRay Report ---
Exam(s): XR HIP + PELVIS, 1 view EXAM: XR Left Hip With Pelvis When Performed, 1 View CLINICAL HISTORY: fall. TECHNIQUE: Frontal view of the left hip with pelvis when performed. COMPARISON: No relevant prior studies available. FINDINGS: Bones/joints: Comminuted displaced left intertrochanteric femur fracture. The left femoral head remains in the acetabulum. The pelvic bones are intact. No dislocation. Soft tissues: No significant abnormality. Vasculature: Regional arterial calcification noted. IMPRESSION: Comminuted displaced left intertrochanteric femur fracture. The left femoral head remains in the acetabulum. Electronically signed by: Manpreet Melchor MD 05/14/25 22:01 PM
--- NOTE | 2025-05-14 22:02 | CT Scan Report ---
Exam(s): CT CHEST With Contrast IV Amt: 90 ml optiray 320 EXAM: CT Chest With Intravenous Contrast CLINICAL HISTORY: Trauma. TECHNIQUE: Axial computed tomography images of the chest with intravenous contrast. CTDI is 62.75 mGy and DLP is 4670.68 mGy-cm. Automated exposure control was utilized for the study. A dose lowering technique was utilized adhering to the principles of ALARA. CONTRAST: Patient received 90 ml optiray 320 of IV contrast COMPARISON: Noncontrast CT chest 04/02/2024 FINDINGS: Lungs: No pulmonary contusive injury. Similar peripheral cystic subcentimeter honeycombing along the periphery of the left upper lobe in the region of the rib defect. Curvilinear changes of the right lung base. Pleural space: No pleural effusion or pneumothorax. Heart: Moderate coronary artery calcification. No pericardial effusion. Cardiac chambers are normal in size. Mediastinum: Small hiatal hernia. 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 No acute osseous traumatic injury. Similar chronic anterior wedging from C7 through T9 levels resulting in slightly accentuated kyphosis. Soft tissues: Similar subdermal cyst in the dorsal midline subcutaneous fat, not significantly altered in size measuring 1.7 x 3.2 cm. No significant overlying acute traumatic soft tissue abnormality. Vasculature: The thoracic aorta is normal in caliber without dissection or aneurysm. Mild atherosclerotic calcification. Lymph nodes: No significant abnormality. No enlarged lymph nodes. IMPRESSION: No significant acute traumatic injury involving the chest/thorax. Chronic underlying findings, as noted above. Electronically signed by: Manpreet Melchor MD 05/14/25 22:01 PM
--- NOTE | 2025-05-14 22:03 | XRay Report ---
Exam(s): XR CXR 1 VIEW EXAM: XR Chest, 1 View CLINICAL HISTORY: Trauma. TECHNIQUE: Frontal view of the chest. COMPARISON: No relevant prior studies available. FINDINGS: Lungs: No definite pulmonary contusive injury or focal consolidation. Pleural space: No significant abnormality. No pneumothorax. No large pleural effusion. Heart: No significant abnormality. No cardiomegaly. Mediastinum: No evidence for mediastinal widening. No tracheal deviation. Bones/joints: No definite acute osseous traumatic injury. 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 IMPRESSION: No radiographic evidence for significant acute traumatic injury involving the chest/thorax. Electronically signed by: Manpreet Melchor MD 05/14/25 22:03 PM
--- NOTE | 2025-05-14 22:06 | CT Scan Report ---
Exam(s): CT ABDOMEN + PELVIS With Contrast IV Amt: 90 ml optiray 320 EXAM: CT Abdomen and Pelvis With Intravenous Contrast CLINICAL HISTORY: Trauma. TECHNIQUE: Axial computed tomography images of the abdomen and pelvis with intravenous contrast. CTDI is 62.75 mGy and DLP is 4670.68 mGy-cm. Automated exposure control was utilized for the study. A dose lowering technique was utilized adhering to the principles of ALARA. CONTRAST: Patient received 90 ml optiray 320 of IV contrast COMPARISON: No relevant prior studies available. FINDINGS: Lung bases: For findings regarding the lung bases, please see the CT report of the chest performed concurrently. ABDOMEN: Liver: The liver is intact without evidence for acute traumatic injury. Gallbladder and bile ducts: Dependent subcentimeter cholelithiasis noted in the gallbladder. No ductal dilation. Pancreas: No significant abnormality. No mass. No ductal dilation. Spleen: The spleen is intact without evidence for acute traumatic injury. Adrenals: No significant abnormality. No mass. Kidneys and ureters: The kidneys appear intact without evidence for acute traumatic injury. No hydronephrosis. Stomach and bowel: No evidence for acute traumatic bowel injury. No bowel obstruction. No definite significant asymmetric mucosal thickening. PELVIS: Appendix: Not evaluated. Bladder: The bladder is prominently distended with fluid with some lobulation posteriorly. No evidence for traumatic injury. Reproductive: Unremarkable as visualized. ABDOMEN and PELVIS: Intraperitoneal space: No significant abnormality. No free air. No significant fluid collection. Retroperitoneal space: No evidence for retroperitoneal hematoma. Bones/joints: There is a displaced left intertrochanteric proximal femur fracture. The left femoral head remains in the acetabulum. The lumbar spine, pelvic bones and proximal right femur appear intact. No dislocation. Soft tissues: Intramuscular fat stranding noted about the femur fracture. No definite well-defined hematoma. No other significant acute traumatic soft tissue injury identified. Vasculature: The aorta is normal in caliber without evidence for traumatic injury. No dissection. No evidence for acute periaortic abnormality. Atherosclerotic disease. Lymph nodes: No significant abnormality. No enlarged lymph nodes. IMPRESSION: 1. There is a displaced left intertrochanteric proximal femur fracture. The left femoral head remains in the acetabulum. Intramuscular and soft tissue edema surrounding the femur fracture. No well-defined hematoma. No subcutaneous emphysema. 2. No other significant acute traumatic injury to the abdomen or pelvis with incidental findings, as noted above. Electronically signed by: Manpreet Melchor MD 05/14/25 22:05 PM
--- NOTE | 2025-05-14 22:09 | CT Scan Report ---
Exam(s): CT C SPINE EXAM: CT Cervical Spine Without Intravenous Contrast CLINICAL HISTORY: Trauma. TECHNIQUE: Axial computed tomography images of the cervical spine without intravenous contrast. CTDI is 25.06 mGy and DLP is 529.64 mGy-cm. Automated exposure control was utilized for the study. A dose lowering technique was utilized adhering to the principles of ALARA. COMPARISON: No relevant prior studies available. FINDINGS: Vertebrae: The vertebral bodies are intact without acute osseous traumatic injury. No anterolisthesis or retrolisthesis is identified. The facet joints are well aligned without subluxation or dislocation. The pedicles, transverse processes and spinous processes are intact. Bilateral chronic facet hypertrophic arthropathy incidentally noted. Discs/spinal canal/neural foramina: Incidental chronic appearing multilevel disc spondylosis noted with narrowing and marginal hypertrophic changes. No significant acute central canal stenosis identified. Soft tissues: No significant abnormality. Vasculature: Extensive atherosclerotic calcification involving the carotid bifurcations, [id number], with apparent near transluminal calcification suggested. Lung apices: The included lung apices demonstrate no evidence for acute traumatic injury. IMPRESSION: No acute osseous traumatic injury or significant abnormal alignment involving the cervical spine. Electronically signed by: Manpreet Melchor MD 05/14/25 22:09 PM
[2025-05-14 22:11] LABS: INR 1.0 (0.9-1.1); Partial Thromboplastin Time 30 Seconds (21-31); Prothrombin Time 10.9 Seconds (9.0-12.0)
--- NOTE | 2025-05-14 22:20 | History & Physical Report ---
Date of Service May 14, 2025 Assessment & Plan (1) Trauma: (2) Intertrochanteric fracture of left femur: (3) Alcohol withdrawal: (4) Hyponatremia: (5) Hypoxia: Plan Patient is a 65-year-old male with a past medical history of alcohol use, tobacco use, GERD, COPD, HTN. Patient presented via EMS as a trauma alert after he slipped on ice at home. Patient found to have commuted displaced left intertrochanteric femur fracture, otherwise diagnostic imaging negative for acute traumatic changes. Patient also with sodium of 121 suspect infected to be beer potomania. patient is agreeable to go through alcohol detox while he is admitted as he typically drinks 8-10 beers per day for the past few years, no signs of withdrawal on admission and treating with Valium. #trauma/left femur fracture - Hip XR showed commuted displaced left intertrochanteric femur fracture. Hemodynamically and neurovascularly intact at time of admission. - UA ordered - ortho consulted - possible surgical management - n.p.o. after midnight, IVF with LR @ 80 ml/hr x1 - hip fx order set - Lee catheter ordered, IC, sacral wound precautions, etc. - Type and screen ordered with AM labs - Revised cardiac risks index = 0 - IV Tylenol prn, Toradol prn, and Morphine 2/4 (for pain not relieved by #1 and 2) - Zofran as needed - will likely need PT/OT evals prior to discharge; defer on admission until after surgical management determined #alcohol withdrawal - Typically drinks 8-10 beers/day, last drink ~ 05/14. No symptoms of withdrawal on admission and no reported history of severe withdrawal or seizures. - ETOH level ordered - AWSS protocol - Thiamine IV 100mg and folic acid 1mg IV QAM; first dose on admission - IV Valium prn for low risk protocol, no acute indication ofr loading dose at time of admission - seizure precautions #hyponatremia - 2/2 beer potomania. Asymptomatic on admission with NA 121. - IVF as above - sodium chloride 1G tabs BID ordered - seizure precautions - trend BMP #hypoxia - 88% on RA after IV opioids in ED. CXR and chest CT without acute traumatic changes. - incentive spirometry - oxygen prn #anemia - macrocytic hyperchromic. - b12 ordered - trend CBC #nicotine use - 1.5 ppd cigarettes. - NicoDerm patch ordered - encourage smoking cessation #COPD - denies oxygen use at baseline. Stable, no acute exacerbation. - continue home inhalers #HTN/HLD - continue home metoprolol, amlodipine, statin VTE ppx: SCDs, low risk and possible surgical management Dispo: PCU as patient was trauma alert Admission and Anticipated Discharge Date Admission Date: 05/14/25 History of Present Illness Chief Complaint: trauma Primary Care Provider: PITA Valiente Patient is a 65-year-old male with a past medical history of alcohol use, tobacco use, GERD, COPD, HTN. Patient presented via EMS as a trauma alert after he slipped on ice at home. Patient found to have commuted displaced left intertrochanteric femur fracture, otherwise diagnostic imaging negative for acute traumatic changes. Patient also with sodium of 121 suspect infected to be beer potomania. patient is agreeable to go through alcohol detox while he is admitted as he typically drinks 8-10 beers per day for the past few years, no signs of withdrawal on admission and treating with Valium. Patient seen at bedside. He is alert and oriented x 3 however appears mildly confused with acute intoxication, EtOH level ordered. Patient stated he slipped on ice at home falling onto his left hip, denies head strike or loss of consciousness. He is feeling well at bedside other than 5/10 left hip pain, receiving morphine 2 mg IV with nursing staff actively. He denies any dizziness, lightheadedness, chest pain, shortness of breath, abdominal pain, nausea, vomiting, numbness, tingling, urinary symptoms. Patient is agreeable to admission and possible surgical management for fracture. Patient endorses smoking 1.5 packs/day of cigarettes and occasional marijuana use (denies daily use). Patient also endorses chronic alcohol use for several years in which he typically drinks 8-10 beers per day, last drink was prior to arrival 05/14. He stated he drank less today than his usual amount. He stated he has gone weeks before without drinking and denies any withdrawal symptoms or seizures during that time. He is agreeable to detox from alcohol during inpatient stay. Patient denies any oxygen use, O2 dropped to 88% on room air after receiving morphine in the ED. He is due for his evening medications. He wishes to be full code. Allergies Allergy/AdvReac Type Severity Reaction Status Date / Time dextromethorphan Allergy Mild STRANGE Verified 04/14/25 14:20 [From Robitussin Cough and FEELING Cold CF] guaifenesin Allergy Mild STRANGE Verified 04/14/25 14:20 [From Robitussin Cough and FEELING Cold CF] phenylephrine Allergy Mild STRANGE Verified 04/14/25 14:20 [From Robitussin Cough and FEELING Cold CF] Home Medications Medication Instructions Recorded Confirmed Type atorvastatin 40 mg tablet 40 mg PO QPM #90 tabs 07/07/24 05/15/25 Rx metoprolol succinate 50 mg 50 mg PO DAILY #90 tabs 07/07/24 05/15/25 Rx tablet,extended release 24 hr albuterol sulfate 90 mcg/actuation 2 puff inhalation Q6H PRN 09/29/24 05/15/25 Rx aerosol inhaler shortness of breath or wheezing #18 grams tiotropium bromide 2.5 2 puff inhalation DAILY #4 grams 01/18/25 05/15/25 Rx mcg/actuation mist for inhalation (Spiriva Respimat) amlodipine 10 mg tablet 10 mg PO DAILY #30 tabs 03/31/25 05/15/25 Rx cholecalciferol (vitamin D3) 25 25 mcg PO DAILY #30 caps 05/10/25 05/15/25 Rx mcg (1,000 unit) capsule Past Med/Surg History Problem List (Updated 05/15/25 @ 10:21 by Wyatt Rojo DO) Alcohol intoxication (Acute) Pseudohyponatremia (Acute) Chronic hyponatremia (Acute) Alcohol use disorder, moderate, dependence (Chronic) Nicotine use disorder (Chronic) Panlobular emphysema (Chronic) Intertrochanteric fracture of left femur (Acute) Trauma (Acute) Hearing loss in left ear GERD without esophagitis (Chronic) Generalized headaches Bilateral cataracts Pulmonary nodule, right (~08/2020) Aneurysm of infrarenal abdominal aorta 1st noted to 08/02/2020 -2.8 cm Cervical stenosis of spinal canal C3-C4 Hypercholesterolemia Hypertension Medical History (Updated 05/15/25 @ 10:21 by Wyatt Rojo DO) Olecranon bursitis, right elbow Lyme arthritis Infected sebaceous cyst Empyema of left pleural space History of colon polyps Hx of migraines GERD (gastroesophageal reflux disease) Chronic obstructive pulmonary disease Surgical History History of colonoscopy History of cataract surgery RT/LEFT History of tooth extraction S/P robot-assisted surgical procedure S/p Left robot assisted VATS History of nasal cauterization Family History Father Myocardial infarction Uncle Myocardial infarction Grandmother (Maternal) Myocardial infarction Mother Family history of diabetes mellitus Other Family history non-contributory No family history of adverse response to anesthesia Denies family history of Ovarian cancer Prostate cancer Breast cancer Colorectal cancer Social History Smoking Status: Current every day smoker Tobacco Type: Cigarettes Age Started Using Tobacco: 10; packs per day: 2; Cigarettes Per Day: 20 CIG DAILY *ADVISED; Second Hand Exposure: Yes; Do You Dip or Chew Tobacco: No; Hx Alcohol Use: Yes Alcohol type: beer Hx Substance Use: Yes Last Used Substance: Days (ago) Last Used Substance Other:: ADVISED Preferred Language: Irish Communication Ability: Effective Visual Impairment: No Limitations Hearing Ability: Hard of Hearing [employer] Required: No Beliefs That Will Affect Care: None marital status: Single Current Living Situation: Alone Current Living Situation Comment: Alone, in trailer current occupational status: employed Feels Safe at Home: Yes Childhood Exposure to Second-Hand Smoke: Yes Diet: regular caffeine: Yes during the past year weight has: remained stable Dental Care, Regularly: Yes Physical Activity Frequency: Daily Seatbelt Use: always Sunscreen Use: No Assistive Devices: Denture - Upper, Denture - Lower and Glasses Review of Systems Review of Systems: see HPI Physical Exam Physical Exam: The patient is awake, alert and oriented 3, well developed and well nourished, normocephalic and atraumatic, in no acute distress. Non-toxic appearing. HEENT- EOMI, mucous membranes dry. Hearing grossly intact. Heart-normal S1 and S2. No murmurs, rubs or gallops. Lungs-clear bilaterally, no respiratory distress, no accessory muscle use. Abdomen-normal bowel sounds and soft. No ascites noted. Non-tender. Extremities- no clubbing, cyanosis, or edema. L LE neurovascularly intact. Psychiatric-normal affect. Results & Data Results & Data Vital Signs (Past 12 Hours) Vital Signs Temp Pulse Pulse Resp BP BP Pulse Ox 05/14/25 21:10 36.4 C L 64 20 122/85 94 05/14/25 21:10 64 20 122/85 94 05/14/25 21:00 62 05/14/25 21:00 64 20 94 05/14/25 21:00 64 20 122/85 94 O2 Del Method O2 Flow Rate 05/14/25 21:10 Room Air 0 05/14/25 21:10 Room Air 05/14/25 21:00 05/14/25 21:00 Room Air 05/14/25 21:00 Room Air Laboratory Results reviewed cbc, cmp, lipase, pt/inr ordered ua, etoh, b12 level Diagnostic Findings reviewed head ct, chest ct, cervical spine ct, abd pelvis ct, hip xr, cxr Medications Administered ed - thiamine 100 mg IV, folic acid 1mg IV, morphine 2mg IV ECG Additional Comments: ordered Code Status & VTE Plan Code Status full code VTE Prophylaxis Plan VTE Prophylaxis will be ordered: Yes Supervising Physician Co-Signing Physician Notes Attending addendum: I have physically seen this patient, have supervised the RAMÓN's activities, and agree with the H&P unless as otherwise noted. Assessment and Plan: The patient is a 65-year-old male with a past medical history including alcohol use, tobacco use, GERD, COPD, and hypertension. He presents to the emergency department via EMS as a trauma alert after he slipped on ice at home and developed immediate left hip pain. Workup in the emergency department included x-ray showing a comminuted displaced closed left intertrochanteric femur fracture. Significant laboratories revealed sodium of 121. Patient is aware he will need to go through alcohol detox: [facility], reported he drinks typically 8- 10 beers per day for the past few years. Close left femur fracture/trauma alert- Hip x-ray shows a comminuted displaced left closed intertrochanteric femur fracture. N.p.o. after midnight Orthopedic surgery consulted LR at 80 mL/h Hip fracture order set Type and screen ordered Acetaminophen 1 g IV every 8 hours as needed for mild pain or fever Toradol 15 mg IV every 6 hours as needed for moderate pain Morphine sulfate 2 mg IV every 4 hours as needed for severe pain Zofran 4 mg IV every 6 hours as needed Alcohol withdrawal/alcohol abuse- Patient drinks 8-10 beers daily, last drink around 8:00 in the evening prior to arrival to the ED Alcohol level ordered AWSS protocol with IV Valium Thiamine 100 mg IV daily Folic acid 1 mg IV daily Seizure precautions Hyponatremia- - Combination of beer Poto johnathan and dehydration IV fluids as noted above Serum chloride 1 g p.o. twice daily Serial BMP and magnesium levels Hypoxia- 88% on room air Incentive spirometry Likely secondary to pain and pain medications and decreased inspirations PG Care Time/CCT Total # of Minutes Spent Total Time Spent with Patient: Total time spent is greater than 50% in coordination of care (as documented) at patient's floor/unit and/or counseling patient: Coding Level of Care Code 01001 INT INP/OBS CARE MIN Diagnoses Trauma T14.90XA Intertrochanteric fracture of left femur S72.142A Alcohol withdrawal F10.939 Hyponatremia E87.1 Hypoxia R09.02
[2025-05-14] MEDS: LACTATED RINGER'S 1,000 ML IV SCH (23:28)
[2025-05-14] MEDS: THIAMINE HCL 100 MG in SYRINGE 9 ML IV STA (23:29)
[2025-05-14] MEDS: FOLIC ACID 1 MG in SYRINGE 9.8 ML IV STA (23:29)
[2025-05-14] MEDS: ACETAMINOPHEN 1,000 MG/100 ML VIAL IV STA (23:29)
[2025-05-15] MEDS: PANTOprazole 40 MG/10 ML SYR IV ONE (01:03)
[2025-05-15] MEDS ORDERED: ONDANSETRON INJ 2 MG/ML 2 ML VIAL IV PRN (03:16)
[2025-05-15] MEDS ORDERED: POLYETHYLENE (MIRALAX) 17 GM PACK PO PRN (03:16)
[2025-05-15] MEDS ORDERED: MAGNESIUM HYDROXIDE SUSP 30 ML UDC PO PRN (03:16)
[2025-05-15] MEDS ORDERED: DOCUSATE SODIUM 100 MG CAP PO PRN (03:16)
[2025-05-15] MEDS ORDERED: ALBUTEROL HFA 8 GM INHALER INH PRN (03:16)
[2025-05-15] MEDS ORDERED: NALOXONE HCL 0.4 MG/1 ML VIAL/CARP IV PRN (03:16)
[2025-05-15 03:52] LABS: Appearance Urine Clear (Clear); Glucose Urine UA Negative (Negative)
[2025-05-15] MEDS: SODIUM CHLORIDE 1 GM TABLET PO SCH ×2 (04:33→09:39)
[2025-05-15 04:59] LABS: Hematocrit (blood only) 33.9 % (42.0-52.0); Hemoglobin 12.2 g/dL (14.0-18.0); Immature Granulocytes # (auto) 0.04 K/uL (0.01-0.20); Immature Granulocytes % (auto) 0.3 %; Mean Corpuscular Hemoglobin 33.2 pg (25.0-34.0); Mean Corpuscular Volume 92.1 fL (80.0-100.0); Platelet Count 253 K/uL (130-400); RDW Standard Deviation 41.1 fL (36.4-46.3); Red Blood Count 3.68 M/uL (4.70-6.10); White Blood Count 11.87 K/ul (4.8-10.8)
[2025-05-15 05:15] LABS: Alanine Aminotransferase 33.0 U/L (7-52); Albumin Globulin Ratio 1.1 (0.9-2); Albumin Level 3.5 gm/dl (3.4-5.0); Alkaline Phosphatase 110.0 U/L (34-104); Anion Gap 11.0 (3-11); Bilirubin,Total 0.9 mg/dl (0.2-1.0); Blood Urea Nitrogen 10.0 mg/dl (6-23); Calcium 8.1 mg/dl (8.6-10.3); Carbon Dioxide 20.0 mmol/L (21-32); Chloride 90.0 mmol/L (98-107); Creatinine Clr Calc Pharmacy 92.5 ml/min; Globulin 3.1 gm/dl (2.5-4.0); Glucose 111.0 mg/dl (70-99(Fasting)); Magnesium 1.7 mg/dl (1.7-2.4); Potassium 3.9 mmol/L (3.5-5.1); Sodium 121.0 mmol/L (136-145); Total Protein 6.6 gm/dl (6.0-8.3)
[2025-05-15] MEDS: ACETAMINOPHEN 1,000 MG/100 ML VIAL IV PRN (08:02)
--- NOTE | 2025-05-15 08:17 | Hospitalist Progress Note ---
Date of Service May 15, 2025 Assessment & Plan (1) Intertrochanteric fracture of left femur: (2) Alcohol intoxication: (3) Alcohol use disorder, moderate, dependence: (4) Pseudohyponatremia: (5) Chronic hyponatremia: (6) Panlobular emphysema: (7) Nicotine use disorder: Plan In summary this is a 65-year-old male admitted to [facility] with a left intertrochanteric hip fracture subsequent of a fall precipitated by alcohol intoxication complicated by alcohol use disorder and a combination of chronic as well as pseudohyponatremia #Pseudohyponatremia // Chronic hyponatremia Presenting serum sodium of 121; appears euvolemic; complicated by presenting intoxication with alcohol level of 206; the patient is not prescribed any SSRIs, antiepileptics, sulfonylureas, opioids, or thiazides in the outpatient setting; calculated serum osmolarity of 297; urine osmolarity and urine sodium measures are currently pending; strongly suspect that a large component of the patient's current sodium measure is in part due to their additional serum osmole's from alcohol intoxication; would not be significantly surprised to see a rise in their sodium to a significant degree as their body metabolizes this additional osmole; the patient's chronic hyponatremia does not appear to be well-defined in the outpatient setting though also does not appear to be of serious consequence that would require long-term medical management and may be related in part to their alcohol use disorder as further discussed below -Intake and output measure every shift -Follow daily RFP and Magnesium - Remain n.p.o. at this time until cause of hyponatremia is more well-defined #Alcohol use disorder, high risk for complicated withdrawal // Alcohol intoxication at presentation PAWSS score of 4; likelihood ratio of 174 for complicated alcohol withdraw; further complicated by the patient's presenting fractures as detailed further below, likely contributing to their presenting hyponatremia as discussed above; given the risk of complicated withdrawal in addition to the need for surgical intervention during the patient's hospitalization, a frontloaded active phenobarbital protocol will be pursued Loading phenobarbital weight-based dosed ordered, to be followed by oral taper Maintain RASS -1-0 Start thiamine 500 mg IV daily to be tapered to oral after 3 doses Continue folic acid 1 mg IV daily until able to be transition consistently to p.o. after likely surgical intervention Typically would prefer to maintain intravenous fluids given the insensible fluid losses that can occur with this condition however given the patient's concomitant hyponatremia, we need to withhold intravenous fluids until this condition is more well-defined to avoid iatrogenic worsening of this condition or rapid rising of the patient's sodium #Left intertrochanteric femoral fracture // Trauma Presented with left intertrochanteric femoral fracture; orthopedic surgery consulted and hopeful for surgical intervention on 05/15 however this has been delayed at the request of anesthesia due to the patient's degree of hyponatremia; hopeful this can be completed on 05/16 based on anticipated improvement of the patient's sodium as discussed above - Tertiary survey to be performed 05/16 The remainder the patient's chronic medical conditions are stable and do not require adjustment to their outpatient regimen at this time DVT PPx: Start Lovenox 40 mg SQ daily GI PPx: Not indicated at this time Admission and Anticipated Discharge Date Admission Date: May 14, 2025 Results & Data Results & Data Vital Signs (Past 12 Hours) Vital Signs Temp Pulse Pulse Resp BP BP Pulse Ox 05/15/25 07:51 74 21 98 05/15/25 07:46 99/75 L 05/15/25 07:46 99/75 L 05/15/25 07:46 99/75 L 05/15/25 07:46 99/75 L 05/15/25 07:46 99/75 L 05/15/25 07:45 72 17 100 05/15/25 07:42 70 15 100 05/15/25 07:30 69 16 99 05/15/25 07:30 81/66 L 05/15/25 07:30 81/66 L 05/15/25 07:21 74 14 98 05/15/25 07:19 67 05/15/25 07:16 05/15/25 07:12 70 17 95 05/15/25 07:00 68 16 97 05/15/25 07:00 103/83 05/15/25 07:00 103/83 05/15/25 07:00 103/83 05/15/25 07:00 103/83 05/15/25 07:00 103/83 05/15/25 06:51 70 14 97 05/15/25 06:42 67 25 H 99 05/15/25 06:30 103/75 05/15/25 06:30 103/75 05/15/25 06:30 103/75 05/15/25 06:30 103/75 05/15/25 06:30 68 21 98 05/15/25 06:30 103/75 05/15/25 06:30 103/75 05/15/25 06:21 72 17 98 05/15/25 06:12 67 17 100 05/15/25 06:00 67 14 97 05/15/25 05:51 66 28 H 98 05/15/25 05:42 67 17 98 05/15/25 05:31 102/71 05/15/25 05:31 102/71 05/15/25 05:31 102/71 05/15/25 05:31 102/71 05/15/25 05:31 102/71 05/15/25 05:30 64 16 05/15/25 05:21 65 18 99 05/15/25 05:12 66 14 100 05/15/25 05:00 65 15 98 05/15/25 05:00 12105/15/25 05:00 12105/15/25 05:00 12105/15/25 05:00 12105/15/25 05:00 12105/15/25 04:51 64 19 98 05/15/25 04:46 64 05/15/25 04:42 62 28 H 98 05/15/25 04:34 05/15/25 04:31 99/70 L 05/15/25 04:31 99/70 L 05/15/25 04:31 99/70 L 05/15/25 04:31 99/70 L 05/15/25 04:31 99/70 L 05/15/25 04:30 61 14 05/15/25 04:26 05/15/25 04:21 58 L 21 98 05/15/25 04:12 60 16 98 05/15/25 04:01 05/15/25 04:01 05/15/25 04:01 11505/15/25 04:01 11505/15/25 04:01 11505/15/25 04:00 55 L 19 98 05/15/25 03:51 60 19 98 05/15/25 03:45 05/15/25 03:43 05/15/25 03:42 57 L 14 97 05/15/25 03:42 05/15/25 03:30 96/72 L 05/15/25 03:30 96/72 L 05/15/25 03:30 96/72 L 05/15/25 03:30 96/72 L 05/15/25 03:30 96/72 L 05/15/25 03:30 59 L 19 05/15/25 03:29 102/67 05/15/25 03:27 90 05/15/25 03:12 58 L 17 94 05/15/25 03:00 100/68 05/15/25 03:00 100/68 05/15/25 03:00 100/68 05/15/25 03:00 100/68 05/15/25 03:00 100/68 05/15/25 03:00 59 L 13 05/15/25 02:51 58 L 13 98 05/15/25 02:42 57 L 16 97 05/15/25 02:31 104/64 05/15/25 02:31 104/64 05/15/25 02:31 104/64 05/15/25 02:31 104/64 05/15/25 02:31 104/64 05/15/25 02:30 57 L 14 94 05/15/25 02:21 61 14 94 05/15/25 02:12 57 L 14 96 05/15/25 02:00 54 L 16 98 05/15/25 02:00 111/65 05/15/25 02:00 111/65 05/15/25 02:00 111/65 05/15/25 02:00 111/65 05/15/25 02:00 111/65 05/15/25 02:00 55 L 16 111/65 98 05/15/25 01:51 58 L 13 94 05/15/25 01:42 55 L 12 96 05/15/25 01:31 53 L 16 96/71 L 96 05/15/25 01:30 96/71 L 05/15/25 01:30 96/71 L 05/15/25 01:30 96/71 L 05/15/25 01:30 96/71 L 05/15/25 01:30 96/71 L 05/15/25 01:30 54 L 14 96 05/15/25 01:23 108/83 05/15/25 01:23 55 L 16 108/83 97 05/15/25 01:00 56 L 16 92/71 L 97 05/15/25 00:50 54 L 05/15/25 00:00 56 L 16 102/74 98 05/14/25 23:30 59 L 18 105/69 97 05/14/25 23:00 55 L 22 98/73 L 96 05/14/25 22:35 57 L 30 H 113/74 95 05/14/25 22:24 88 L 05/14/25 22:00 59 L 15 106/78 93 05/14/25 21:10 36.4 C L 64 20 122/85 94 05/14/25 21:10 64 20 122/85 94 05/14/25 21:00 62 05/14/25 21:00 64 20 94 05/14/25 21:00 64 20 122/85 94 Pulse Ox O2 Del Method O2 Del Method O2 Flow Rate O2 Flow Rate 05/15/25 07:51 05/15/25 07:46 05/15/25 07:46 05/15/25 07:46 05/15/25 07:46 05/15/25 07:46 05/15/25 07:45 05/15/25 07:42 05/15/25 07:30 05/15/25 07:30 05/15/25 07:30 05/15/25 07:21 05/15/25 07:19 05/15/25 07:16 100 Nasal Cannula 2 05/15/25 07:12 05/15/25 07:00 05/15/25 07:00 05/15/25 07:00 05/15/25 07:00 05/15/25 07:00 05/15/25 07:00 05/15/25 06:51 05/15/25 06:42 05/15/25 06:30 05/15/25 06:30 05/15/25 06:30 05/15/25 06:30 05/15/25 06:30 05/15/25 06:30 05/15/25 06:30 05/15/25 06:21 05/15/25 06:12 05/15/25 06:00 05/15/25 05:51 05/15/25 05:42 05/15/25 05:31 05/15/25 05:31 05/15/25 05:31 05/15/25 05:31 05/15/25 05:31 05/15/25 05:30 05/15/25 05:21 05/15/25 05:12 05/15/25 05:00 05/15/25 05:00 05/15/25 05:00 05/15/25 05:00 05/15/25 05:00 05/15/25 05:00 05/15/25 04:51 05/15/25 04:46 05/15/25 04:42 05/15/25 04:34 Nasal Cannula 3 05/15/25 04:31 05/15/25 04:31 05/15/25 04:31 05/15/25 04:31 05/15/25 04:31 05/15/25 04:30 05/15/25 04:26 Nasal Cannula 05/15/25 04:21 05/15/25 04:12 Nasal Cannula 3 05/15/25 04:01 05/15/25 04:01 05/15/25 04:01 05/15/25 04:01 05/15/25 04:01 05/15/25 04:00 05/15/25 03:51 05/15/25 03:45 Nasal Cannula 05/15/25 03:43 96 Nasal Cannula 3 05/15/25 03:42 05/15/25 03:42 96 Nasal Cannula 3 05/15/25 03:30 05/15/25 03:30 05/15/25 03:30 05/15/25 03:30 05/15/25 03:30 05/15/25 03:30 05/15/25 03:29 05/15/25 03:27 05/15/25 03:12 05/15/25 03:00 05/15/25 03:00 05/15/25 03:00 05/15/25 03:00 05/15/25 03:00 05/15/25 03:00 05/15/25 02:51 05/15/25 02:42 05/15/25 02:31 05/15/25 02:31 05/15/25 02:31 05/15/25 02:31 05/15/25 02:31 05/15/25 02:30 05/15/25 02:21 05/15/25 02:12 05/15/25 02:00 05/15/25 02:00 05/15/25 02:00 05/15/25 02:00 05/15/25 02:00 05/15/25 02:00 05/15/25 02:00 Nasal Cannula 2 05/15/25 01:51 05/15/25 01:42 05/15/25 01:31 Nasal Cannula 2 05/15/25 01:30 05/15/25 01:30 05/15/25 01:30 05/15/25 01:30 05/15/25 01:30 05/15/25 01:30 05/15/25 01:23 05/15/25 01:23 Nasal Cannula 2 05/15/25 01:00 Nasal Cannula 2 05/15/25 00:50 05/15/25 00:00 Nasal Cannula 2 05/14/25 23:30 Nasal Cannula 2 05/14/25 23:00 Nasal Cannula 2 05/14/25 22:35 Nasal Cannula 2 05/14/25 22:24 Nasal Cannula 2 05/14/25 22:00 Nasal Cannula 2 05/14/25 21:10 Room Air 0 05/14/25 21:10 Room Air 05/14/25 21:00 05/14/25 21:00 Room Air 05/14/25 21:00 Room Air PG Care Time/CCT Total # of Minutes Spent Total Time Spent with Patient: Total time spent is greater than 50% in coordination of care (as documented) at patient's floor/unit and/or counseling patient: Coding Level of Care Code 42388 SUB INP/OBS CARE 3/50MIN Diagnoses Closed nondisplaced intertrochanteric fracture of left femur, initial encounter S72.145A Encounter type: initial encounter Fracture type: closed Fracture alignment: nondisplaced Alcoholic intoxication with complication F10.929 Complication of substance-induced condition: with unspecified complication Alcohol use disorder, moderate, dependence F10.20 Pseudohyponatremia R79.89 Chronic hyponatremia E87.1 Panlobular emphysema J43.1 Nicotine use disorder F17.200 (1) Intertrochanteric fracture of left femur Encounter type: initial encounter Fracture type: closed Fracture alignment: nondisplaced Qualified Code(s): S72.145A - Nondisplaced intertrochanteric fracture of left femur, initial encounter for closed fracture (2) Alcohol intoxication Complication of substance-induced condition: with unspecified complication Qualified Code(s): F10.929 - Alcohol use, unspecified with intoxication, unspecified
--- NOTE | 2025-05-15 08:49 | Orthopedic Consultation ---
Date of Service May 15, 2025 Assessment & Plan (1) Intertrochanteric fracture of left femur: * Case/imaging reviewed and discussed with Dr Hassan * Recommend OR fixation of left femur * Discussed with anesthesia, given hyponatremia will need to be corrected prior to OR * NPO midnight for possible OR tomorrow, will check AM labs and discuss with anesthesia first thing * Weight bearing status: NWB preop * Pain control * Disposition: TBD, anticipate rehab * Remainder care per primary team * Will continue to follow (2) Acute hyponatremia: History of Present Illness Reason for Consultation: . Left hip pain Requesting Physician: . Attending Physician: Wyatt Rojo DO . Patient is a 65y/o male with left hip pain. PMH including alcohol use, tobacco use, GERD, COPD, HTN. Presents to hospital with left hip pain after a fall. Per report patient was ambulating when he slipped on ice and fell on his left side. Left hip pain and inability ambulate following the injury. Brought to ED for evaluation. Current workup including x-ray left hip/pelvis demonstrating comminuted intertrochanteric femur fracture. Patient with alcohol use of 8-10 beers per day, no withdrawal symptoms at time of admission. Hyponatremia, NA 121. Admitted to hospital medicine team. Orthopedics consulted for management recommendations. At time of exam patient lying in bed, no acute distress. Family is in the room and participates with history and exam. Patient reports moderate left hip pain at rest that increases with attempted movement of the left leg. Denies tingling or numbness left lower extremity. Ambulates without assistance at baseline. Allergies Allergy/AdvReac Type Severity Reaction Status Date / Time dextromethorphan Allergy Mild STRANGE Verified 04/14/25 14:20 [From Robitussin Cough and FEELING Cold CF] guaifenesin Allergy Mild STRANGE Verified 04/14/25 14:20 [From Robitussin Cough and FEELING Cold CF] phenylephrine Allergy Mild STRANGE Verified 04/14/25 14:20 [From Robitussin Cough and FEELING Cold CF] Home Medications Medication Instructions Recorded Confirmed Type atorvastatin 40 mg tablet 40 mg PO QPM #90 tabs 07/07/24 05/15/25 Rx metoprolol succinate 50 mg 50 mg PO DAILY #90 tabs 07/07/24 05/15/25 Rx tablet,extended release 24 hr albuterol sulfate 90 mcg/actuation 2 puff inhalation Q6H PRN 09/29/24 05/15/25 Rx aerosol inhaler shortness of breath or wheezing #18 grams tiotropium bromide 2.5 2 puff inhalation DAILY #4 grams 01/18/25 05/15/25 Rx mcg/actuation mist for inhalation (Spiriva Respimat) amlodipine 10 mg tablet 10 mg PO DAILY #30 tabs 03/31/25 05/15/25 Rx cholecalciferol (vitamin D3) 25 25 mcg PO DAILY #30 caps 05/10/25 05/15/25 Rx mcg (1,000 unit) capsule Past Med/Surg History Problem List (Updated 05/14/25 @ 23:43 by Bert Denney DO) Alcohol abuse (Acute) Acute hyponatremia (Acute) Closed hip fracture (Acute) Hypoxia Alcohol withdrawal Intertrochanteric fracture of left femur Trauma Hearing loss in left ear Alcohol dependence Lyme arthritis Olecranon bursitis, right elbow GERD without esophagitis Emphysema lung Hyponatremia (Acute) Empyema of left pleural space (Acute) COPD (chronic obstructive pulmonary disease) (Chronic) Generalized headaches Infected sebaceous cyst Tobacco use Bilateral cataracts Pulmonary nodule, right (~08/2020) Aneurysm of infrarenal abdominal aorta 1st noted to 08/02/2020 -2.8 cm Cervical stenosis of spinal canal C3-C4 Hypercholesterolemia Elevated LFTs Hypertension Medical History History of colon polyps Hx of migraines GERD (gastroesophageal reflux disease) Chronic obstructive pulmonary disease Surgical History History of colonoscopy History of cataract surgery History of tooth extraction S/P robot-assisted surgical procedure History of nasal cauterization Family History Father Myocardial infarction Uncle Myocardial infarction Grandmother (Maternal) Myocardial infarction Mother Family history of diabetes mellitus Other Family history non-contributory No family history of adverse response to anesthesia Denies family history of Ovarian cancer Prostate cancer Breast cancer Colorectal cancer Social History Smoking Status: Current every day smoker Tobacco Type: Cigarettes Age Started Using Tobacco: 10; packs per day: 2; Cigarettes Per Day: 20 CIG DAILY *ADVISED; Second Hand Exposure: Yes; Do You Dip or Chew Tobacco: No; Hx Alcohol Use: Yes Alcohol type: beer Hx Substance Use: Yes Last Used Substance: Days (ago) Last Used Substance Other:: ADVISED Preferred Language: Indonesian Communication Ability: Effective Visual Impairment: No Limitations Hearing Ability: Hard of Hearing Auto Damage Insurance Appraiser Required: No Beliefs That Will Affect Care: None marital status: Single Current Living Situation: Alone Current Living Situation Comment: Alone, in trailer current occupational status: employed Other Information That Helps Us Care for You: No Feels Safe at Home: Yes Safety Concerns: Feels Safe At This Time Childhood Exposure to Second-Hand Smoke: Yes Diet: regular caffeine: Yes during the past year weight has: remained stable Dental Care, Regularly: Yes Physical Activity Frequency: Daily Seatbelt Use: always Sunscreen Use: No Assistive Devices: Denture - Upper, Denture - Lower and Glasses Review of Systems All systems reviewed & are unremarkable except as noted in HPI & below. Physical Exam . * General: Alert and oriented, no acute distress * Constitutional: well-developed, well-nourished. * Respiratory: Normal respiratory effort, no distress * Gastrointestinal: No tenderness to palpation, no rigidity or guarding. * Skin: No rash or lesion. * Neurologic: Grossly normal * Musculoskeletal: Left lower extremity shortened and actually rotated. Otherwise no obvious deformity or overlying skin changes to the left leg. TTP left anterior/lateral hip and proximal thigh region. Otherwise no tenderness of the distal thigh, knee, lower leg. Pain with logroll, otherwise ROM hip not assessed. AROM foot/ankle intact. Sensation intact plantar/dorsal foot. Brisk capillary refill. Results & Data Results & Data Laboratory Results . 05/15/25 05/15/25 05/14/25 04:25 03:40 22:29 WBC 11.87 H RBC 3.68 L Hgb 12.2 L POC Hgb Hct 33.9 L POC Hct MCV 92.1 MCH 33.2 MCHC 36.0 RDW Std Deviation 41.1 RDW Coeff of Genevieve 12.0 Plt Count 253 MPV 9.0 L Immature Gran % (Auto) 0.3 Neut % (Auto) 71.6 Lymph % (Auto) 17.6 Carbon % (Auto) 8.6 Eos % (Auto) 1.3 Baso % (Auto) 0.6 Neut # (Auto) 8.50 H Lymph # (Auto) 2.09 Carbon # (Auto) 1.02 H Eos # (Auto) 0.15 Baso # (Auto) 0.07 Immature Gran # (Auto) 0.04 PT INR APTT PTT Ratio POC Sodium Sodium 121 L POC Potassium Potassium 3.9 POC Chloride Chloride 90 L Carbon Dioxide 20 L POC Total CO2 Anion Gap 11 POC Anion Gap POC BUN BUN 10 Creatinine 0.90 POC Creatinine Est Cr Clr Drug Dosing 92.5 eGFR 94.78 BUN/Creatinine Ratio 11.1 Glucose 111 H POC Glucose (other) Calcium 8.1 L POC Ioniz Calcium Tiesha Magnesium 1.7 Total Bilirubin 0.9 AST 41 H ALT 33 Alkaline Phosphatase 110 H Total Protein 6.6 Albumin 3.5 Globulin 3.1 Albumin/Globulin Ratio 1.1 Lipase Vitamin B12 Urine Color Yellow Urine Appearance Clear Urine pH 6.0 Ur Specific [place] 1.017 Urine Protein Negative Urine Glucose (UA) Negative Urine Ketones Negative Urine Blood Negative Urine Nitrite Negative Urine Bilirubin Negative Urine Urobilinogen Negative Ur Leukocyte Esterase Negative Urine Comment Ethyl Alcohol mg/dL 206.6 H Blood Type O Positive Antibody Screen NEGATIVE 05/14/25 05/14/25 21:22 21:02 WBC 10.01 RBC 4.10 L Hgb 13.9 L POC Hgb 14.6 Hct 38.1 L POC Hct 43 MCV 92.9 MCH 33.9 MCHC 36.5 H RDW Std Deviation 40.5 RDW Coeff of Genevieve 11.9 Plt Count 260 MPV 9.2 L Immature Gran % (Auto) 0.5 Neut % (Auto) 58.9 Lymph % (Auto) 27.7 Carbon % (Auto) 9.3 Eos % (Auto) 2.5 Baso % (Auto) 1.1 Neut # (Auto) 5.90 Lymph # (Auto) 2.77 Carbon # (Auto) 0.93 H Eos # (Auto) 0.25 Baso # (Auto) 0.11 Immature Gran # (Auto) 0.05 PT 10.9 INR 1.0 APTT 30 PTT Ratio 1.1 POC Sodium 124 L Sodium 121 L POC Potassium 3.9 Potassium 3.8 POC Chloride 87 L Chloride 88 L Carbon Dioxide 23 POC Total CO2 21 L Anion Gap 10 POC Anion Gap 20.0 POC BUN 7 BUN 8 Creatinine 0.72 POC Creatinine 1.0 Est Cr Clr Drug Dosing 115.7 eGFR 101.39 BUN/Creatinine Ratio 11.1 Glucose 99 POC Glucose (other) 95 Calcium 8.3 L POC Ioniz Calcium Tiesha 1.03 L Magnesium Total Bilirubin 0.7 AST 36 ALT 35 Alkaline Phosphatase 124 H Total Protein 7.4 Albumin 4.0 Globulin 3.4 Albumin/Globulin Ratio 1.2 Lipase 17 Vitamin B12 226 Urine Color Urine Appearance Urine pH Ur Specific [place] Urine Protein Urine Glucose (UA) Urine Ketones Urine Blood Urine Nitrite Urine Bilirubin Urine Urobilinogen Ur Leukocyte Esterase Urine Comment Ethyl Alcohol mg/dL Blood Type Antibody Screen Diagnostic Findings . Chest X-Ray 05/14/25 20:57 Exam(s): XR CXR 1 VIEW EXAM: XR Chest, 1 View CLINICAL HISTORY: Trauma. TECHNIQUE: Frontal view of the chest. COMPARISON: No relevant prior studies available. FINDINGS: Lungs: No definite pulmonary contusive injury or focal consolidation. Pleural space: No significant abnormality. No pneumothorax. No large pleural effusion. Heart: No significant abnormality. No cardiomegaly. Mediastinum: No evidence for mediastinal widening. No tracheal deviation. Bones/joints: No definite acute osseous traumatic injury. 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 IMPRESSION: No radiographic evidence for significant acute traumatic injury involving the chest/thorax. Electronically signed by: Manpreet Melchor MD 05/14/25 22:03 PM Hip/Pelvis X-Ray 05/14/25 20:57 Exam(s): XR HIP + PELVIS, 1 view EXAM: XR Left Hip With Pelvis When Performed, 1 View CLINICAL HISTORY: fall. TECHNIQUE: Frontal view of the left hip with pelvis when performed. COMPARISON: No relevant prior studies available. FINDINGS: Bones/joints: Comminuted displaced left intertrochanteric femur fracture. The left femoral head remains in the acetabulum. The pelvic bones are intact. No dislocation. Soft tissues: No significant abnormality. Vasculature: Regional arterial calcification noted. IMPRESSION: Comminuted displaced left intertrochanteric femur fracture. The left femoral head remains in the acetabulum. Electronically signed by: Manpreet Melchor MD 05/14/25 22:01 PM Abdomen/Pelvis CT 05/14/25 20:58 Exam(s): CT ABDOMEN + PELVIS With Contrast IV Amt: 90 ml optiray 320 EXAM: CT Abdomen and Pelvis With Intravenous Contrast CLINICAL HISTORY: Trauma. TECHNIQUE: Axial computed tomography images of the abdomen and pelvis with intravenous contrast. CTDI is 62.75 mGy and DLP is 4670.68 mGy-cm. Automated exposure control was utilized for the study. A dose lowering technique was utilized adhering to the principles of ALARA. CONTRAST: Patient received 90 ml optiray 320 of IV contrast COMPARISON: No relevant prior studies available. FINDINGS: Lung bases: For findings regarding the lung bases, please see the CT report of the chest performed concurrently. ABDOMEN: Liver: The liver is intact without evidence for acute traumatic injury. Gallbladder and bile ducts: Dependent subcentimeter cholelithiasis noted in the gallbladder. No ductal dilation. Pancreas: No significant abnormality. No mass. No ductal dilation. Spleen: The spleen is intact without evidence for acute traumatic injury. Adrenals: No significant abnormality. No mass. Kidneys and ureters: The kidneys appear intact without evidence for acute traumatic injury. No hydronephrosis. Stomach and bowel: No evidence for acute traumatic bowel injury. No bowel obstruction. No definite significant asymmetric mucosal thickening. PELVIS: Appendix: Not evaluated. Bladder: The bladder is prominently distended with fluid with some lobulation posteriorly. No evidence for traumatic injury. Reproductive: Unremarkable as visualized. ABDOMEN and PELVIS: Intraperitoneal space: No significant abnormality. No free air. No significant fluid collection. Retroperitoneal space: No evidence for retroperitoneal hematoma. Bones/joints: There is a displaced left intertrochanteric proximal femur fracture. The left femoral head remains in the acetabulum. The lumbar spine, pelvic bones and proximal right femur appear intact. No dislocation. Soft tissues: Intramuscular fat stranding noted about the femur fracture. No definite well-defined hematoma. No other significant acute traumatic soft tissue injury identified. Vasculature: The aorta is normal in caliber without evidence for traumatic injury. No dissection. No evidence for acute periaortic abnormality. Atherosclerotic disease. Lymph nodes: No significant abnormality. No enlarged lymph nodes. IMPRESSION: 1. There is a displaced left intertrochanteric proximal femur fracture. The left femoral head remains in the acetabulum. Intramuscular and soft tissue edema surrounding the femur fracture. No well-defined hematoma. No subcutaneous emphysema. 2. No other significant acute traumatic injury to the abdomen or pelvis with incidental findings, as noted above. Electronically signed by: Manpreet Melchor MD 05/14/25 22:[address] 05/14/25 20:58 Exam(s): CT C SPINE EXAM: CT Cervical Spine Without Intravenous Contrast CLINICAL HISTORY: Trauma. TECHNIQUE: Axial computed tomography images of the cervical spine without intravenous contrast. CTDI is 25.06 mGy and DLP is 529.64 mGy-cm. Automated exposure control was utilized for the study. A dose lowering technique was utilized adhering to the principles of ALARA. COMPARISON: No relevant prior studies available. FINDINGS: Vertebrae: The vertebral bodies are intact without acute osseous traumatic injury. No anterolisthesis or retrolisthesis is identified. The facet joints are well aligned without subluxation or dislocation. The pedicles, transverse processes and spinous processes are intact. Bilateral chronic facet hypertrophic arthropathy incidentally noted. Discs/spinal canal/neural foramina: Incidental chronic appearing multilevel disc spondylosis noted with narrowing and marginal hypertrophic changes. No significant acute central canal stenosis identified. Soft tissues: No significant abnormality. Vasculature: Extensive atherosclerotic calcification involving the carotid bifurcations, [id number], with apparent near transluminal calcification suggested. Lung apices: The included lung apices demonstrate no evidence for acute traumatic injury. IMPRESSION: No acute osseous traumatic injury or significant abnormal alignment involving the cervical spine. Electronically signed by: Manpreet Melchor MD 05/14/25 22:[address] 05/14/25 20:58 Exam(s): CT CHEST With Contrast IV Amt: 90 ml optiray 320 EXAM: CT Chest With Intravenous Contrast CLINICAL HISTORY: Trauma. TECHNIQUE: Axial computed tomography images of the chest with intravenous contrast. CTDI is 62.75 mGy and DLP is 4670.68 mGy-cm. Automated exposure control was utilized for the study. A dose lowering technique was utilized adhering to the principles of ALARA. CONTRAST: Patient received 90 ml optiray 320 of IV contrast COMPARISON: Noncontrast CT chest 04/02/2024 FINDINGS: Lungs: No pulmonary contusive injury. Similar peripheral cystic subcentimeter honeycombing along the periphery of the left upper lobe in the region of the rib defect. Curvilinear changes of the right lung base. Pleural space: No pleural effusion or pneumothorax. Heart: Moderate coronary artery calcification. No pericardial effusion. Cardiac chambers are normal in size. Mediastinum: Small hiatal hernia. 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 No acute osseous traumatic injury. Similar chronic anterior wedging from C7 through T9 levels resulting in slightly accentuated kyphosis. Soft tissues: Similar subdermal cyst in the dorsal midline subcutaneous fat, not significantly altered in size measuring 1.7 x 3.2 cm. No significant overlying acute traumatic soft tissue abnormality. Vasculature: The thoracic aorta is normal in caliber without dissection or aneurysm. Mild atherosclerotic calcification. Lymph nodes: No significant abnormality. No enlarged lymph nodes. IMPRESSION: No significant acute traumatic injury involving the chest/thorax. Chronic underlying findings, as noted above. Electronically signed by: Manpreet Melchor MD 05/14/25 22:[address] 05/14/25 20:58 Exam(s): CT HEAD Without Contrast EXAM: CT Head Without Intravenous Contrast CLINICAL HISTORY: trauma. TECHNIQUE: Axial computed tomography images of the head/brain without intravenous contrast. CTDI is 62.75 mGy and DLP is 4670.68 mGy-cm. Automated exposure control was utilized for the study. A dose lowering technique was utilized adhering to the principles of ALARA. COMPARISON: No relevant prior studies available. FINDINGS: Limitations: There is motion artifact, which degrades image quality on multiple image slices. Brain: Accounting for mild motion artifact, there is no intracranial hemorrhage. No significant mass effect. No cortical infarct. There are a few areas of decreased attenuation in the deep cerebral white matter consistent with mild small vessel ischemic/degenerative changes. The cerebral and cerebellar sulci are mildly prominent consistent with mild brain atrophy. Ventricles: No significant abnormality. No ventriculomegaly. Bones/joints: No significant abnormality. No acute fracture. Soft tissues: No significant overlying soft tissue traumatic injury identified. No radiopaque foreign body or subcutaneous emphysema. Vasculature: Atherosclerotic disease. Sinuses: Mucosal thickening and opacification of several ethmoid air cells in the right sphenoid sinus. No air-fluid levels. Mastoid air cells: Unremarkable as visualized. No mastoid effusion. IMPRESSION: No acute intracranial process identified. Electronically signed by: Manpreet Melchor MD 05/14/25 21:55 PM PG Care Time/CCT Total # of Minutes Spent Total Time Spent with Patient: Total time spent is greater than 50% in coordination of care (as documented) at patient's floor/unit and/or counseling patient: [place] [address] IN/OBS CONSULT LVL 5,80M Patient Type New Medical Decision Making High Complexity Diagnoses Intertrochanteric fracture of left femur S72.142A Acute hyponatremia E87.1
[2025-05-15] MEDS ORDERED: MIDAZOLAM HCL 1 MG/ML 2ML VIAL ONE (09:04)
[2025-05-15] MEDS ORDERED: ROCURONIUM BROMIDE 10 MG/ML 5 ML VIAL IV ONE (09:05)
[2025-05-15] MEDS ORDERED: PROPOFOL IV EMULSION 10 MG/ML 20 ML VIAL IV ONE (09:05)
[2025-05-15] MEDS ORDERED: LIDOCAINE 2% 2 ML VIAL/AMP(20MG/ML) INFIL ONE (09:05)
[2025-05-15] MEDS ORDERED: SUGAMMADEX SODIUM 200 MG/2 ML VIAL IV ONE (09:05)
[2025-05-15] MEDS ORDERED: ONDANSETRON INJ 2 MG/ML 2 ML VIAL ONE (09:05)
[2025-05-15] MEDS: UMECLIDINIUM BROMIDE 62.5MCG/BLISTER 7 PUFFS/INHALER INH SCH (09:39)
[2025-05-15] MEDS: NICOTINE 21 MG/24 HR TDSY TD SCH (09:39)
[2025-05-15] MEDS: METOPROLOL SUCC 50MG EXT REL TAB PO SCH (09:40)
[2025-05-15] MEDS: FOLIC ACID 1 MG in SYRINGE 9.8 ML IV SCH (09:40)
[2025-05-15] MEDS: THIAMINE HCL 100 MG in SYRINGE 9 ML IV SCH (09:41)
[2025-05-15] MEDS: REMOVE NICODERM PATCH SCH (09:41)
--- NOTE | 2025-05-15 09:50 | Communication Note ---
Date of Service: May 15, 2025 Pt scheduled for ORIF hip fracture. PMH includes chronic alcoholism. Presented w Na 121 mmol/L. Had milder hyponatremia (128mmol/L) last admission in April. This degree of hyponatremia requires treatment prior to non-emergent surgery. Discussed w surgeon.
[2025-05-15] MEDS ORDERED: STAT IV/IM STA ×3 (10:06→17:43)
[2025-05-15] MEDS: KETOROLAC TROMETHAMINE 15 MG/ML VIAL IV PRN (10:08)
[2025-05-15] MEDS: TRANEXAMIC ACID / 0.7% NACL 1000MG/100ML BAG IV ONE (10:26)
[2025-05-15] MEDS: BUPIVACAINE/EPINEPHRINE 0.5% MPF 1:200,000 30 ML VIAL ONE (10:26)
[2025-05-15] MEDS: ENOXAPARIN INJ 40 MG/0.4 ML SYR SQ SCH (11:17)
--- NOTE | 2025-05-15 11:57 | Communication Note ---
Date of Service: May 15, 2025 In summary, this patient presents with non-hypotonic hyponatremia which is most likely consequential of a translocation physiology from ethanol intoxication. The patient does not have evidence of lipemic serum after discussion with our laboratory technicians. There is no evidence of hyperproteinemia based on serum measures. There are no additional osmolar products that would be contributing to this (glucose, mannitol, IVIG, hypertonic contrast). Though he is non-hypotonic, additional labs to assess his renal function with respect to sodium balance were obtained. His urine osmolarity is elevated (i.e. very concentrated) essentially ruling out beer potomania. He appears euvolemic vs borderline hypovolemic. The patient's diminished urine sodium level rules out conditions of hypovolemic hyponatremia with salt wasting (i.e. diuretics, osmotic diuresis, cerebral salt wasting) and makes SIADH less likely, though could still be contributing with an intact RAAS. A/P: this would support a hypovolemic hyponatremia without renal salt wasting with an overlying non-hypotonic hyponatremia; rerunning the patient's most recent sodium measure to make sure this has truly not changed, if it remains in the low 120s, then would pursue volume resuscitation with close monitoring of serum sodium, the most likely source of his volume loss being insensible losses from early alcohol withdrawal
[2025-05-15] MEDS: DESMOPRESSIN ACETATE 2 MCG in SODIUM CHLORIDE 0.9% 50 ML IV SCH (12:45)
[2025-05-15] MEDS: SODIUM CHLORIDE 3 % 500 ML IV SCH (12:58)
[2025-05-15] MEDS: MoRPHine SULFATE 2 MG/ML CARP IV PRN (14:25)
--- NOTE | 2025-05-15 15:12 | Electrocardiogram Report ---
Test Reason : Blood Pressure : */* mmHG Vent. Rate : 59 BPM Atrial Rate : 59 BPM P-R Int : 190 ms QRS Dur : 76 ms QT Int : 462 ms P-R-T Axes : 69 53 72 degrees QTcB Int : 457 ms Sinus bradycardia Otherwise normal ECG When compared with ECG of 16-Jan-2018 17:53, No significant change was found Confirmed by Destiny Rangel (Arianne) on 05/15/2025 3:11:41 PM Referred By: REFERRED SELF Confirmed By: Destiny Rangel
--- NOTE | 2025-05-15 15:27 | Electrocardiogram Report ---
Test Reason : Blood Pressure : */* mmHG Vent. Rate : 71 BPM Atrial Rate : 71 BPM P-R Int : 170 ms QRS Dur : 68 ms QT Int : 416 ms P-R-T Axes : 67 41 54 degrees QTcB Int : 452 ms Normal sinus rhythm Low voltage QRS Normal ECG When compared with ECG of 14-May-2025 21:49, (unconfirmed) No significant change Confirmed by Destiny Rangel (Arianne) on 05/15/2025 3:26:56 PM Referred By: REFERRED SELF Confirmed By: Destiny Rangel
[2025-05-15] MEDS: ACETAMINOPHEN 1,000 MG/100 ML VIAL IV SCH (16:03)
[2025-05-15] MEDS: STOP ORDER ONE ×2 (16:04→21:45)
--- NOTE | 2025-05-15 17:48 | Communication Note ---
Date of Service: May 15, 2025 Serum sodium measure of 124 after 210 mL of 3% hypertonic saline and initiation of DDAVP clamp; continue DDAVP, administer 250 mL of 3% hypertonic saline over 4 hours with reassessment of serum sodium at 2230 hours
[2025-05-15] MEDS: SODIUM CHLORIDE 3 % 250 ML IV SCH (18:41)
[2025-05-15] MEDS: ATORVASTATIN 40 MG TAB PO SCH (20:47)
[2025-05-16] MEDS: MoRPHine SULFATE 4 MG/ML 1 ML CARP\\VIAL IV PRN (05:08)
[2025-05-16 06:00] LABS: Hematocrit (blood only) 27.8 % (42.0-52.0); Hemoglobin 9.8 g/dL (14.0-18.0); Mean Corpuscular Hemoglobin 33.0 pg (25.0-34.0); Mean Corpuscular Volume 93.6 fL (80.0-100.0); Platelet Count 232 K/uL (130-400); RDW Standard Deviation 41.8 fL (36.4-46.3); Red Blood Count 2.97 M/uL (4.70-6.10); White Blood Count 6.61 K/ul (4.8-10.8)
[2025-05-16 06:20] LABS: Alanine Aminotransferase 25.0 U/L (7-52); Albumin Globulin Ratio 1.2 (0.9-2); Albumin Level 3.3 gm/dl (3.4-5.0); Alkaline Phosphatase 95.0 U/L (34-104); Anion Gap 7.0 (3-11); Bilirubin,Total 1.4 mg/dl (0.2-1.0); Blood Urea Nitrogen 14.0 mg/dl (6-23); Calcium 8.3 mg/dl (8.6-10.3); Carbon Dioxide 23.0 mmol/L (21-32); Chloride 98.0 mmol/L (98-107); Creatinine Clr Calc Pharmacy 120.8 ml/min; Globulin 2.8 gm/dl (2.5-4.0); Glucose 101.0 mg/dl (70-99(Fasting)); Potassium 4.3 mmol/L (3.5-5.1); Sodium 128.0 mmol/L (136-145); Total Protein 6.1 gm/dl (6.0-8.3)
--- NOTE | 2025-05-16 07:35 | Hospitalist Progress Note ---
Date of Service May 16, 2025 Assessment & Plan (1) Hyponatremia with extracellular fluid depletion: (2) Chronic hyponatremia: (3) Pseudohyponatremia: (4) Alcohol use disorder, moderate, dependence: (5) Intertrochanteric fracture of left femur: (6) Trauma: Plan In summary this is a 65-year-old male admitted to [facility] with a left intertrochanteric hip fracture subsequent of a fall precipitated by alcohol intoxication complicated by alcohol use disorder and a combination of chronic as well as pseudohyponatremia #Chronic hypovolemic hyponatremia // Translocational hyponatremia (Resolved) Presenting serum sodium of 121; euvolemic vs borderline hypovolemic at presentation; complicated by presenting intoxication with alcohol level of 206; the patient is not prescribed any SSRIs, antiepileptics, sulfonylureas, opioids, or thiazides in the outpatient setting; calculated serum osmolarity of 297 from admitting laboratory assessment, serum osmolarity measure from midday 05/15 of 257; urine osmolarity and urine sodium measures suggestive of hypovolemic hyponatremia without salt wasting; in summary, initial assessment most consistent with a translocational hyponatremia from ethanol intoxication then developing a hypovolemic hyponatremia which was managed with DDAVP clamp and hypertonic saline infusions - Intake and output measure every shift - Follow daily RFP and Magnesium #Alcohol use disorder, high risk for complicated withdrawal // Alcohol intoxication at presentation PAWSS score of 4; likelihood ratio of 174 for complicated alcohol withdraw; given the risk of complicated withdrawal in addition to the need for surgical intervention during the patient's hospitalization, a frontloaded active phenobarbital protocol was initially pursued but due to concerns of phenobarbital in the setting of anticipated surgical intervention, this was discontinued and a reactive benzodiazepine plan was initiated; without findings of withdrawal at this time Continue as needed diazepam for withdrawal symptoms Serial AWSS Continue thiamine 500 mg IV daily to be tapered to oral after 3 doses Continue folic acid 1 mg IV daily until able to be transition consistently to p.o. after likely surgical intervention Continue maintenance IV fluids 05/16 with resolved hyponatremia at rate of 115 mL/hr #Left intertrochanteric femoral fracture // Trauma Presented with left intertrochanteric femoral fracture; orthopedic surgery consulted and hopeful for surgical intervention on 05/15 however this has been delayed at the request of anesthesia due to the patient's degree of hyponatremia; hopeful this can be completed on 05/16 based on anticipated improvement of the patient's sodium as discussed above; the patient is currently medically optimized for surgical intervention on 05/16 - Tertiary survey completed; given the patient's left intertrochanteric fracture which is yet to be surgically intervened upon, full assessment of hip flexion/extension could not be safely performed The remainder the patient's chronic medical conditions are stable and do not require adjustment to their outpatient regimen at this time DVT PPx: Continue Lovenox 40 mg SQ daily GI PPx: Not indicated at this time Admission and Anticipated Discharge Date Admission Date: May 14, 2025 Subjective Mr. Pineda is a 65-year-old male who presented to the [facility] after an unwitnessed fall resulting in left intertrochanteric hip fracture whilst intoxicated with alcohol. No acute overnight events; Patient this morning has only complaint of his delayed surgical intervention in addition to not yet eating as consequence of this. He denies any visual or auditory hallucinations, tremulousness. He does endorse intermittent left hip pain that occurs with movement, but at rest has minimal symptoms. Review of Systems Review of Systems: Review of constitutional, cardiovascular, pulmonary, gastrointestinal, genitourinary, neurovascular, musculoskeletal systems was unremarkable except for pertinent positive and negative findings discussed above Physical Exam Physical Exam: Tertiary Survey: Objective: All labs and imaging reports reviewed. Physical Exam: General: - Alert: Yes - Oriented: Yes - GCS 15 HEENT: - No pain/tenderness - No lacerations/abrasions - No numbness/tingling - PERRL. No relative afferent pupillary defect. Normal Visual Acuity. No visual field cuts. No nystagmus. No contact lenses. Normal hearing. No facial asymm etry. Normal palatal elevation, uvula midline. Midline tongue protrusion. - Mucous membranes tacky. Neck: - Shoulder shrug with 5/5 strength bilat erally - Midline Tenderness: No - Cleared C-Spine: Yes Thorax: - Pain/Tenderness: None - Lacerations/Abrasions: None - Swelling/Ecchymosis: None - Air/Bony Crepitus: None Cardiopulmonary: - Regular rate and rhythm without murmur s, rubs or gallops. - Lungs clear to auscultation bilaterall y - Symmetric and unrestricted chest wall excursion Abdomen - Pain/Tenderness: None - Lacerations/Abrasions: None - No abdominal distension - Abdominal rigidity/guarding: None - Bowel Sounds: present, with normal sanchez quency and pitch - Pelvis stable; with some referred disc omfort with pressure at the left ASIS involving the patient's left hip fracture Back/Spine - Lacerations/Abrasions: None - Swelling/Ecchymosis: None - Pain/Tenderness: None - Step-offs: None Extremities: - RUE: No deformity. No lacerations/andry sions. No swelling/ecchymosis. No pain/tenderness. Full active and passive range of motion. Bulk Plant Manager strength, elbow flexion/extension, shoulder flexion/extension/abduction/adduction/external rotation/internal rotation intact with 5/5 strength. Sensation intact to soft touch without deficit. Radial pulse 2+, capillary refill <2 seconds. - LUE: No deformity. No lacerations/andry sions. No swelling/ecchymosis. No pain/tenderness. Full active and passive range of motion. Bulk Plant Manager strength, elbow flexion/extension, shoulder flexion/extension/abduction/adduction/external rotation/internal rotation intact with 5/5 strength. Sensation intact to soft touch without deficit. Radial pulse 2+, capillary refill <2 seconds. - LLE: Remains similar to previous asses sment with shortened length compared to the right lower extremity and with external rotation at rest. No lacerations/abrasions. Left gluteal ecchymosis without palpable hematoma, though tender to palpation secondary to known fracture. No additional pain/tenderness. Limited range of motion assessment given the patient's left hip fracture though the ipsilateral knee, ankle, have no obvious restriction nor visual or palpable abnormalities. Hip flexion/extension is unable to be fully evaluated given the patient's fracture; knee flexion/extension, ankle dorsiflexion/plantarflexion with 5/5 strength. Sensation intact to soft touch without deficit. PT pulse 2+, capillary refill<2 seconds. - RLE: No deformity. No lacerations/andry sions. No swelling/ecchymosis. No pain/tenderness. Full active and passive range of motion. Hip flexion/extension, knee flexion/extension, ankle dorsiflexion/plantarflexion with 5/5 strength. Sensation intact to soft touch without deficit. PT pulse 2+, capillary refill<2 seconds. Mental status adequate for Full Exam: Yes C-Spine Cleared (Radiologically AND Clinically): Yes Results & Data Results & Data Vital Signs (Past 12 Hours) Vital Signs Temp Pulse Resp BP Pulse Ox Pulse Ox O2 Del Method 05/16/25 04:00 36.5 C 95 H 17 104/70 94 Room Air 05/16/25 03:16 94 05/16/25 00:09 37.4 C 93 H 104/71 94 Room Air O2 Del Method 05/16/25 04:00 05/16/25 03:16 Room Air 05/16/25 00:09 Laboratory Results Sodium 121, 122, 124, 127, 128 TB 1.4 (0.9) Hemoglobin 9.8 (12.2) WBC 6.6 (11.8) PG Care Time/CCT Total # of Minutes Spent Total Time Spent with Patient: Total time spent is greater than 50% in coordination of care (as documented) at patient's floor/unit and/or counseling patient: Coding Level of Care Code 11373 SUB INP/OBS CARE 3/50MIN Diagnoses Hyponatremia with extracellular fluid depletion E87.1 Chronic hyponatremia E87.1 Pseudohyponatremia R79.89 Alcohol use disorder, moderate, dependence F10.20 Closed nondisplaced intertrochanteric fracture of left femur, initial encounter S72.145A Encounter type: initial encounter Fracture alignment: nondisplaced Fracture type: closed Trauma T14.90XA (5) Intertrochanteric fracture of left femur Encounter type: initial encounter Fracture alignment: nondisplaced Fracture type: closed Qualified Code(s): S72.145A - Nondisplaced intertrochanteric fracture of left femur, initial encounter for closed fracture
[2025-05-16] MEDS: LACTATED RINGER'S 1,000 ML IV SCH (09:23)
[2025-05-16] MEDS: POLYETHYLENE (MIRALAX) 17 GM PACK PO SCH (09:28)
--- NOTE | 2025-05-16 10:34 | Orthopedic Progress Note ---
Date of Service May 16, 2025 Assessment & Plan (1) Intertrochanteric fracture of left femur: Plan: 65-year-old gentleman admitted with a left intertrochanteric hip fracture. Also a history of significant alcoholism and chronic hyponatremia. Medicine has been working on fixing his sodium level. We checked with anesthesia today and they are refusing surgical intervention at this point due to his persistent hyponatremia. Therefore we will vitamin D today and continue to work on this with the medicine service. Hopefully he will be adequately corrected by tomorrow. Continue DVT prophylaxis. Discussed all this with the patient and his family. (2) Chronic hyponatremia: (3) Pseudohyponatremia: (4) Alcohol use disorder, moderate, dependence: (5) Nicotine use disorder: Admission and Anticipated Discharge Date Admission Date: May 14, 2025 Subjective 65-year-old gentleman and long-term alcoholic admitted with left in tertrochanteric hip fracture. He has been admitted by the medicine service. No other injuries. He is currently undergoing detoxification and correction of his sodium. He has been kept n.p.o. but anesthesia is refusing to proceed with a anesthesia and surgery today due to her persistent hyponatremia. Patient has no new complaints. Very anxious and would like to get his hip fixed as fast as po ssible. Moderate discomfort. Physical Exam Physical Exam: Physical isiah is a pleasant middle-age male. He is lying in bed looks pretty comfortable talking to his family. Examination left hip and leg reveals it to be shortened and externally rotated. Some moderate swelling in his thigh he can dorsiflex and plantarflex his foot appropriately. Results & Data Vital Signs (Past 12 Hours) Vital Signs Temp Pulse Pulse Resp BP Pulse Ox Pulse Ox 05/16/25 07:55 36.7 C 91 H 18 115/80 95 05/16/25 04:00 36.5 C 95 H 17 104/70 94 05/16/25 03:16 94 05/16/25 00:09 37.4 C 93 H 104/71 94 O2 Del Method O2 Del Method 05/16/25 07:55 Room Air 05/16/25 04:00 Room Air 05/16/25 03:16 Room Air 05/16/25 00:09 Room Air Laboratory Results Hemoglobin is 9.8. Hematocrit is 27.8. Sodium is 128 this morning. Rest of his that electrolytes look pretty stable. (1) Intertrochanteric fracture of left femur Encounter type: initial encounter Fracture type: closed Fracture alignment: nondisplaced Qualified Code(s): S72.145A - Nondisplaced intertrochanteric fracture of left femur, initial encounter for closed fracture
--- NOTE | 2025-05-16 11:17 | Communication Note ---
Date of Service: May 16, 2025 Notified by Orthopedic Surgery that surgical intervention was anticipated to be delayed due to the patient's sodium remaining less than 130. Discussed with Dr. Cifuentes (Anesthesiologist reception agent 05/16) and reviewed the parameters discussed with Dr. Haney from 05/15 with respect to the patient's optimal sodium to undergo urgent surgical intervention for his left femoral intertrochanteric fracture. Dr. Cifuentes stated he will discuss further with Dr. Haney, but to maintain n.p.o. status to hopefully undergo surgical intervention in the afternoon 05/16.
--- NOTE | 2025-05-16 13:46 | Anesthesiology Consultation ---
Date of Service May 16, 2025 Assessment & Plan Chart Review Chart Review: Acceptable Risk for Surgery and Patient NOT seen in Pre Admission Testing Consults Requested none ASA ASA4 Proposed Anesthesia Anesthesia Type: General History Surgery Operation Date: 05/16/25 07:30 Proposed Procedures p left troch nail(Left) - Nabor Hassan MD Height/Weight Height: 5 ft 10 in Weight: 90.6 kg Allergies Allergy/AdvReac Type Severity Reaction Status Date / Time dextromethorphan Allergy Mild STRANGE Verified 04/14/25 14:20 [From Robitussin Cough and FEELING Cold CF] guaifenesin Allergy Mild STRANGE Verified 04/14/25 14:20 [From Robitussin Cough and FEELING Cold CF] phenylephrine Allergy Mild STRANGE Verified 04/14/25 14:20 [From Robitussin Cough and FEELING Cold CF] Medications Home Medications Medication Instructions Recorded Confirmed Last Taken atorvastatin 40 mg tablet 40 mg PO QPM #90 tabs 07/07/24 05/15/25 Unknown metoprolol succinate 50 mg 50 mg PO DAILY #90 tabs 07/07/24 05/15/25 Unknown tablet,extended release 24 hr albuterol sulfate 90 mcg/actuation 2 puff inhalation Q6H PRN 09/29/24 05/15/25 Unknown aerosol inhaler shortness of breath or wheezing #18 grams tiotropium bromide 2.5 2 puff inhalation DAILY #4 grams 01/18/25 05/15/25 Unknown mcg/actuation mist for inhalation (Spiriva Respimat) amlodipine 10 mg tablet 10 mg PO DAILY #30 tabs 03/31/25 05/15/25 Unknown cholecalciferol (vitamin D3) 25 25 mcg PO DAILY #30 caps 05/10/25 05/15/25 Unknown mcg (1,000 unit) capsule Active Medications Generic Name Dose Route Start Last Admin Trade Name Freq PRN Reason Stop Dose Admin Amlodipine Besylate 10 mg 05/15/25 09:00 05/16/25 09:24 Amlodipine Besylate 5 Mg Tab PO 06/14/25 08:59 10 mg DAILY TYLER Administration Atorvastatin Calcium 40 mg 05/15/25 21:00 05/15/25 20:47 Atorvastatin 40 Mg Tab PO 06/14/25 20:59 40 mg QPM TYLER Administration Bisacodyl 5 mg 05/15/25 21:00 05/15/25 20:48 Bisacodyl 5 Mg Tabec PO 06/14/25 20:59 5 mg HS TYLER Administration Folic Acid 1 mg/ Syringe 10 mls @ 5 mls/min 05/15/25 09:00 05/16/25 10:00 IV 06/14/25 08:59 5 mls/min QAM TYLER Administration Thiamine HCl 100 mg/ Syringe 10 mls @ 2 mls/min 05/15/25 09:00 05/16/25 10:00 IV 06/14/25 08:59 2 mls/min QAM TYLER Administration Acetaminophen 1,000 mg in 100 mls @ 400 mls/hr 05/15/25 16:00 05/16/25 09:37 Ofirmev IV 05/18/25 15:59 Infused Q8H TYLER Infusion Lactated Ringer's 1,000 mls @ 115 mls/hr 05/16/25 07:45 05/16/25 09:23 Lr IV 05/16/25 16:26 115 mls/hr .Q8H42M TYLER Administration Metoprolol Succinate 50 mg 05/15/25 09:00 05/16/25 09:25 Metoprolol Succ 50mg Ext Rel Tab PO 06/14/25 08:59 50 mg DAILY TYLER Administration Miscellaneous 1 each 05/15/25 08:59 05/16/25 09:23 Remove Nicoderm Patch N/A 06/14/25 08:58 1 each DAILY@0859 TYLER Administration Morphine Sulfate 2 mg 05/15/25 03:16 05/15/25 14:25 Morphine Sulfate 2 Mg/Ml Carp IV 05/29/25 03:15 2 mg Q3H PRN Administration Moderate Pain (Scale 4, 5, 6) Morphine Sulfate 4 mg 05/15/25 03:16 05/16/25 08:06 Morphine Sulfate 4 Mg/Ml 1 Ml Carp\Vial IV 05/29/25 03:15 4 mg Q3H PRN Administration Severe Pain (Scale 7, 8, 9,10) Nicotine 1 patch 05/15/25 09:00 05/16/25 09:32 Nicotine 21 Mg/24 Hr Tdsy TD 06/14/25 08:59 1 patch QAM TYLER Administration Polyethylene Glycol 17 gm 05/16/25 09:00 05/16/25 09:28 Polyethylene (Miralax) 17 Gm Pack PO 06/15/25 08:59 Not Given DAILY TYLER Umeclidinium Sweet 1 puffs 05/15/25 09:00 05/16/25 09:25 Umeclidinium Sweet 62.5mcg/Blister 7 Puffs/Inhaler INH 06/14/25 08:59 Not Given DAILY TYLER NPO Last Intake of Fluids Comment: small sip with pills Past Medical History Medical History Olecranon bursitis, right elbow Lyme arthritis Infected sebaceous cyst Empyema of left pleural space History of colon polyps Hx of migraines GERD (gastroesophageal reflux disease) Chronic obstructive pulmonary disease ASCVD Ao emphysema anemia hyponatremia etoh aBUSE HTN/HLD Exercise / Class Metabolic Activity III < 4 Walking/Shop/Light housework Past Family History Family History Father Myocardial infarction Uncle Myocardial infarction numerous uncles on maternal side Grandmother (Maternal) Myocardial infarction Mother Family history of diabetes mellitus Other Family history non-contributory No family history of adverse response to anesthesia Denies family history of Ovarian cancer Prostate cancer Breast cancer Colorectal cancer Past Surgical History Surgical History History of colonoscopy History of cataract surgery RT/LEFT History of tooth extraction S/P robot-assisted surgical procedure S/p Left robot assisted VATS History of nasal cauterization Past Anesthesia History No Hx of Anesthesia Complications and No Family Hx of Anesthesia Complications History of PONV No Hx of PONV and No Hx of Motion Sickness Social History Smoking Status: Current every day smoker tobacco type: cigarettes Smoking cigarettes per day: 20 CIG DAILY *ADVISED Do You Dip or Chew Tobacco: No Hx Alcohol Use: Yes Alcohol type: beer alcohol intake frequency: 3 or more drinks per day Hx Substance Use: Yes substance use type: marijuana Last Used Substance: Days (ago) Last Used Substance Other:: ADVISED Physical Exam Vital Signs Last Vital Signs Temp 37.1 C 05/16/25 11:05 Pulse 83 05/16/25 11:05 Resp 18 05/16/25 07:55 BP 94/73 L 05/16/25 11:05 Pulse Ox 93 05/16/25 11:05 O2 Del Method Room Air 05/16/25 11:05 O2 Flow Rate 2 05/15/25 07:16 Testing Laboratory Results 05/16/25 05:34 05/16/25 05:34 PT 10.9 Seconds (9.0-12.0) 05/14/25 21:02 INR 1.0 (0.9-1.1) 05/14/25 21:02 APTT 30 Seconds (21-31) 05/14/25 21:02 Urine Color Yellow 05/15/25 03:40 Urine Appearance Clear (Clear) 05/15/25 03:40 Urine pH 6.0 (4.5-7.5) 05/15/25 03:40 Ur Specific [place] 1.017 (1.000-1.030) 05/15/25 03:40 Urine Protein Negative (Negative) 05/15/25 03:40 Urine Glucose (UA) Negative (Negative) 05/15/25 03:40 Urine Ketones Negative (Negative) 05/15/25 03:40 Urine Nitrite Negative (Negative) 05/15/25 03:40 Ur Leukocyte Esterase Negative (Negative) 05/15/25 03:40 Blood Type O Positive 05/15/25 04:25 Antibody Screen NEGATIVE 05/15/25 04:25 Electrocardiogram Date: 05/15/25 Findings: + NSR @ (@ 71;LOW VOLTAGE) Chest X-Ray Date: 05/14/25 Findings: + NAD Stress Test Date: 06/22/21 Type: exercise Findings: + WNL and + did not achieved max HR (88%) Resting EF: 55% Valvular Disease: no significant valvular disease
[2025-05-16] MEDS ORDERED: NALOXONE HCL 0.4 MG/1 ML VIAL/CARP IV PRN (13:56)
[2025-05-16] MEDS ORDERED: FLUMAZENIL 0.1 MG/1 ML 10 ML VIAL IV PRN (13:56)
[2025-05-16] MEDS ORDERED: PROMETHAZINE HCL 6.25 MG in SODIUM CHLORIDE 0.9% 50 ML IV PRN (13:56)
[2025-05-16] MEDS ORDERED: ATROPINE SULFATE 0.1 MG/ML 10ML SYR IV PRN (13:56)
[2025-05-16] MEDS ORDERED: ONDANSETRON INJ 2 MG/ML 2 ML VIAL IV PRN (13:56)
[2025-05-16] MEDS ORDERED: MIDAZOLAM HCL 1 MG/ML 2ML VIAL ONE (14:00)
[2025-05-16] MEDS ORDERED: PROPOFOL IV EMULSION 10 MG/ML 20 ML VIAL IV ONE (14:02)
[2025-05-16] MEDS ORDERED: ceFAZolin 330 MG/ML 1 GM VIAL ONE (14:31)
[2025-05-16] MEDS: TRANEXAMIC ACID / 0.7% NACL 1,000 MG/100 ML BAG IV ONE (14:34)
[2025-05-16] MEDS ORDERED: PHENYLEPHRINE 100MCG/ML 5ML SYR ONE (15:01)
[2025-05-16] MEDS: BUPIVACAINE/EPINEPHRINE 0.5% MPF 1:200,000 30 ML VIAL ONE (15:07)
--- NOTE | 2025-05-16 15:41 | Operative Report ---
PG Post Operative Report Pre & Post Diagnosis Operation Date: 05/16/25 07:30 Pre-Op Diagnosis: Intertrochanteric fracture of left femur Post-Op Diagnosis: Intertrochanteric fracture of left femur I identified the patient and participated in the time-out.: Yes Procedure Operation Date: 05/16/25 07:30 Actual Procedures p IM Nail Left Femur(Left) - Nabor Hassan MD Surgeon Nabor Hassan MD Preanalytics Team Lead Franki Cole PA-C Estimated Blood Loss 100 Findings Consistent with Post-Op Diagnosis Specimens None Anesthesia Type General Complications none Disposition Accompanied Patient To Recovery: No Indications The patient is a 65-year-old male alcoholic who sustained mechanical fall 2 days ago. He had acute onset of pain was unable to ambulate. He was brought to emergency room where x-rays revealed a left intertrochanteric hip fracture. The patient was severely hyponatremic and a an alcohol detox. He was admitted by the medicine service and medically optimized. He is now indicated for surgical repair Description of Procedure Operative implants consists of: 1 Synthes left 380 mm x 11 mm long trochanteric nail. 2. 105 mm helical screw. 3. 44 mm x 5.0 mm distal interlocking screw x 1. I attest to the content of the Intraoperative Record and any orders documented therein. Any exceptions are noted below.
--- NOTE | 2025-05-16 16:09 | Anesthesiology Progress Note ---
Date of Service May 16, 2025 Anesthesia Post Procedure Vital Signs Vital Signs: Temp Pulse Pulse Pulse Resp BP Pulse Ox 05/16/25 16:00 36.9 C 79 16 140/87 93 05/16/25 15:50 80 16 121/80 95 05/16/25 15:40 82 18 132/84 96 05/16/25 15:34 36.6 C 83 19 143/86 H 99 05/16/25 11:05 37.1 C 83 94/73 L 93 05/16/25 07:55 36.7 C 91 H 18 115/80 95 05/16/25 05:30 57 L 05/16/25 04:00 36.5 C 95 H 17 104/70 94 05/16/25 03:16 05/16/25 00:09 37.4 C 93 H 104/71 94 05/15/25 19:00 37.1 C 89 18 115/79 96 Pulse Ox O2 Del Method O2 Del Method O2 Flow Rate 05/16/25 16:00 Nasal Cannula 2 05/16/25 15:50 Nasal Cannula 2 05/16/25 15:40 Nasal Cannula 2 05/16/25 15:34 Nasal Cannula 3 05/16/25 11:05 Room Air 05/16/25 07:55 Room Air 05/16/25 05:30 05/16/25 04:00 Room Air 05/16/25 03:16 94 Room Air 05/16/25 00:09 Room Air 05/15/25 19:00 Room Air Pain Intensity Left Hip: Pain Intensity: 8 Transfer of Care Handoff Completed per policy Notes Mental Status: alert / awake / arousable and participated in evaluation Patient Amnestic to Procedure: Yes Nausea / Vomiting: adequately controlled Pain: adequately controlled Airway Patency, RR, SpO2: stable & adequate BP & HR: stable & adequate Hydration State: stable & adequate Anesthetic Complications: no major complications apparent
[2025-05-16] MEDS: ASPIRIN 81 MG ECTAB PO SCH (20:19)
[2025-05-17 06:32] LABS: Hematocrit (blood only) 23.8 % (42.0-52.0); Hemoglobin 8.5 g/dL (14.0-18.0); Immature Granulocytes # (auto) 0.03 K/uL (0.01-0.20); Immature Granulocytes % (auto) 0.4 %; Mean Corpuscular Hemoglobin 33.6 pg (25.0-34.0); Mean Corpuscular Volume 94.1 fL (80.0-100.0); Platelet Count 212 K/uL (130-400); RDW Standard Deviation 42.6 fL (36.4-46.3); Red Blood Count 2.53 M/uL (4.70-6.10); White Blood Count 8.12 K/ul (4.8-10.8)
[2025-05-17 06:59] LABS: Anion Gap 9.0 (3-11); Blood Urea Nitrogen 15.0 mg/dl (6-23); Calcium 8.0 mg/dl (8.6-10.3); Carbon Dioxide 23.0 mmol/L (21-32); Chloride 97.0 mmol/L (98-107); Creatinine Clr Calc Pharmacy 110.5 ml/min; Glucose 95.0 mg/dl (70-99(Fasting)); Potassium 4.3 mmol/L (3.5-5.1); Sodium 129.0 mmol/L (136-145)
--- NOTE | 2025-05-17 07:01 | Orthopedic Progress Note ---
Date of Service May 17, 2025 Assessment & Plan (1) Intertrochanteric fracture of left femur: Plan: 65-year-old male long-term alcoholic now postop day 1 from IM nailing of the left inotrope fracture. Clinically he is doing pretty well. He has been significantly hyponatremic and now back to pretty much baseline. His pain seems to be controlled. He is neurologically intact. Plan: 1. DVT prophylaxis including thigh-high teds, SCDs, aspirin twice a day for 6 weeks. 2. PT/OT. Can fully weight-bear as tolerated on this left leg. 3. Pain control. Doing well with current pain regimen. 4. Hyponatremia. Medical management. Has been back to about baseline. 5. Chronic alcoholism. Currently undergoing detoxification. 6. Medical management as per the medicine service. 7. Disposition. He is orthopedically stable for discharge anytime medically stable. I need to see him back 2 to 3 weeks out from surgery date. Any orthopedic questions can be directed by [phone]. (2) Chronic hyponatremia: (3) Hyponatremia with extracellular fluid depletion: (4) Pseudohyponatremia: (5) Hypertension: (6) Hypercholesterolemia: (7) Alcohol use disorder, moderate, dependence: Admission and Anticipated Discharge Date Admission Date: May 14, 2025 Subjective 65-year-old gentleman in alcoholic now postop day 1 from IM nailing of a left inotrope fracture. He is doing better this morning. Pain using proved and reports fairly mild pain. No new complaints. No chest pain or shortness of breath. Physical Exam Physical Exam: Physical exam shows a pleasant middle-age male. He is lying in bed awake alert and oriented and looks pretty comfortable. Examination of left hip reveals the leg to be well aligned. Dressings clean dry and intact. Thigh is soft and supple. He is neurologically intact. Results & Data Vital Signs (Past 12 Hours) Vital Signs Temp Pulse Resp BP Pulse Ox Pulse Ox O2 Del Method 05/17/25 04:22 36.8 C 82 19 138/89 98 Nasal Cannula 05/17/25 03:00 98 05/17/25 03:00 99 05/17/25 00:18 36.6 C 86 21 112/84 95 Room Air 05/16/25 23:00 92 05/16/25 19:15 36.6 C 85 22 108/86 94 Room Air 05/16/25 19:00 94 O2 Del Method O2 Flow Rate O2 Flow Rate 05/17/25 04:22 2 05/17/25 03:00 Nasal Cannula 2 05/17/25 03:00 Nasal Cannula 2 05/17/25 00:18 05/16/25 23:00 Room Air 05/16/25 19:15 05/16/25 19:00 Room Air Laboratory Results Hemoglobin 8.5. Hematocrit 23.8. Electrolytes are pending. (1) Intertrochanteric fracture of left femur Encounter type: initial encounter Fracture type: closed Fracture alignment: nondisplaced Qualified Code(s): S72.145A - Nondisplaced intertrochanteric fracture of left femur, initial encounter for closed fracture
--- NOTE | 2025-05-17 07:22 | Hospitalist Progress Note ---
Date of Service May 17, 2025 Assessment & Plan (1) Hyponatremia with extracellular fluid depletion: (2) Chronic hyponatremia: (3) Pseudohyponatremia: (4) Intertrochanteric fracture of left femur: (5) Trauma: (6) Alcohol use disorder, moderate, dependence: Plan In summary this is a 65-year-old male admitted to [facility] with a left intertrochanteric hip fracture subsequent of a fall precipitated by alcohol intoxication complicated by alcohol use disorder and a combination of chronic as well as pseudohyponatremia #Chronic hypovolemic hyponatremia // Translocational hyponatremia (Resolved) Presenting serum sodium of 121; euvolemic vs borderline hypovolemic at presentation; complicated by presenting intoxication with alcohol level of 206; the patient is not prescribed any SSRIs, antiepileptics, sulfonylureas, opioids, or thiazides in the outpatient setting; calculated serum osmolarity of 297 from admitting laboratory assessment, serum osmolarity measure from midday 05/15 of 257; urine osmolarity and urine sodium measures suggestive of hypovolemic hyponatremia without salt wasting; in summary, initial assessment most consistent with a translocational hyponatremia from ethanol intoxication then developing a hypovolemic hyponatremia which was managed with DDAVP clamp and hypertonic saline infusions; remains diminished postoperatively at 128, repeat assessment at this time to determine cause of persistent hyponatremia - Intake and output measure every shift - Follow daily RFP and Magnesium - Continue maintenance IV fluids with LR at 115 mL/hr #Alcohol use disorder, high risk for complicated withdrawal // Alcohol intoxication at presentation PAWSS score of 4; likelihood ratio of 174 for complicated alcohol withdraw; given the risk of complicated withdrawal in addition to the need for surgical intervention during the patient's hospitalization, a frontloaded active phenobarbital protocol was initially pursued but due to concerns of phenobarbital in the setting of anticipated surgical intervention, this was discontinued and a reactive benzodiazepine plan was initiated; without findings of withdrawal at this time, discontinue AWSS assessments based on timeline since last drink and lack of withdrawal symptoms at this time Transition thiamine to 100 mg p.o. daily Transition folic acid 1 mg IV to p.o. daily #Left intertrochanteric femoral fracture // Trauma Presented with left intertrochanteric femoral fracture; orthopedic surgery consulted and hopeful for surgical intervention on 05/15 however this was delayed at the request of anesthesia due to the patient's degree of hyponatremia; underwent surgical intervention 05/16 without complication - Tertiary survey completed 05/16 - Pain management primarily managed by Orthopedic surgery - Bowel regimen in place - PT and OT consulted to assist with disposition The remainder the patient's chronic medical conditions are stable and do not require adjustment to their outpatient regimen at this time DVT PPx: Continue ASA 81 mg p.o. twice daily GI PPx: Not indicated at this time Admission and Anticipated Discharge Date Admission Date: May 14, 2025 Subjective Mr. Pineda is a 65-year-old male who presented to the [facility] after an unwitnessed fall resulting in left intertrochanteric hip fracture whilst intoxicated with alcohol. No acute overnight events Review of Systems Review of Systems: Review of constitutional, cardiovascular, pulmonary, gastrointestinal, genitourinary, neurovascular, musculoskeletal systems was unremarkable except for pertinent positive and negative findings discussed above Physical Exam Physical Exam: General: Elderly male in no acute distress, fatigued Vital Signs: Reviewed HEENT: Tacky mucous membranes; pupils equally round and reactive to light, extraocular motion intact Neck: No tenderness to palpation along the midline cervical spine nor evidence of acute injury Pulmonary: Symmetric chest wall excursion without restriction; clear to auscultation bilaterally Cardiovascular: Regular rate and rhythm without murmurs, rubs, or gallops; S1 and S2 normal; left radial pulse 2+; left posterior tibial and dorsalis pedis pulse 2+ Gastrointestinal: Soft, nontender Neurologic: Cranial nerves II through XII grossly intact; left lower extremity is neurovascularly intact Skin: surgical site appears well Results & Data Results & Data Vital Signs (Past 12 Hours) Vital Signs Temp Pulse Resp BP Pulse Ox Pulse Ox O2 Del Method 05/17/25 04:22 36.8 C 82 19 138/89 98 Nasal Cannula 05/17/25 03:00 98 05/17/25 03:00 99 05/17/25 00:18 36.6 C 86 21 112/84 95 Room Air 05/16/25 23:00 92 O2 Del Method O2 Flow Rate O2 Flow Rate 05/17/25 04:22 2 05/17/25 03:00 Nasal Cannula 2 05/17/25 03:00 Nasal Cannula 2 05/17/25 00:18 05/16/25 23:00 Room Air Laboratory Results Hemoglobin 8.5 (9.8) Serum sodium 129 PG Care Time/CCT Total # of Minutes Spent Total Time Spent with Patient: Total time spent is greater than 50% in coordination of care (as documented) at patient's floor/unit and/or counseling patient: Coding Level of Care Code 94540 SUB INP/OBS CARE 2/35MIN Diagnoses Hyponatremia with extracellular fluid depletion E87.1 Chronic hyponatremia E87.1 Pseudohyponatremia R79.89 Closed nondisplaced intertrochanteric fracture of left femur, initial encounter S72.145A Encounter type: initial encounter Fracture alignment: nondisplaced Fracture type: closed Trauma T14.90XA Alcohol use disorder, moderate, dependence F10.20 (4) Intertrochanteric fracture of left femur Encounter type: initial encounter Fracture alignment: nondisplaced Fracture type: closed Qualified Code(s): S72.145A - Nondisplaced intertrochanteric fracture of left femur, initial encounter for closed fracture
--- NOTE | 2025-05-17 07:34 | Fluoroscopy Report ---
FL hip LT 2-3V CLINICAL HISTORY: LT HIP TROCH COMPARISON STUDY: Pelvis and left hip radiographs May 14, 2025. Fluoroscopy time: 1 minute and 24 seconds. Number of fluoroscopic images: 5. Ka,r: 27.00 mGy. FINDINGS: Fluoroscopy was provided during open reduction and internal fixation of the intertrochanter ic fracture of the left femur with trochanteric nail. Hardware is intact. Fracture alignment has sign ificantly improved. IMPRESSION: Fluoroscopy provided during open reduction and internal fixation of the intertrochanteri c fracture of the left femur. ACT 112: Negative or not required by law. Electronically signed by: Tyrone Vasquez M.D. 05/17/2025 7:33 AM
[2025-05-17] MEDS: FOLIC ACID 1 MG TAB PO SCH (09:25)
[2025-05-17] MEDS: THIAMINE HCL 100 MG TAB PO SCH (09:25)
[2025-05-17 09:34] LABS: Prealbumin 12.1 mg/dl (20-40)
[2025-05-17] MEDS: LACTATED RINGER'S 1,000 ML IV SCH (12:29)
[2025-05-18 07:18] LABS: Hematocrit (blood only) 22.1 % (42.0-52.0); Hemoglobin 7.7 g/dL (14.0-18.0); Immature Granulocytes # (auto) 0.03 K/uL (0.01-0.20); Immature Granulocytes % (auto) 0.5 %; Mean Corpuscular Hemoglobin 33.0 pg (25.0-34.0); Mean Corpuscular Volume 94.8 fL (80.0-100.0); Platelet Count 215 K/uL (130-400); RDW Standard Deviation 42.4 fL (36.4-46.3); Red Blood Count 2.33 M/uL (4.70-6.10); White Blood Count 6.14 K/ul (4.8-10.8)
--- NOTE | 2025-05-18 07:30 | Hospitalist Progress Note ---
Date of Service May 18, 2025 Assessment & Plan (1) Hyponatremia with extracellular fluid depletion: (2) Chronic hyponatremia: (3) Pseudohyponatremia: (4) Intertrochanteric fracture of left femur: (5) Trauma: (6) Alcohol use disorder, moderate, dependence: (7) Acute blood loss as cause of postoperative anemia: Plan In summary this is a 65-year-old male admitted to [facility] with a left intertrochanteric hip fracture subsequent of a fall precipitated by alcohol intoxication complicated by alcohol use disorder and a combination of chronic as well as pseudohyponatremia #Chronic hypovolemic hyponatremia // Translocational hyponatremia (Resolved) Presenting serum sodium of 121; euvolemic vs borderline hypovolemic at presentation; complicated by presenting intoxication with alcohol level of 206; the patient is not prescribed any SSRIs, antiepileptics, sulfonylureas, opioids, or thiazides in the outpatient setting; calculated serum osmolarity of 297 from admitting laboratory assessment, serum osmolarity measure from midday 05/15 of 257; urine osmolarity and urine sodium measures suggestive of hypovolemic hyponatremia without salt wasting; in summary, initial assessment most consistent with a translocational hyponatremia from ethanol intoxication then developing a hypovolemic hyponatremia which was managed with DDAVP clamp and hypertonic saline infusions; remains diminished postoperatively at 128, repeat assessment from 05/18 is more consistent with SIAD versus primary adrenal insufficiency - Intake and output measure every shift - Follow daily RFP and Magnesium - Morning Cortisol pending 05/19 #Alcohol use disorder, high risk for complicated withdrawal // Alcohol intoxication at presentation PAWSS score of 4; likelihood ratio of 174 for complicated alcohol withdraw; given the risk of complicated withdrawal in addition to the need for surgical intervention during the patient's hospitalization, a frontloaded active phenobarbital protocol was initially pursued but due to concerns of phenobarbital in the setting of anticipated surgical intervention, this was discontinued and a reactive benzodiazepine plan was initiated; without findings of withdrawal at this time, discontinue AWSS assessments based on timeline since last drink and lack of withdrawal symptoms at this time Continue thiamine 100 mg p.o. daily Continue folic acid 1 mg p.o. daily #Left intertrochanteric femoral fracture // Acute blood loss anemia // Trauma Presented with left intertrochanteric femoral fracture; orthopedic surgery consulted and hopeful for surgical intervention on 05/15 however this was delayed at the request of anesthesia due to the patient's degree of hyponatremia; underwent surgical intervention 05/16 without complication; the patient's hemoglobin trend is suggestive of an acute blood loss anemia, likely consequential of surgical intervention however could also be due to dilution from intravenous fluids given the mild down trend of WBC and platelets, primarily suspect the former - Tertiary survey completed 05/16 - Pain management primarily managed by Orthopedic surgery - Bowel regimen in place - PT and OT consulted to assist with disposition - Reassess H&H at 1300 hours on 05/18 The remainder the patient's chronic medical conditions are stable and do not require adjustment to their outpatient regimen at this time DVT PPx: Continue ASA 81 mg p.o. twice daily GI PPx: Not indicated at this time If hemoglobin measure is stable, the patient is medically ready for discharge Admission and Anticipated Discharge Date Admission Date: May 14, 2025 Subjective Mr. Pineda is a 65-year-old male who presented to the [facility] after an unwitnessed fall resulting in left intertrochanteric hip fracture whilst intoxicated with alcohol. No acute overnight events Review of Systems Review of Systems: Review of constitutional, cardiovascular, pulmonary, gastrointestinal, genitourinary, neurovascular, musculoskeletal systems was unremarkable except for pertinent positive and negative findings discussed above Physical Exam Physical Exam: General: Elderly male in no acute distress, fatigued Vital Signs: Reviewed HEENT: Tacky mucous membranes; pupils equally round and reactive to light, extraocular motion intact Neck: No tenderness to palpation along the midline cervical spine nor evidence of acute injury Pulmonary: Symmetric chest wall excursion without restriction; clear to auscultation bilaterally Cardiovascular: Regular rate and rhythm without murmurs, rubs, or gallops; S1 and S2 normal; left radial pulse 2+; left posterior tibial and dorsalis pedis pulse 2+ Gastrointestinal: Soft, nontender Neurologic: Cranial nerves II through XII grossly intact; left lower extremity is neurovascularly intact Skin: surgical site appears well Results & Data Results & Data Vital Signs (Past 12 Hours) Vital Signs Temp Pulse Resp BP Pulse Ox O2 Del Method 05/18/25 07:16 36.4 C L 75 18 113/71 96 Room Air 05/18/25 00:07 37.2 C 89 16 112/76 92 Room Air PG Care Time/CCT Total # of Minutes Spent Total Time Spent with Patient: Total time spent is greater than 50% in coordination of care (as documented) at patient's floor/unit and/or counseling patient: Coding Level of Care Code 61587 SUB INP/OBS CARE MIN Diagnoses Hyponatremia with extracellular fluid depletion E87.1 Chronic hyponatremia E87.1 Pseudohyponatremia R79.89 Closed nondisplaced intertrochanteric fracture of left femur, initial encounter S72.145A Encounter type: initial encounter Fracture alignment: nondisplaced Fracture type: closed Trauma T14.90XA Alcohol use disorder, moderate, dependence F10.20 Acute blood loss as cause of postoperative anemia D62 (4) Intertrochanteric fracture of left femur Encounter type: initial encounter Fracture alignment: nondisplaced Fracture type: closed Qualified Code(s): S72.145A - Nondisplaced intertrochanteric fracture of left femur, initial encounter for closed fracture
[2025-05-18 07:43] LABS: RBC Morphology Unremarkable
--- NOTE | 2025-05-18 08:09 | Orthopedic Progress Note ---
Date of Service May 18, 2025 Assessment & Plan (1) Intertrochanteric fracture of left femur: * Continue Current Treatment * S/p left TFN * Weight bearing status: WBAT * Daily treatment: Physical Therapy/ Occupational Therapy per protocol * Pain control * Continue to monitor for ABLA * DVT prophylaxis, ok to resume from ortho standpoint * Disposition: Rehab * Office/hospital f/u 2 weeks for progress check and staple/suture removal * Remainder care per primary team Subjective . Active Problems: S/p left TFN POD 2 65 y/o male s/p left TFN. Doing well overall, pain managed and improved function. Denies fever/chills, chest pain/SOB, nausea/vomiting. Otherwise no complaints. Review of Systems All systems reviewed & are unremarkable except as noted in HPI & below. Physical Exam . * General: Alert and oriented, no acute distress * Constitutional: well-developed, well-nourished. * Respiratory: Normal respiratory effort, no distress * Gastrointestinal: No tenderness to palpation, no rigidity or guarding. * Skin: No rash or lesion. * Neurologic: Grossly normal * Musculoskeletal: Left hip surgical dressing CDI, not removed for exam. Otherwise no obvious deformity or overlying skin changes. Diffuse TTP proximal thigh and hip region. Otherwise no specific tenderness of distal thigh, lower leg, foot/ankle. AROM hip flexion intact. AROM foot/ankle intact. Sensation intact plantar/dorsal foot. Brisk capillary refill. Results & Data Results & Data Laboratory Results . Diagnostic Findings . PG Care Time/CCT Total # of Minutes Spent Total Time Spent with Patient: Total time spent is greater than 50% in coordination of care (as documented) at patient's floor/unit and/or counseling patient: Coding Level of Care Code 71406 Post Operative Follow-Up Diagnoses Closed nondisplaced intertrochanteric fracture of left femur, initial encounter S72.145A Encounter type: initial encounter Fracture type: closed Fracture alignment: nondisplaced (1) Intertrochanteric fracture of left femur Encounter type: initial encounter Fracture type: closed Fracture alignment: nondisplaced Qualified Code(s): S72.145A - Nondisplaced intertrochanteric fra cture of left femur, initial encounter for closed fracture
[2025-05-18 13:43] LABS: Hematocrit (blood only) 21.4 % (42.0-52.0); Hemoglobin 7.5 g/dL (14.0-18.0)
--- NOTE | 2025-05-18 13:45 | Communication Note ---
Date of Service: May 18, 2025 Reassessment of hemoglobin improved, no indication for transfusion at this time
[2025-05-18] MEDS: POLYETHYLENE (MIRALAX) 17 GM PACK PO SCH (18:10)
[2025-05-19 07:39] LABS: Hematocrit (blood only) 21.6 % (42.0-52.0); Hemoglobin 7.6 g/dL (14.0-18.0); Immature Granulocytes # (auto) 0.04 K/uL (0.01-0.20); Immature Granulocytes % (auto) 0.6 %; Mean Corpuscular Hemoglobin 33.3 pg (25.0-34.0); Mean Corpuscular Volume 94.7 fL (80.0-100.0); Platelet Count 234 K/uL (130-400); RDW Standard Deviation 42.7 fL (36.4-46.3); Red Blood Count 2.28 M/uL (4.70-6.10); White Blood Count 7.06 K/ul (4.8-10.8)
[2025-05-19 08:02] LABS: Polychromasia 1+
[2025-05-19 08:03] LABS: Albumin Level 3.4 gm/dl (3.4-5.0); Anion Gap 6.0 (3-11); Blood Urea Nitrogen 9.0 mg/dl (6-23); Calcium 8.3 mg/dl (8.6-10.3); Carbon Dioxide 26.0 mmol/L (21-32); Chloride 98.0 mmol/L (98-107); Creatinine Clr Calc Pharmacy 123.3 ml/min; Glucose 90.0 mg/dl (70-99(Fasting)); Potassium 4.1 mmol/L (3.5-5.1); Sodium 130.0 mmol/L (136-145)
--- NOTE | 2025-05-19 08:41 | Orthopedic Progress Note ---
Date of Service May 19, 2025 Assessment & Plan (1) Intertrochanteric fracture of left femur: * Continue Current Treatment * S/p left TFN * Weight bearing status: WBAT * Daily treatment: Physical Therapy/ Occupational Therapy per protocol * Pain control * Continue to monitor for ABLA * DVT prophylaxis, ok to resume from ortho standpoint * Disposition: Rehab * Office/hospital f/u 2 weeks for progress check and staple/suture removal * Remainder care per primary team, stable for discharge from ortho standpoint Subjective Active Problems: S/p left TFN POD 3 65 y/o male s/p left TFN. Doing well overall, pain managed and improved function. Denies fever/chills, chest pain/SOB, nausea/vomiting. Otherwise no complaints. Review of Systems All systems reviewed & are unremarkable except as noted in HPI & below. Physical Exam * Musculoskeletal: Left hip surgical dressing CDI, not removed for exam. Otherwise no obvious deformity or overlying skin changes. Diffuse TTP proximal thigh and hip region. Otherwise no specific tenderness of distal thigh, lower leg, foot/ankle. AROM hip flexion intact. AROM foot/ankle intact. Sensation intact plantar/dorsal foot. Brisk capillary refill. Results & Data Results & Data Laboratory Results . Diagnostic Findings . PG Care Time/CCT Total # of Minutes Spent Total Time Spent with Patient: Total time spent is greater than 50% in coordination of care (as documented) at patient's floor/unit and/or counseling patient: Coding Level of Care Code 30243 Post Operative Follow-Up Diagnoses Closed nondisplaced intertrochanteric fracture of left femur, initial encounter S72.145A Encounter type: initial encounter Fracture type: closed Fracture alignment: nondisplaced (1) Intertrochanteric fracture of left femur Encounter type: initial encounter Fracture type: closed Fracture alignment: nondisplaced Qualified Code(s): S72.145A - Nondisplaced intertrochanteric fracture of left femur, initial encounter for closed fracture
--- NOTE | 2025-05-19 15:37 | Hospitalist Progress Note ---
Date of Service May 19, 2025 Assessment & Plan (1) Intertrochanteric fracture of left femur: (2) Chronic hyponatremia: (3) Alcohol use disorder, moderate, dependence: (4) Acute blood loss as cause of postoperative anemia: Plan 65-year-old man who fell while intoxicated and sustained left femur fracture. This was repaired with an intramedullary nail on 05/[address] Hassan. He is currently awaiting SNF placement for rehab # left hip fracture status post intramedullary nail - he is moving his bowels and Crump catheter has been removed - continue PT and OT - aspirin 81 mg twice daily for 6 weeks for DVT prophylaxis - follow-up with orthopedics Dr. 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 Presenting sodium was 121 - he has been on twice daily salt tabs and strict water restriction of 1 L sodium has improved to 130 and has remained stable. this is about his baseline - for SIADH: stop the fluid restriction placed on regular salt diet added twice daily protein supplement - A.m. BMP # alcohol use disorder - judged high risk for complicated withdrawal based on PAWS score however did not develop alcohol withdrawal during this admission # alcohol intoxication at the time of admission with blood alcohol level of 206 # COPD has remained stable continue albuterol as needed and tiotropium inhalers # hypertension and hyperlipidemia - remained stable - continue metoprolol amlodipine and atorvastatin DVT prophylaxis twice daily aspirin medically ready for discharge to rehab setting Admission and Anticipated Discharge Date Admission Date: May 14, 2025 Subjective Himanshu is feeling pretty well his left hip remains painful but not too bad he has been able to be up and out of bed with assistance he notes that his left hip flexor has been affected and is hard to lift his leg no chest pain or shortness of breath no abdominal pain nausea or vomiting he has not had any alcohol withdrawal symptoms Physical Exam Physical Exam: Last 24h vitals reviewed GEN: no acute distress, sitting in bed HEENT: pupils equal, sclerae anicteric, moist MM RESP: normal WOB, CTAB CV: reg no mrg ABD: soft/nt/nd +BT : no crump SKIN: warm and dry, no generalized rashes extremities: Left hip incision is dressed with no strikethrough there is some moderate edema of the entire left leg, no ecchymoses, both lower extremities are warm and well-perfused NEURO: AOx person, place, and situation. Face symmetric, speech normal, moves 4 ext spontaneously and equally. no tremor or diaphoresis Results & Data Results & Data Vital Signs (Past 12 Hours) Vital Signs Temp Pulse Resp BP Pulse Ox O2 Del Method 05/19/25 08:09 36.4 C L 83 18 110/70 90 Room Air 05/19/25 07:20 Room Air Laboratory Results sodium is 130 creatinine is 0.7 Cortisol is 17, TSH was normal in March of this year Hemoglobin is 7.6 which is unchanged from yesterday PG Care Time/CCT Total # of Minutes Spent Total Time Spent with Patient: Total time spent is greater than 50% in coordination of care (as documented) at patient's floor/unit and/or counseling patient: Coding Level of Care Code 00229 SUB INP/OBS CARE 2/35MIN Diagnoses Closed nondisplaced intertrochanteric fracture of left femur, initial encounter S72.145A Encounter type: initial encounter Fracture type: closed Fracture alignment: nondisplaced Chronic hyponatremia E87.1 Alcohol use disorder, moderate, dependence F10.20 Acute blood loss as cause of postoperative anemia D62 (1) Intertrochanteric fracture of left femur Encounter type: initial encounter Fracture type: closed Fracture alignment: nondisplaced Qualified Code(s): S72.145A - Nondisplaced intertrochanteric fracture of left femur, initial encounter for closed fracture
[2025-05-19] MEDS ORDERED: CALCIUM CARBONATE 500 MG CHEWABLE TAB PO PRN (15:58)
[2025-05-19] MEDS: FAMOTIDINE 20 MG TAB PO PRN (16:06)
[2025-05-19] MEDS: MELATONIN 3 MG TAB PO PRN (20:12)
[2025-05-19 23:54] VITALS: RESP 18
[2025-05-20 07:10] LABS: Hematocrit (blood only) 21.0 % (42.0-52.0); Hemoglobin 7.4 g/dL (14.0-18.0); Immature Granulocytes # (auto) 0.03 K/uL (0.01-0.20); Immature Granulocytes % (auto) 0.5 %; Mean Corpuscular Hemoglobin 33.8 pg (25.0-34.0); Mean Corpuscular Volume 95.9 fL (80.0-100.0); Platelet Count 267 K/uL (130-400); RDW Standard Deviation 43.1 fL (36.4-46.3); Red Blood Count 2.19 M/uL (4.70-6.10); White Blood Count 5.50 K/ul (4.8-10.8)
[2025-05-20 07:42] LABS: Polychromasia 1+
[2025-05-20 08:06] LABS: Anion Gap 8.0 (3-11); Blood Urea Nitrogen 11.0 mg/dl (6-23); Calcium 8.2 mg/dl (8.6-10.3); Carbon Dioxide 25.0 mmol/L (21-32); Chloride 97.0 mmol/L (98-107); Creatinine Clr Calc Pharmacy 127.0 ml/min; Glucose 90.0 mg/dl (70-99(Fasting)); Potassium 3.9 mmol/L (3.5-5.1); Sodium 130.0 mmol/L (136-145)
[2025-05-20 08:54] VITALS: TEMP 97.3; O2SAT 97
--- NOTE | 2025-05-20 10:01 | Discharge Summary ---
Discharge Summary Date of Service May 20, 2025 Principal Dx & Hospital Course #1 = Principal Diagnosis (1) Intertrochanteric fracture of left femur: (2) Chronic hyponatremia: (3) Alcohol use disorder, moderate, dependence: (4) Acute blood loss as cause of postoperative anemia: Plan 65-year-old man who fell while intoxicated and sustained left femur fracture. This was repaired with an intramedullary nail on 05/[address] Hassan. He is doing well, SNF placement for rehab # left hip fracture status post intramedullary nail - he is moving his bowels and Crump catheter has been removed - continue PT and OT - aspirin 81 mg twice daily for 6 weeks for DVT prophylaxis - follow-up with orthopedics Dr. 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 Presenting sodium was 121 - sodium has been stable near 130 past four days. this is about his baseline - for SIADH: regular salt diet, twice daily protein supplement, drink to thirst and do not over-drink fluids, no specific fluid restriction - recommend BMP in about a week # alcohol use disorder - did not develop alcohol withdrawal during this admission # alcohol intoxication at the time of admission with blood alcohol level of 206 - consider MAT with naltrexone oral or IM # COPD has remained stable continue albuterol as needed and tiotropium inhalers # hypertension and hyperlipidemia - remained stable - continue metoprolol amlodipine and atorvastatin # nicotine dependence - controlled with nicotine patch DVT prophylaxis twice daily aspirin medically ready for discharge to rehab setting Notes For Next Care Provider L hip fracture repaired Acute on chronic hyponatremia, multifactorial, underlying SIADH Admission HPI Per Admitting Provider Patient is a 65-year-old male with a past medical history of alcohol use, tobacco use, GERD, COPD, HTN. Patient presented via EMS as a trauma alert after he slipped on ice at home. Patient found to have commuted displaced left intertrochanteric femur fracture, otherwise diagnostic imaging negative for acute traumatic changes. Patient also with sodium of 121 suspect infected to be beer potomania. patient is agreeable to go through alcohol detox while he is admitted as he typically drinks 8-10 beers per day for the past few years, no signs of withdrawal on admission and treating with Valium. Patient seen at bedside. He is alert and oriented x 3 however appears mildly confused with acute intoxication, EtOH level ordered. Patient stated he slipped on ice at home falling onto his left hip, denies head strike or loss of consciousness. He is feeling well at bedside other than 5/10 left hip pain, receiving morphine 2 mg IV with nursing staff actively. He denies any dizziness, lightheadedness, chest pain, shortness of breath, abdominal pain, nausea, vomiting, numbness, tingling, urinary symptoms. Patient is agreeable to admission and possible surgical management for fracture. Patient endorses smoking 1.5 packs/day of cigarettes and occasional marijuana use (denies daily use). Patient also endorses chronic alcohol use for several years in which he typically drinks 8-10 beers per day, last drink was prior to arrival 05/14. He stated he drank less today than his usual amount. He stated he has gone weeks before without drinking and denies any withdrawal symptoms or seizures during that time. He is agreeable to detox from alcohol during inpatient stay. Patient denies any oxygen use, O2 dropped to 88% on room air after receiving morphine in the ED. He is due for his evening medications. He wishes to be full code. Discharge Exam Last 24h vitals reviewed GEN: no acute distress, napping in bed, aroused easily HEENT: pupils equal, sclerae anicteric, moist MM RESP: normal WOB, CTAB CV: reg no mrg ABD: soft/nt/nd +BT : no crump EXT: LLE dressing and incision cdi. no drainage. ecchymosis and swelling of left thigh, ecchymosis starting to track down leg SKIN: warm and dry, no generalized rashes NEURO: AOx person, place, and situation. Face symmetric, speech normal, moves 4 ext spontaneously and equally. no tremor or diaphoresis Discharge Plan Discharge Items Patient Disposition: Transfer Alf Fac Reason For Visit: TRAUMA, HIP FX, ALC WITHDRAWAL, HYPONATREMIA Discharge Diagnosis: IM Nail fixation of Left Hip Fracture Condition on Discharge: Good Activity: Per Instructions section Weightbearing: Full weightbearing Non-emergency contact: Surgeon Call non-emergency contact if: your symptoms worsen, your temperature is above 101.5, your wound has increased redness and your wound has increased drainage Follow-up/Referrals: Manpreet Casillas CRNP [Primary Care Provider] - Nabor Hassan MD [Physician] - Diet: Regular Addtl Attending Provider Instructions: PT and OT evaluate and treat BID protein supplement for hyponatremia, normal salt diet, drink to thirst and avoid over-drinking fluids no specific fluid restriction Please check BMP in 1 week. Sodium 130 on 05/20 and stable/slowly improving last four days Bowel regimen per protocol. LBM 05/20 Has not been needing opioid for pain Addtl Center Rep Provider Instructions: General Orthopedic Discharge Instructions Activity: WBAT Diet: You may resume previous diet. Medications: 1. Narcotic You will likely be sent home from the hospital with a prescription for the narcotic pain medication. Take it as needed. Side effects most commonly include nausea and constipation 2. Resume previous home medications unless otherwise instructed Dressing Care: If there is a soft dressing in place then leave the dressing intact for 5 days. On the you may remove the dressing and leave the stitches open to air or cover them with band-aids. Keep the incision clean and dry If there is a hard splint then leave it in place until your follow-up visit in 2 weeks Showering: If you have a soft dressing you may shower right after the surgery but do not get the dressing wet. After the dressing is removed on the 5th day then you can get the stitches wet in the shower, but do not soak or scrub them. Let the soapy shower water run over the stitches and pat them dry. If you have a hard splint, cover it in a plastic bag and keep it dry. Do not remove it until the follow up appointment. Things To Watch For: 1. Drainage from the incision site that occurs more than one week after your surgery. 2. Increased redness at the incision site. 3. Fever above 102 degrees Fahrenheit. 4. Unusual chest pain or shortness of breath. 5. Call [facility] at with any of the above problems. Follow-Up Visit: Please make arrangements to follow-up with Dr. Hassan team approximately 2 weeks after your day of surgery for progress check and staple/suture removal. If you have any questions call Pending Studies at Discharge: No Stand-Alone Forms: My [facility] Skilled Items Patient informed of condition?: Yes DNR: No Discharge Level of Care: Skilled Communicable Disease: No Discharge Prognosis: Improving Lines: None Urinary Catheter: No Medications and DC Order Prescriptions: New acetaminophen 325 mg tablet 650 mg PO Q4H MDD 3000 mg PRN (Reason: fever or pain) Qty: 30 0RF nicotine [Nicoderm CQ] 21 mg/24 hr Patch 24 Hour 1 patch transdermal QAM Qty: 0 0RF folic acid 1 mg Tablet 1 mg PO QAM Qty: 0 0RF thiamine HCl (vitamin B1) 100 mg Tablet 100 mg PO QAM Qty: 0 0RF calcium carbonate [Tums] 200 mg calcium (500 mg) Tablet,Chewable 1,500 mg PO BID PRNQty: 0 0RF melatonin 3 mg Tablet 3 mg PO HS PRNQty: 0 0RF bisacodyl [Gentle Laxative (bisacodyl)] 5 mg Tablet,Delayed Release (Dr/Ec) 5 mg PO HS PRN (Reason: constipation) Qty: 0 0RF aspirin 81 mg Tablet,Delayed Release (Dr/Ec) 81 mg PO BID Qty: 0 0RF ferrous sulfate 220 mg (44 mg iron)/5 mL Elixir 325 mg PO Q48H Qty: 0 0RF famotidine 20 mg Tablet 20 mg PO BID PRNQty: 0 0RF Continued metoprolol succinate 50 mg tablet extended release 24 hr 50 mg PO DAILY Qty: 90 2RF Patient Comments: Qam atorvastatin 40 mg tablet 40 mg PO QPM Qty: 90 2RF albuterol sulfate 90 mcg/actuation HFA aerosol inhaler 2 puff inhalation Q6H PRN (Reason: shortness of breath or wheezing) Qty: 18 3RF Spiriva Respimat 2.5 mcg/actuation mist 2 puff inhalation DAILY Qty: 4 3RF Patient Comments: TAKES PRN SOB cholecalciferol (vitamin D3) 25 mcg (1,000 unit) capsule 25 mcg PO DAILY Qty: 30 0RF amlodipine 10 mg tablet 10 mg PO DAILY Qty: 30 2RF Patient Comments: 12/6- 10 mg dose filled 05/07 for 30 day supply; 5 mg dose filled 05/07 for 90 day supply Discharge Orders: Discharge Order (Routine); Ordered 05/20/25 Ordered By: Anila Cardoso Admission Data Admit Date/Time: 05/14/25 22:29 Attending Provider: Anila Cardoso Admit Provider: Joey Moctezuma Primary Care Provider: Manpreet Casillas Other Providers: Joey Moctezuma; Nabor Hassan; [facility] Stay Data Consultations 05/14/25 22:03 ED Decision to Admit Stat 05/15/25 03:16 Consult Orthopedic Surgery Routine Procedures Performed Operation Date: 05/16/25 07:30 Actual Procedures p IM Nail Left Femur(Left) - Nabor Hassan MD Diagnostic Imagining Performed 05/14/25 20:58 CT abd pelvis IV con only Stat CT cervical spine wo con Stat CT chest diagnostic w con Stat CT head/brain wo con Stat 05/16/25 FL hip LT 2-3V Routine Pending Results Patient Have Any Pending Studies at Discharge: No Discharge Instructions Given to Patient (Per Discharging Provider) PT and OT evaluate and treat BID protein supplement for hyponatremia, normal salt diet, drink to thirst and avoid over-drinking fluids no specific fluid restriction Please check BMP in 1 week. Sodium 130 on 05/20 and stable/slowly improving last four days Bowel regimen per protocol. LBM 05/20 Has not been needing opioid for pain Total Time Total Time Spent Total Time Spent (In Minutes): I personally spent: 40 minutes today on clinical care activities including: reviewing chart notes and vital signs reviewing labs examining and counseling the patient writing orders writing prescriptions, discharge instructions documentation Coding Level of Care Code 12971 INP/OBS DISCH >30 MIN Diagnoses Closed nondisplaced intertrochanteric fracture of left femur, initial encounter S72.145A Encounter type: initial encounter Fracture type: closed Fracture alignment: nondisplaced Chronic hyponatremia E87.1 Alcohol use disorder, moderate, dependence F10.20 Acute blood loss as cause of postoperative anemia D62
[2025-05-20 10:39] VITALS: BP 102/65; PULSE 79
[2025-05-20] MEDS: ACETAMINOPHEN 325 MG TAB PO SCH (10:42)
[2025-05-21] MEDS ORDERED: FERROUS SULFATE 325 MG/7.4 ML UDP PO SCH (16:00)
== END 2025-05-20 11:14 | DRG 481 ==
LOC: SUATTDRO → ED 20:45 → SUATTDRO 22:29 → EDINP 22:29 → 2E 05-15 03:16 → 3W 05-17 08:38